=== PATIENT | male | born 1960 | race Caucasian/White ===

== ENCOUNTER → 2020-10-18 16:03 | Outpatient (BNVA) | payer OTHER, SELFPAY | PROVIDERS: Family Provider Family Medicine; Visit Provider Nurse Practitioner Family | DX: Z01.812 Encounter for preprocedural laboratory examination (principal); Z20.822 Contact with and (suspected) exposure to COVID-19 | CPT/HCPCS: 87635 ==

== ENCOUNTER 2020-10-24 09:01 | Outpatient (CLI) | payer OTHER, SELFPAY ==
--- NOTE | 2020-10-24 09:10 | XRR_ITS ---
PROCEDURE INFORMATION: Exam: XR Chest Exam date and time: 10/24/2020 9:27 AM Age: 60 years old Clinical indication: Patient HX: Chest pain TECHNIQUE: Imaging protocol: XR of the chest. Views: Frontal and lateral upright, 2 views. COMPARISON: CR Chest 2 views* [id number] 12/29/2013 2:00 PM FINDINGS: Lungs: The pulmonary vasculature remains congested. Bilateral lateral basilar subsegmental atelectasis. The lungs are otherwise peripherally clear bilaterally. Pleural spaces: No pleural effusion. No pneumothorax. Heart/Mediastinum: The heart is normal in size and contour. Bones/joints: Stable. XR/XR chest 2V* [id number] IMPRESSION: 1. Persistent pulmonary vascular congestion. 2. Bilateral lateral basilar subsegmental atelectasis.
--- NOTE | 2020-10-24 09:11 | USCV_ITS ---
Warren Mix Age: 60 Gender: M : 1960 Exam Date: 10/24/2020 09:44 Ordering Phys: Technologist: Kevin Estrada Exam Location: [facility] [place] Indication: SOB BP: 118 / 65 HR: 76 Rhythm: Sinus Technical Quality: Fair MEASUREMENTS (Male / Female) Normal Values 2D ECHO LV Diastolic Diameter PLAX 2.7 cm 4.2 - 5.9 / 3.9 - 5.3 cm LV Systolic Diameter PLAX 1.7 cm IVS Diastolic Thickness 1.8 cm 0.6 - 1.0 / 0.6 - 0.9 cm IVS Systolic Thickness 2.3 cm LVPW Diastolic Thickness 1.7 cm 0.6 - 1.0 / 0.6 - 0.9 cm LVPW Systolic Thickness 2.0 cm LVOT Diameter 2.1 cm LV Ejection Fraction 2D Teich 67.6 % LV Ejection Fraction MOD 2C 63.0 % LV Ejection Fraction 2C AL 62.7 % LA Diameter 4.0 cm LA Width 4.2 cm LA Height 5.3 cm RA Width 5.0 cm RA Height 4.5 cm Aorta at Sinotubular Diameter 3.0 cm M-MODE LV Diastolic Diameter MM 5.6 cm 4.2 - 5.9 / 3.9 - 5.3 cm LV Systolic Diameter MM 2.9 cm LV Ejection Fraction MM Teich 78.8 % IVS Diastolic Thickness MM 1.0 cm 0.6 - 1.0 / 0.6 - 0.9 cm IVS Systolic Thickness MM 1.8 cm LVPW Diastolic Thickness MM 2.0 cm 0.6 - 1.0 / 0.6 - 0.9 cm LVPW Systolic Thickness MM 2.2 cm Aortic Annulus Diameter 3.2 cm LA Ao Ratio MM 1.1 MV E Point Septal Separation 0.4 cm DOPPLER AV Peak Velocity 130.0 cm/s LVOT Peak Velocity 138.0 cm/s AV Area Cont Eq vti 3.2 cm squared AV Area Cont Eq pk 3.8 cm squared MV Area PHT 3.1 cm squared Mitral E to A Ratio 0.5 MV E' Velocity 42.0 cm/s Right Atrial Pressure 3.0 mmHg PV Peak Velocity 43.0 cm/s RV Acceleration Time 0.1 s RV Ejection Time 0.2 s RV AcT/ET 0.4 FINDINGS Left Ventricle Normal left ventricular size and systolic function, EF 61 %. No regional wall motion abnormalities. Mild left ventricular hypertrophy. Grade I/IV diastolic dysfunction (abnormal relaxation filling pattern), normal to mildly elevated filling pressures. Right Ventricle The right ventricle is normal in size and function. Right Atrium The right atrium is normal in size. Left Atrium The left atrium is normal in size. Mitral Valve No gross abnormalities noted. Aortic Valve Thickened aortic valve. Tricuspid Valve Tricuspid valve not well visualized. Pulmonic Valve Pulmonic valve not well visualized. Pericardium Normal pericardium without effusion. Aorta Normal ascending aorta dimension. CONCLUSIONS Normal left ventricular size and systolic function, EF 61 %. No regional wall motion abnormalities. Mild left ventricular hypertrophy. Grade I/IV diastolic dysfunction (abnormal relaxation filling pattern), normal to mildly elevated filling pressures. Thickened aortic valve. There is no pericardial effusion. Technically difficult study because of the poor ultrasonic window. No previous study is available for comparison. Dr Samantha White MD FACC (Electronically Signed) Final Date: 24 October 2020 14:50 S
--- NOTE | 2020-10-24 13:27 | PFTS_ITS ---
Date of Study:10/24/20 Date of Dictation: MECHANICS: Forced vital capacity (FVC) is reduced. Forced expiratory volume in one second (FEV1) is reduced. FEV1/FVC is normal. FLOW VOLUME LOOP: Narrow. LUNG VOLUMES: Not measured DIFFUSING CAPACITY FOR CARBON MONOXIDE: Not measured INTERPRETATION: The pulmonary function tests are consistent with moderately severe restriction. There is no significant postbronchodilator response. MTDD
== END 2020-10-24 09:02 | disposition home or self-care (01) ==
LOC: RAD 09:06
PROVIDERS: Visit Provider Nurse Practitioner Family
DX: R07.9 Chest pain, unspecified (principal); R06.02 Shortness of breath; I35.8 Other nonrheumatic aortic valve disorders; J98.11 Atelectasis
CPT/HCPCS: 71046; 93306; 94060; J7611

== ENCOUNTER 2020-12-12 07:11 | Outpatient (CLI) | payer OTHER, SELFPAY ==
[2020-12-12 07:30] VITALS: BMI 39.3
--- NOTE | 2020-12-12 08:24 | NMCV_ITS ---
NM marbella perf SPECT r/s* [id number] Warren Mix Age: 60 Gender: M : 1960 Exam Date: 12/12/2020 08:24 Ordering Phys: Georgina Cochran MD ([email or web address]) Technologist: NICOLE Summers Exam Location: [facility] Indications: CHEST PAIN STRESS TEST Please see separate stress test report in [facility] for full findings IMAGE PROTOCOL Rest/Stress 1 Lexiscan Day Radiopharmaceutical Dose (mCi) Administration Site Administered by Rest: Tc-99m 10.8 IV NICOLE Parsons Sestamibi Stress:Tc-99m 32.9 IV NICOLE Parsons Sestamibi Rest: 12-Dec-2020 60 Discovery 630 Stress: 12-Dec-2020 30 Discovery 630 0.4mg Lexiscan. Images obtained in supine and prone position. SPECT RESULTS Technical Quality: Excellent Raw Data Analysis: Normal Image Corrections: No attenuation or motion correction applied Summed Stress Score: 0 Summed Rest Score: 2 Summed Difference Score: 0 PERFUSION FINDINGS Patchy area of decreased tracer uptake in mid inferior, mid inferolateral and apical septal edwards on rest images with improved tracer uptake on stress images. This is suggestive of attenuation artifact. FUNCTIONAL RESULTS (calculated via Gated SPECT) Stress Image LV EF (%): 70 Stress EDV (mL):89 TID: 0.93 Stress ESV (mL):27 FUNCTIONAL FINDINGS: The left ventricle is normal in size. Transient Ischemia Dilatation of 0.93. There is normal left ventricular systolic function. The left ventricular ejection fraction is normal with a value of 70%. There is normal left ventricular wall thickening with no regional wall motion abnormality. Normal end-diastolic and end-systolic volumes. IMPRESSIONS 1. Myocardial perfusion imaging is normal. 2. Overall left ventricular systolic function is normal without regional wall motion abnormalities. 3. The left ventricular ejection fraction is normal with a value of 70%. 4. No coronary ischemia based on the study. 5. EKG portion of the study will be reported separately. Georgina Cochran MD (Electronically Signed) Final Date: 14 December 2020 19:53 S
--- NOTE | 2020-12-12 08:24 | ECG_ITS ---
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 Interpretive Statements NAME OF STUDY: LEXISCAN SESTAMIBI STRESS TEST INDICATION: Chest pain on exertion PROCEDURE: At the baseline, the blood pressure was 130/89 mmHg with a heart rate of 80 bpm. The electrocardiogram showed normal sinus rhythm, normal axis. T wave inversion in lead III, aVF and V6. The Lexiscan was infused over a period of 20 seconds. A total of 0.4 milligrams of Lexiscan was infused. The stress phase was continued for a total of 5 minutes. Heart rate at the end of the stress phase was 100 bpm with a blood pressure of 109/77 mmHg. The EKG at the peak infusion revealed sinus rhythm with no significant ST-T wave changes.. Sestamibi was injected 20 seconds after the Lexiscan infusion. Blood pressure at the end of the recovery phase was 117/79 mmHg with a heart rate of 95 beats per minute. CONCLUSION: 1. No significant EKG changes with the LexiScan infusion. 2. No LexiScan induced chest pain or cardiac arrhythmia. 3. Normal blood pressure and heart rate response. 4. Sestamibi/sestamibi perfusion scan pending; see separate report. Electronically Signed On 12-21-2020 12:49:55 CDT by Georgina Cochran M.D. [email or web address] [facility].[email or web address]/store/[id number]
--- NOTE | 2020-12-12 09:32 | PC.NURSE ---
pt only able to reach 81% and o2 sat dropped to 72%. called dr mortensen and received verbal order to change to chemical stress test.
[2020-12-12] MEDS: regadenoson 0.4 Mg/5 ml Syringe IVP (09:50)
[2020-12-12 09:51] VITALS: BP 117/79; PULSE 95
== END 2020-12-12 07:12 | disposition home or self-care (01) ==
PROVIDERS: PCP Family Medicine; Visit Provider Internal Medicine Cardiovascular Disease
DX: R07.9 Chest pain, unspecified (principal)
CPT/HCPCS: 78452; 93017; A9500; J2785

== ENCOUNTER 2020-12-29 15:57 | Outpatient (CLI) | payer OTHER, SELFPAY ==
--- NOTE | 2020-12-29 16:34 | XR_ITS ---
WS: [id number] XR hand LT min 3V* [id number] REASON FOR EXAM: RULE OUT INFLAMMATORY ARTHRITIS FINDINGS: Mild narrowing of the DIP joint spaces with small osteophyte formation in the second through the fift h fingers of the left hand. Mild narrowing of the MIP joints and the same fingers. 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 No significant arthropathic change in the carpal metacarpal joint of the thumb. No soft tissue abnormality. XR/XR hand LT min 3V* [id number] IMPRESSION: Mild changes of osteoarthritis as above.
--- NOTE | 2020-12-29 16:34 | XR_ITS ---
WS: [id number] XR hand RT min 3V* [id number] REASON FOR EXAM: RULE OUT INFLAMMATORY ARTHRITIS FINDINGS: There is mild narrowing of the joint spaces of the DIP joints of the second through the fourth finger s with small marginal osteophytes at the base of the distal phalanges. Similar arthropathic changes are seen in the interphalangeal joint of the thumb and also within the m etacarpal phalangeal joint of the thumb. There is not appear to be significant arthropathic change in the carpal metacarpal joint of the thumb. Metacarpal phalangeal joints of the fingers are without significant arthropathic change. XR/XR hand RT min 3V* [id number] IMPRESSION: Mild changes of osteoarthritis in the right hand.
--- NOTE | 2020-12-29 16:34 | XR_ITS ---
WS: [id number] CHEST 2 VIEWS HISTORY: RULE OUT PNEUMONIA COMPARISON: 10/24/2020 Lungs: Diffusely coarsened thickened interstitial markings and reticulations throughout both lungs. M ild progression since 10/24/2020. There is slight blunting of the costophrenic angle suggesting pleura l thickening or small effusions. No pneumothorax. Cardiac size: Normal. Mediastinum/Aorta: Mediastinal prominence with prominent pulmonary arteries. Bones: Increase in the thoracic kyphosis. XR/XR chest 2V* [id number] IMPRESSION: 1. Mild increase in the coarse and interstitial thickening throughout both abdullahi gs. Differential includes pulmonary congestion and also developing and progress mendel pulmonary fibrosis. 2. Prominent hilar regions may be due to progression of pulmonary hypertension . Cannot exclude pneumonia or developing nodule in the RIGHT suprahilar region. Recommend chest CT with IV contrast.
[2020-12-29 17:20] LABS: Basophils # 0.1 10^3/uL (0.0-0.1); Basophils % 0.7 %; Eosinophils # 0.5 10^3/uL (0.0-0.8); Eosinophils % 4.8 %; Hematocrit 40.6 % (42.0-52.0); Hemoglobin 13.2 g/dL (11.7-16.6); Lymphocytes # 1.1 10^3/uL (0.8-4.8); Lymphocytes % 11.3 %; Mean Corpuscular HGB Conc 32.5 g/dL (30.0-36.0); Mean Corpuscular Hemoglobin 28.7 pg (28.0-34.0); Mean Corpuscular Volume 88.3 fl (80-94); Mean Platelet Volume 9.2 fL (7.4-10.4); Monocytes % 9.9 %; Neutrophils # 7.16 10^3/uL (1.8-7.7); Neutrophils % 72.9 %; Nucleated Red Blood Cells % 0 %; Platelet Count 322 10^3/cmm (130-400); Red Cell Distribution Width 14.8 % (12.1-15.1); White Blood Count 9.8 10^3/uL (4.0-10.0)
[2020-12-29 18:08] LABS: C Reactive Protein 11.5 mg/L (0.0-4.9); Erythrocyte Sedimentation Rate 32 mm/hr (0-10); NT Pro B Type Natriuretic Pept 26 pg/mL (0-125)
[2021-01-02 15:33] LABS: Cyclic Citrullinated Peptide <16 UNITS
[2021-01-02 15:47] LABS: Anti-Nuclear Antibody Screen NEGATIVE (NEGATIVE)
[2021-01-02 15:56] LABS: Anti-Double Strand DNA AB <1 IU/mL; Centromere B Antibody <1.0 NEG AI (<1.0 NEG); JO-1 Antibody <1.0 NEG AI (<1.0 NEG); SS A Ro Sjogrens Antibody <1.0 NEG AI (<1.0 NEG); SS-B/LA IGG <1.0 NEG AI (<1.0 NEG); Sm/RNP Antibody <1.0 NEG AI (<1.0 NEG)
[2021-01-02 17:26] LABS: Immunoglobulin E 99 kU/L (<OR=114)
[2021-01-02 18:47] LABS: Alternaria Alternata (M6) Ige <0.10 kU/L; Alternaria Class 0; Bermuda Class 0; Bermuda Grass (G2) Ige <0.10 kU/L; Cat Dander (E1) Ige <0.10 kU/L; Cat Dander Class 0; Common Ragweed (Short) (W1) Ig <0.10 kU/L; D. Farinae Class 0; Dermatophagoides Class 0; Dermatophagoides Farinae (D2) <0.10 kU/L; Dermatophagoides Pteronyssinus <0.10 kU/L; Dog Dander (E5) Ige <0.10 kU/L; Dog Dander Class 0; Elm (T8) Ige <0.10 kU/L; Elm Class 0; English Plantain (W9) Ige <0.10 kU/L; English Plantain Class 0; House Dust (Greer) (H1) Ige <0.10 kU/L; House Dust (Hollister- Stier) <0.10 kU/L; House Dust Class 0; Immunoglobulin E 91 kU/L (<OR=114); Johnson Grass (G10) Ige <0.10 kU/L; Johnson Grass Cl 0; June Grass Class 0; June Grass(Kentucky Blue) (G8) <0.10 kU/L; Lamb'S Quarters (Goose Foot) <0.10 kU/L; Lamb'S Quarters Class 0; Maple (Box Elder) (T1) Ige <0.10 kU/L; Maple Class 0; Meadow Fescue (G4) Ige <0.10 kU/L; Meadow Fescue Class 0; Mucor Racemosus Class 0; Oak (T7) Ige <0.10 kU/L; Oak Class 0; Orchard Grass (Cocksfoot) (G3) <0.10 kU/L; Penicillium Class 0; Penicillium Notatum (M1) Ige <0.10 kU/L; Perennial Rye Grass (G5) Ige <0.10 kU/L; Perennial Rye Grass Class 0; Ragweeed Class 0; Rough Marsh Elder (W16) Ige <0.10 kU/L; Rough Marsh Elder Class 0; Sweet Vernal Class 0; Sweet Vernal Grass (G1) Ige <0.10 kU/L; Timothy Grass (G6) Ige <0.10 kU/L; Timothy Grass Class 0
[2021-01-04 19:13] LABS: Aspergillus Fumigatus, Igg Ab, 26.7 mg/L (<=102)
== END 2020-12-29 15:58 | disposition home or self-care (01) ==
LOC: RAD 16:04
PROVIDERS: PCP Family Medicine; Visit Provider Internal Medicine Pulmonary Disease
DX: R06.09 Other forms of dyspnea (principal); M25.641 Stiffness of right hand, not elsewhere classified; M25.642 Stiffness of left hand, not elsewhere classified; J98.4 Other disorders of lung
CPT/HCPCS: 36415; 71046; 73130; 82785; 83519; 83880; 85025; 85651; 86003; 86038; 86140; 86225; 86235; 86431

== ENCOUNTER 2021-01-16 06:53 | Inpatient (IN) | payer OTHER, SELFPAY ==
[2021-01-16] VITALS (38 sets, daily range): BP systolic 84–116; BP diastolic 49–73; PULSE 71–110; RESP 19–29; TEMP 36.5–36.8; O2SAT 78–94; BMI 39.0; BMI 39.2
--- NOTE | 2021-01-16 07:02 | XR_ITS ---
WS: [id number] XR chest 1V portable [id number] REASON FOR EXAM: dyspnea/cough COMPARISON: Chest x-rays from 12/29/2013, 10/24/2020, and 12/29/2020 were reviewed. FINDINGS: Progressive development of diffuse interstitial lung disease from 12/29/2013 to the current examinatio ns. The interstitial lung disease appears more prominent in the periphery of the lungs. There is decr easing lung volume. The hilar regions are enlarged. The chest is stable compared to the most recent examination of 12/29/2020 with no definite acute abnor mality. XR/XR chest 1V portable [id number] IMPRESSION: No acute changes since 12/29/2020. Progressive interstitial lung disease as above. Enlarged hilar regions which may be due to adenopathy or enlarged pulmonary art eries secondary to pulmonary artery hypertension from the interstitial lung dis ease.
--- NOTE | 2021-01-16 07:03 | ECG_ITS ---
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
--- NOTE | 2021-01-16 07:09 | ED_ITS ---
HPI - SOB/Dyspnea General: Chief Complaint: Shortness of Breath/Dyspnea Stated Complaint: DIFF BREATHING Time Seen by Provider: 01/16/21 07:02 History of Present Illness: HPI Narrative: 60-year-old male with a history of COPD, CHF, recent Covid infection (per pt late October tested positive at work). 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 Additionally he had a echo which showed some grade 1-2 diastolic dysfunction a chest x-ray showing pulmonary vascular congestion. Patient is not on any oxygen at home he does use inhaled beta agonists. He last used inhaled beta beta agonist about 2 hours ago so did offer some relief. He had increasing cough and shortness of breath progressively worsened over the last couple of days with increased productive mucousy sputum that is changed from his baseline. He denies any chest pain. Has not noted any swelling. no orthopnea. MD elicited complaint: shortness of breath and cough Pertinent past history: COPD and congestive heart failure Onset (ago): hour(s) Timing: constant Severity: moderate Exacerbating factors: exertion and coughing Relieving factors: oxygen and rest Known history of: COPD and congestive heart failure Associated symptoms: Reports chest congestion, cough and fever(s) (Subjective); Deny abdominal pain, chest pain, diaphoresis, dizziness, extremity pain, hemoptysis, lightheadedness, myalgias, nausea, orthopnea, palpitations, paresthesias, polydipsia, polyuria, rash, sense of impending doom or syncope Treatment prior to arrival: none Review of Systems Const: Reports: fever(s) (Subjective); Denies: diaphoresis ENMT: Denies: throat pain, ear or mastoid pain, nasal discharge or nasal congestion Card: Denies: chest pain, palpitations, lightheadedness, syncope or orthopnea Resp: Reports: chest congestion; Denies: hemoptysis GI: Denies: abdominal pain or nausea : Denies: flank pain, dysuria, urinary frequency or urinary urgency Musc: Denies: extremity pain Skin/Breast: Denies: rash or pruritus Neuro: Denies: dizziness Endo: Denies: polyuria or polydipsia PFSH ED PFSH: Medical History Diabetes mellitus GERD (gastroesophageal reflux disease) HTN (hypertension) Hyperlipidemia Obstructive sleep apnea Surgical History Hx of cholecystectomy 1996 Hx of elbow surgery Family History Grandfather Heart disease CHF (congestive heart failure) paternal Father CAD (coronary artery disease) Diabetes Mother Cancer ovarian Family/Other Diabetes Social History Smoking and tobacco status: former smoker Quit status (tobacco): has quit using tobacco Year quit tobacco: 2004 Former quit date comment: 2ppd x 25 years Alcohol intake: current Alcohol intake frequency: holidays/special occasions only Physical Exam Const: COMMON NORMALS: no acute distress GENERAL APPEARANCE: cooperative and comfortable ORIENTATION/CONSCIOUSNESS: Yes awake, Yes oriented to person, Yes oriented to place and Yes oriented to time HENMT: COMMON NORMALS: normocephalic, atraumatic and hearing grossly normal bilaterally HEAD & SCALP: normocephalic and atraumatic Neck/C-Spine: COMMON NORMALS: no JVD Resp: AUSCULTATION: rhonchi and wheezes Cardio: COMMON NORMALS: no JVD, regular rate, regular rhythm and No murmurs present (Cardio) RATE: regular rate RHYTHM: regular rhythm GI: COMMON NORMALS: Soft to palpation and No hepatosplenomegaly present AUSCULTATION: Yes normoactive bowel sounds PALPATION: Yes Soft to palpation, No Tenderness to palpation present (GI), No Guarding due to palpation present (GI) and Yes No hepatosplenomegaly present Extremity: COMMON NORMALS: normal to inspection, capillary refill normal, no clubbing, cyanosis or edema, no calf tenderness and no pedal edema Neuro: SENSORIUM/ORIENTATION: Yes oriented to person, Yes oriented to place and Yes oriented to time Skin: COMMON NORMALS: no rashes or lesions noted GENERAL SKIN EXAM: no rashes or lesions noted Course 2 Vital Signs: Vital signs: Vital Signs Pulse Rate 71 01/16/21 08:51 Respiratory Rate 20 H 01/16/21 08:51 Blood Pressure 101/64 01/16/21 08:50 Pulse Oximetry 94 01/16/21 08:51 MDM - SOB/Dyspnea MDM Narrative: Medical decision making narrative: Patient has multiple different potential etiologies. Does look like his advancing pulmonary fibrosis he has previous diagnosis of pulmonary hypertension and COPD as well we were able to titrate him back from the initial 15 L by nonrebreather he was getting down to 5 L by nasal cannula. We will go ahead and admit cover with IV antibiotics discussed Dr. Sharif since he was on Levaquin in mid-December we will put him on Vanco and Zosyn. We are working on getting a copy of the positive Covid test he reports he had in October, after some phone calls it sounds as if it was done through his work and they have documentation of it there. Initially appeared to be in some mild therapy given 60 Lasix his blood pressure decrease we gave him 500 of IV fluids were holding and further diuretics at this time. Discussed Dr. Sharif orders written. Lab Data: Labs: Lab Results 01/16/21 01/16/21 01/16/21 07:15 07:15 07:15 WBC 17.2 10^3/uL H 10 ^3/uL (4.0-10.0) RBC 4.37 10^6/uL 10^6 /uL (4.1-5.3) Hgb 12.6 g/dL g/dL (11.7-16.6) Hct 39.6 % L % (42.0-52.0) MCV 90.6 fl fl (80-94) MCH 28.8 pg pg (28.0-34.0) MCHC 31.8 g/dL g/dL (30.0-36.0) RDW 15.6 % H % (12.1-15.1) Plt Count 308 10^3/cmm 10^3 /cmm (130-400) MPV 9.8 fL fL (7.4-10.4) Neut % (Auto) 82.2 % % Lymph % (Auto) 6.0 % % [place] % (Auto) 8.9 % % Eos % (Auto) 2.0 % % Baso % (Auto) 0.4 % % Neut # (Auto) 14.13 10^3/uL H 1 0^3/uL (1.8-7.7) Lymph # (Auto) 1.0 10^3/uL 10^3/ uL (0.8-4.8) [place] # (Auto) 1.5 10^3/uL H 10^ 3/uL (0.2-0.9) Eos # (Auto) 0.3 10^3/uL 10^3/ uL (0.0-0.8) Baso # (Auto) 0.1 10^3/uL 10^3/ uL (0.0-0.1) Nucleated RBC % (a uto) 0 % % Nucleated RBCs # 0.0 /100WBC /100W BC Specimen Type Sample Site ABG pH ABG pCO2 ABG pO2 ABG HCO3 ABG O2 Saturation ABG Base Excess Jorden Test A-a O2 Gradient Hematocrit Hgb O2 Saturation Carboxyhemoglobin Methemoglobin Total Hemoglobin Ionized Calcium O2 Delivery Device O2 Liters/Min FiO2 Mine Boss ID Sodium 135 mmol/L L mmol /L (136-145) Potassium 4.3 mmol/L mmol/L (3.5-5.1) Chloride 103 mmol/L mmol/L (98-107) Carbon Dioxide 18 mmol/L L mmol/ L (22-29) Anion Gap 18.3 (5-19) BUN 13 mg/dL mg/dL (6-20) Creatinine 0.6 mg/dL L mg/dL (0.7-1.2) GFR Calculation 137.9 mL/min H mL /min (90-130) Glucose 214 mg/dL H mg/dL (65-115) Calculated Osmolal ity 287 mOsm/kg mOsm/ kg (285-295) Lactic Acid Calcium 8.6 mg/dL mg/dL (8.5-10.5) Total Bilirubin 0.9 mg/dL mg/dL (0.15-1.2) AST 16 U/L U/L (0-40) ALT 16 U/L U/L (0-41) Alkaline Phosphata se 61 IU/L IU/L (40-130) Troponin T Baselin e 8 ng/L ng/L (0-15) NT-Pro-B Natriuret Pep 114 pg/mL pg/mL (0-125) Total Protein 7.2 g/dL g/dL (6.6-8.7) Albumin 3.7 g/dL g/dL (3.5-5.2) Globulin 3.5 g/dL g/dL (1.3-4.6) 01/16/21 01/16/21 07:15 07:24 WBC RBC Hgb Hct MCV MCH MCHC RDW Plt Count MPV Neut % (Auto) Lymph % (Auto) [place] % (Auto) Eos % (Auto) Baso % (Auto) Neut # (Auto) Lymph # (Auto) [place] # (Auto) Eos # (Auto) Baso # (Auto) Nucleated RBC % (a uto) Nucleated RBCs # Specimen Type Arterial Sample Site Radial, left ABG pH 7.40 (7.35-7.45) ABG pCO2 30.9 mmHg L mmHg (35-45) ABG pO2 68.1 mmHg L mmHg (80.0-100.0) ABG HCO3 19.3 mmol/L L mmo l/L (22-26) ABG O2 Saturation 94.2 ABG Base Excess -4.5 mmol/L L mmo l/L (-2.0-2.0) Jorden Test Pos A-a O2 Gradient 23.1 mmHg H mmHg (5-10) Hematocrit 38.4 % L % (42-52) Hgb O2 Saturation 91.4 % L % (95-100) Carboxyhemoglobin 2.2 %THgb %THgb (0.4-20.1) Methemoglobin 0.8 % % (0.4-1.5) Total Hemoglobin 12.5 g/dL L g/dL (14-18) Ionized Calcium 1.2 mmol/L mmol/L (1.1-1.4) O2 Delivery Device Nc O2 Liters/Min 5.0 % % FiO2 40.0 % % Mine Boss ID Bd Sodium 137.0 mmol/L mmol /L (131-143) Potassium 4.0 mmol/L mmol/L (3.5-5.0) Chloride Carbon Dioxide Anion Gap BUN Creatinine GFR Calculation Glucose 223.0 mg/dL H mg/ dL (70-115) Calculated Osmolal ity Lactic Acid 3.0 mmol/L H mmol /L (0.5-2.2) Calcium Total Bilirubin AST ALT Alkaline Phosphata se Troponin T Baselin e NT-Pro-B Natriuret Pep Total Protein Albumin Globulin Discharge Plan Discharge Patient Disposition: Admitted As Inpatient Admit Provider: Macho Sharif Clinical Impression: COPD (chronic obstructive pulmonary disease), Post-COVID syndrome, Obstructive sleep apnea, Diabetes mellitus, Pulmonary artery hypertension Condition: Stable Coding Level of Care Code ED Staff Nurse [facility] Resource Team for Chg Fwd Exam Comprehensive
[2021-01-16] MEDS: ipratropium-albuterol 3 mL Neb INHALATION ×4 (07:20→20:57)
[2021-01-16 07:27] LABS: Basophils # 0.1 10^3/uL (0.0-0.1); Basophils % 0.4 %; Eosinophils # 0.3 10^3/uL (0.0-0.8); Hematocrit 39.6 % (42.0-52.0); Hemoglobin 12.6 g/dL (11.7-16.6); Mean Corpuscular HGB Conc 31.8 g/dL (30.0-36.0); Mean Corpuscular Hemoglobin 28.8 pg (28.0-34.0); Mean Corpuscular Volume 90.6 fl (80-94); Mean Platelet Volume 9.8 fL (7.4-10.4); Monocytes # 1.5 10^3/uL (0.2-0.9); Monocytes % 8.9 %; Neutrophils # 14.13 10^3/uL (1.8-7.7); Neutrophils % 82.2 %; Nucleated Red Blood Cells % 0 %; Platelet Count 308 10^3/cmm (130-400); Red Blood Count 4.37 10^6/uL (4.1-5.3); Red Cell Distribution Width 15.6 % (12.1-15.1); White Blood Count 17.2 10^3/uL (4.0-10.0)
[2021-01-16 07:36] LABS: ABG PCO2 30.9 mmHg (35-45); Alveolar-Arterial Oxygen Gradi 23.1 mmHg (5-10); Arterial Blood Gas Hematocrit 38.4 % (42-52); Base Excess ABG -4.5 mmol/L (-2.0-2.0); Blood Gas Allen Test Pos; Blood Gas Operator Identificat BD; Blood Gas Sample Site Radial, left; Blood Gas Sample Type Arterial; Carboxyhemoglobin 2.2 %THgb (0.4-20.1); HCO3 ABG 19.3 mmol/L (22-26); HGB O2 Sat 91.4 % (95-100); Ionized Calcium Level - ABG 1.2 mmol/L (1.1-1.4); Methemoglobin 0.8 % (0.4-1.5); Oxygen Device NC; Oxygen Saturation ABG 94.2; PO2 ABG 68.1 mmHg (80.0-100.0); Total Hemoglobin 12.5 g/dL (14-18)
[2021-01-16] MEDS: FUROsemide 10 mg/mL SDV 10mL 60 MG IVP (07:42)
[2021-01-16] MEDS: levofloxacin-dextrose 5 % 750 MG/150 ML PREMIX 100 MG IV (07:47)
[2021-01-16 07:49] LABS: Troponin(5th) Baseline 8 ng/L (0-15)
[2021-01-16 08:09] LABS: Alanine Aminotransferase 16 U/L (0-41); Albumin Level 3.7 g/dL (3.5-5.2); Alkaline Phosphatase 61 IU/L (40-130); Anion Gap 18.3 (5-19); Aspartate Amino Transferase 16 U/L (0-40); Blood Urea Nitrogen 13 mg/dL (6-20); Calcium 8.6 mg/dL (8.5-10.5); Carbon Dioxide 18 mmol/L (22-29); Chloride 103 mmol/L (98-107); Creatinine Clr Calc Pharmacy 174.6578; Globulin 3.5 g/dL (1.3-4.6); Glomerular Filtration Rate 137.9 mL/min (90-130); Glucose 214 mg/dL (65-115); NT Pro B Type Natriuretic Pept 114 pg/mL (0-125); Osmolality Calculated 287 mOsm/kg (285-295); Potassium 4.3 mmol/L (3.5-5.1); Sodium 135 mmol/L (136-145); Total Bilirubin 0.9 mg/dL (0.15-1.2); Total Protein 7.2 g/dL (6.6-8.7)
[2021-01-16] MEDS: sodium chloride 0.9% 500 ML 999 ML IV (08:14)
--- NOTE | 2021-01-16 08:56 | CT_ITS ---
WS: [id number] CT angio chest PE protcl [id number] REASON FOR EXAM: dyspnea, hemoptysis TECHNIQUE: Coronal and sagittal 2-D and MIP reformations. IV CONTRAST ADMINISTERED: 73 mL of Omnipaque 350 TOTAL EXAM DLP: 541.[address] scans at [facility] use at least one of these dose optimization techniques: automat ed exposure control; mA and/or kV adjustment per patient size (includes targeted exams where dose is matched to clinical indication); or iterative reconstruction. FINDINGS: There are no pulmonary emboli. The right and left main pulmonary arteries are borderline enlarged at slightly greater than 3 cm in diameter. There is hilar and mediastinal adenopathy. Normal thoracic aorta. Calcified granulomatous disease in both hemithoraces. Coarse subpleural predominating reticular interstitial changes. In addition there is a mosaic pattern of dense groundglass density with air bronchograms. Clinical distribution in the upper and lower lob es both centrally and peripherally located. No discrete nodules or lung mass. No pleural fluid. Old pleural calcification over the right hemidiaphragm. CT/CT angio chest PE protcl [id number] IMPRESSION: Interstitial lung disease which by chest x-ray has been progressive since 2014. The groundglass densities are nonspecific and could be related to the chronic i nterstitial lung disease or could represent an acute process superimposed on ch ronic lung disease. The differential here is extensive and requires more clinical correlation. One consideration with the symmetric adenopathy would be progressive sarcoidosis. The appearance is not typical for Covid
--- NOTE | 2021-01-16 09:03 | ECG_ITS ---
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1960 Requested By: Jas Duenas Order Number: [id number] Reading MD: VON MARIE Measurements Intervals [place] Rate: 83 P: 15 OR: 183 QRS: -2 QRSD: 97 T: 33 QT: 376 QTc: 444 Interpretive Statements SINUS RHYTHM POSSIBLE LEFT ATRIAL ENLARGEMENT [-0.1mV P-WAVE IN V1/V2] LEFT VENTRICULAR HYPERTROPHY AND ST-T CHANGE [VOLTAGE CRITERIA PLUS ST/T ABNORMALITY] Compared to ECG 01/16/2021 07:14:32 No significant changes Electronically Signed On 01-16-2021 20:23:24 CDT by VON MARIE [email or web address] Indiagreenwood leflore hospitalSalutaris Medical Devicesmemorial [facility].[employer]/store/[id number]
--- NOTE | 2021-01-16 09:06 | PM.HP ---
Providers/Chief Complaint Admitting Physician: Macho Sharfi MD Primary Care Provider: Vernon Hoff MD Chief Complaint: DIFF BREATHING History of Present Illness Warren Mix is a 60 year old male who presents to the emergency department with increasing shortness of breath the last 2 to 3 days. He initially had greenish sputum but now it is clearing. He did have a little bit of blood at 1 point. He believes he had fever but did not take his temperature during this timeframe. He has previously had Covid, on November 13 when he was tested at work. He reports he gets some chest discomfort with exertion, which has been evaluated by cardiology. He has been short of breath altogether since June, with significant shortness of breath with exertion. He saw pulmonary, in December and there was concern of pulmonary fibrosis pre-existing Covid. He was to get oxygen set up but this never occurred according to the patient. He did take the 10 days of prednisone prescribed as well as 5 days of Levaquin at that time. He has many questions regarding his overall prognosis. He denies any chest discomfort currently. Previous work-up included nuclear stress testing, several x-rays, echocardiogram, inflammatory levels. Most of these were unrevealing. Echocardiogram did reveal 1/4 diastolic dysfunction, preserved EF, pulmonary hypertension at least moderate. In the emergency department he received a dose of Lasix, then some fluids, Levaquin, breathing treatment, and some Solu-Medrol Review of Systems General: Reports: 10 or more systems reviewed and unremarkable except in HPI and below Const: Reports: fever(s) Eyes: Denies: change in vision ENMT: Denies: throat pain Card: Reports: chest pain Resp: Reports: dyspnea, productive cough and hemoptysis GI: Denies: abdominal pain or nausea : Denies: flank pain Musc: Denies: neck pain Skin/Breast: Denies: rash Neuro: Denies: headache(s) Psych: Denies: anxiety or depression Endo: Denies: polyuria Berny/Lymph: Denies: easy bruising All/Imm: Denies: urticaria Medications/Allergies Home Medications Medication Instructions Recorded Confirmed Last Taken Type amlodipine 10 mg tablet 10 mg PO DAILY 11/01/20 01/16/21 01/16/21 History aspirin 81 mg tablet,delayed 81 mg PO DAILY 11/01/20 01/16/21 01/16/21 History release baclofen 20 mg tablet 20 mg PO BID 11/01/20 01/16/21 01/16/21 History carvedilol 12.5 mg tablet 12.5 mg PO BID 11/01/20 01/16/21 01/16/21 History cetirizine 10 mg tablet 10 mg PO DAILY PRN 11/01/20 01/16/21 01/16/21 History hydrocodone 10 mg-acetaminophen 1 tab PO Q6H PRN 11/01/20 01/16/21 01/16/21 History 325 mg tablet ketoconazole 2 % topical cream 1 applic TOPICAL DAILY 11/01/20 01/16/21 Unknown History lisinopril 10 mg tablet 10 mg PO BID 11/01/20 01/16/21 01/16/21 History metformin 1,000 mg tablet 1,000 mg PO BID 11/01/20 01/16/21 01/16/21 History nitroglycerin 0.4 mg sublingual 0.4 mg SUBLINGUAL Q5M PRN 11/01/20 01/16/21 Unknown History tablet pioglitazone 15 mg tablet 15 mg PO DAILY 11/01/20 01/16/21 01/16/21 History pravastatin 80 mg tablet 80 mg PO DAILY 11/01/20 01/16/21 01/15/21 History sertraline 100 mg tablet 50 mg PO DAILY 11/01/20 01/16/21 01/16/21 History sildenafil (pulm.hypertension) 20 20 mg PO TID 11/01/20 01/16/21 Unknown History mg tablet triamcinolone acetonide 0.1 % 1 applic TOPICAL DAILY 11/01/20 01/16/21 Unknown History topical cream tiotropium bromide 2.5 2 puff INHALATION DAILY #4 g 12/30/20 01/16/21 01/16/21 Rx mcg/actuation mist for inhalation chlorthalidone 25 mg PO DAILY 01/16/21 01/16/21 01/16/21 History insulin aspart U-100 [Novolog See Rx Instructions .ROUTE .COMPLEX 01/16/21 01/16/21 01/16/21 History Flexpen U-100 Insulin] liraglutide [Victoza 2-Charlie] 1.8 mg SUBCUT DAILY 01/16/21 01/16/21 01/16/21 History montelukast 10 mg PO DAILY 01/16/21 01/16/21 01/16/21 History omeprazole 20 mg PO DAILY 01/16/21 01/16/21 01/16/21 History potassium chloride 20 meq PO DAILY 01/16/21 01/16/21 01/16/21 History Allergies Allergy/AdvReac Type Severity Reaction Status Date / Time No Known Allergies Allergy Verified 12/29/20 15:04 PFSH Acute PFSH: Medical History (Updated 01/16/21 @ 09:20 by Macho Sharif MD) COPD (chronic obstructive pulmonary disease) Diabetes mellitus Ex-smoker GERD (gastroesophageal reflux disease) HTN (hypertension) Hyperlipidemia Obstructive sleep apnea Pulmonary artery hypertension Restrictive lung disease Surgical History Hx of cholecystectomy 1995 Hx of elbow surgery Family History Grandfather Heart disease CHF (congestive heart failure) paternal Father CAD (coronary artery disease) Diabetes Mother Cancer ovarian Family/Other Diabetes Social History Smoking and tobacco status: former smoker Quit status (tobacco): has quit using tobacco Year quit tobacco: 2004 Former quit date comment: 2ppd x 25 years Alcohol intake: current Alcohol intake frequency: holidays/special occasions only Vitals/I&O/Wt Last Vital Signs Pulse 71 01/16/21 08:51 Resp 20 H 01/16/21 08:51 BP 101/64 01/16/21 08:50 Pulse Ox 94 01/16/21 08:51 Weight last 48 hrs Weight 123.377 kg Physical Exam Narrative: EXAM NARRATIVE: General exam is a white male on 5 L of oxygen HEENT: Pupils equally round. Oropharynx clear. Neck is supple no lymphadenopathy or thyromegaly Cardiovascular regular rate and rhythm, no murmur Lungs dry crackles bibasilar Abdomen is soft, positive bowel sounds, obese. No obvious organomegaly exam is deferred Extremities no cyanosis clubbing or edema, cap refill brisk Skin no rash Neuro no obvious focal deficits Data : 01/16/21 07:15 01/16/21 07:15 Other data: Chest x-ray shows increasing interstitial opacities ABG demonstrates a pH of 7.40, PCO2 31, PO2 68 on 5 L LFTs normal Troponin VIII EKG demonstrates question of LVH, sinus rhythm, left atrial enlargement, normal axis Nuclear stress test November negative for reversible ischemia Echocardiogram October demonstrated preserved EF, 1/4 diastolic dysfunction, pulmonary hypertension A&P Assessment and plan (1) Acute respiratory failure with hypoxemia: Requiring 5 L of oxygen currently. Not on oxygen prior to coming in. Etiology is likely acute pneumonia, superimposed on pulmonary fibrosis. Status: Acute (2) Pneumonia: Recently completed a course of prednisone and Levaquin Initiate Zosyn and vancomycin Check bacterial antigens, MRSA PCR, sputum culture, pneumocystis PCR, Fungitell Pulmonary toilet Status: Acute (3) Interstitial lung disease: May have idiopathic pulmonary fibrosis. May need further work-up by pulmonary such as bronchoscopy. Status: Acute (4) Pulmonary artery hypertension: Continue sildenafil Status: Acute (5) Diabetes mellitus: Sliding scale insulin Status: Acute Additional A&P Information Multiple other medical problems as outlined in the past medical history Full code Lovenox for DVT prophylaxis Attestations Medical Necessity Statement*: Will need greater than 2 midnight stay for treatment of pneumonia with IV antibiotics considering oxygen need of 5 L and underlying pulmonary fibrosis. Time Spent in Patient Care: Greater than 35 minutes Coding Level of Care Code Acute Cable Installation Technician for [facility] Fwd Diagnoses Acute respiratory failure with hypoxemia J96.01 Pneumonia J18.9 Interstitial lung disease J84.9 Pulmonary artery hypertension I27.21 Diabetes mellitus E11.9
[2021-01-16 09:09] LABS: Reflex Lactate Order REFLEX LACTIC ORDERD
[2021-01-16] MEDS: iohexol 350 mg/mL 100 mL Btl IV (09:10)
[2021-01-16 09:44] LABS: Troponin 5 2HR 7.41 ng/L (0-15)
[2021-01-16 09:45] LABS: Troponin 5 2HR Delta -0.59 ABS# (0-10)
[2021-01-16 10:17] LABS: Bilirubin Urine Neg (Negative); Blood Urine Neg (Negative); Glucose Urine UA Norm (Normal); Ketones Urine Negative (Negative); Leukocyte Esterase Urine Negative (Negative); Nitrate Urine Negative (Negative); Protein Urine Neg (Negative); Specific Gravity, Urine 1.015 (1.005-1.030); Urine Appearance Clear (CLEAR); Urine Color Yellow (Yellow); Urobilinogen Urine Norm (Negative); pH Urine 5 (5-7)
[2021-01-16 10:18] LABS: Add Urine Culture? No; Squamous Epithelial Cell Urine RARE /hpf (0-5); WBC Urine RARE /hpf (0-5)
[2021-01-16 10:42] LABS: Lactic Acid level (Lactate) 1.9 mmol/L (0.5-2.2)
[2021-01-16] MEDS: enoxaparin 40 mg/0.4 mL Syringe SUBCUT (10:47)
[2021-01-16] MEDS: vancomycin 1,500 MG/300 ML PIGGYBACK 200 MG IV ×2 (10:47→17:53)
[2021-01-16] MEDS: piperacillin-tazobactam 3.375 GM in sodium chloride 0.9% (plus) 50 ML IV ×2 (11:41→19:52)
[2021-01-16 12:16] LABS: Glucose Point of Care 161 mg/dL (70-110)
--- NOTE | 2021-01-16 13:03 | ECG_ITS ---
[facility] Test Date: 2021-01-16 Pat Name: Warren Mix Department: Room: 251 Gender: Male Tar Roofer: : 1960 Requested By: Jas Duenas Order Number: [id number] Reading MD: VON MARIE Measurements Intervals [place] Rate: 78 P: 18 CT: 182 QRS: 1 QRSD: 100 T: 34 QT: 385 QTc: 440 Interpretive Statements SINUS RHYTHM POSSIBLE LEFT ATRIAL ENLARGEMENT [-0.1mV P-WAVE IN V1/V2] LEFT VENTRICULAR HYPERTROPHY AND ST-T CHANGE [VOLTAGE CRITERIA PLUS ST/T ABNORMALITY] Compared to ECG 01/16/2021 09:15:59 No significant changes Electronically Signed On 01-16-2021 20:23:15 CDT by VON MARIE [id number]
[2021-01-16 17:14] LABS: Glucose Point of Care 340 mg/dL (70-110)
--- NOTE | 2021-01-16 19:32 | PC.NURSE ---
i reported low 02 87 and high pulse 110 and reps 20 to nurse
[2021-01-16] MEDS: HYDROcodone-acetaminophen 10-325 mg Tablet 1 TAB PO (19:50)
[2021-01-16 20:25] LABS: Glucose Point of Care 344 mg/dL (70-110)
[2021-01-16] MEDS: atorvastatin 40 mg Tablet 20 MG PO (21:21)
[2021-01-16] MEDS: carvedilol 12.5 mg Tablet PO (21:21)
[2021-01-17] VITALS (38 sets, daily range): BP systolic 106–156; BP diastolic 65–105; PULSE 72–109; RESP 18–36; TEMP 36.6–36.9; O2SAT 82–94
[2021-01-17] MEDS: vancomycin 1,500 MG/300 ML PIGGYBACK 200 MG IV (03:10)
[2021-01-17] MEDS: ipratropium-albuterol 3 mL Neb INHALATION ×5 (03:32→20:05)
--- NOTE | 2021-01-17 03:35 | PC.RESP ---
patient was put on cpap of 8 fio2 60% at 23:30, patient complained of it being uncomfortably and took off the mask. patient has been on 12 lpm via high flow nasal cannula since 00:30. Found patient desaturated to low 80s when coming in for 4 am tx. gave patient their tx and their saturation came up to 91%
--- NOTE | 2021-01-17 04:28 | PC.NURSE ---
i reported low 02 89 to nurse
[2021-01-17] MEDS: piperacillin-tazobactam 3.375 GM in sodium chloride 0.9% (plus) 50 ML IV ×2 (05:20→13:08)
[2021-01-17 06:12] LABS: Basophils % 0.1 %; Hematocrit 36.3 % (42.0-52.0); Hemoglobin 11.5 g/dL (11.7-16.6); Lymphocytes # 1.2 10^3/uL (0.8-4.8); Lymphocytes % 4.6 %; Mean Corpuscular HGB Conc 31.7 g/dL (30.0-36.0); Mean Corpuscular Hemoglobin 28.3 pg (28.0-34.0); Mean Corpuscular Volume 89.4 fl (80-94); Mean Platelet Volume 9.6 fL (7.4-10.4); Monocytes # 2.2 10^3/uL (0.2-0.9); Monocytes % 8.5 %; Neutrophils # 21.79 10^3/uL (1.8-7.7); Neutrophils % 85.6 %; Nucleated Red Blood Cells % 0 %; Platelet Count 288 10^3/cmm (130-400); Red Blood Count 4.06 10^6/uL (4.1-5.3); White Blood Count 25.5 10^3/uL (4.0-10.0)
[2021-01-17 06:44] LABS: Alanine Aminotransferase 14 U/L (0-41); Albumin Level 3.3 g/dL (3.5-5.2); Alkaline Phosphatase 83 IU/L (40-130); Anion Gap 16.1 (5-19); Aspartate Amino Transferase 18 U/L (0-40); Blood Urea Nitrogen 18 mg/dL (6-20); Calcium 8.7 mg/dL (8.5-10.5); Carbon Dioxide 18 mmol/L (22-29); Chloride 102 mmol/L (98-107); Globulin 3.8 g/dL (1.3-4.6); Glomerular Filtration Rate 137.9 mL/min (90-130); Glucose 206 mg/dL (65-115); Osmolality Calculated 282 mOsm/kg (285-295); Potassium 4.1 mmol/L (3.5-5.1); Sodium 132 mmol/L (136-145); Total Bilirubin 0.5 mg/dL (0.15-1.2); Total Protein 7.1 g/dL (6.6-8.7)
[2021-01-17 06:53] LABS: Glucose Point of Care 206 mg/dL (70-110)
[2021-01-17] MEDS: HYDROcodone-acetaminophen 10-325 mg Tablet 1 TAB PO (07:34)
[2021-01-17] MEDS: FUROsemide 10 mg/mL SDV 4mL 40 MG IVP ×2 (07:36→18:20)
--- NOTE | 2021-01-17 08:01 | USCV_ITS ---
Warren Mix Age: 60 Gender: M : 1960 Exam Date: 01/17/2021 09:57 Ordering Phys: Macho Sharif MD Technologist: [place] [facility] [place]: DYSPNEA, CHEST PAIN BP: 134 / 85 HR: 78 Rhythm: Sinus Technical Quality: Adequate MEASUREMENTS (Male / Female) Normal Values 2D ECHO LV Diastolic Diameter PLAX 3.5 cm 4.2 - 5.9 / 3.9 - 5.3 cm LV Systolic Diameter PLAX 2.6 cm IVS Diastolic Thickness 1.0 cm 0.6 - 1.0 / 0.6 - 0.9 cm IVS Systolic Thickness 1.2 cm LVPW Diastolic Thickness 1.1 cm 0.6 - 1.0 / 0.6 - 0.9 cm LVPW Systolic Thickness 1.1 cm LVOT Diameter 2.3 cm LV Ejection Fraction 2D Teich 42.2 % LV Ejection Fraction MOD 2C 71.3 % LV Ejection Fraction 2C AL 70.0 % LA Diameter 4.5 cm LA Width 4.5 cm LA Height 5.2 cm RA Width 4.3 cm RA Height 5.0 cm FINDINGS Left Ventricle Normal left ventricular size and systolic function, EF 68 %. Mild left ventricular hypertrophy. No regional wall motion abnormalities. Right Ventricle Possibly normal RV size and ejection fraction. Right Atrium Could not visualize well Left Atrium Possibly of normal size Mitral Valve No gross abnormalities noted Aortic Valve No gross abnormalities noted Tricuspid Valve No gross abnormalities noted Pulmonic Valve Pulmonic valve not well visualized. Pericardium No pericardial effusion. Aorta Normal aortic annulus size. CONCLUSIONS Normal left ventricular size and systolic function, EF 68 %. Mild left ventricular hypertrophy. No regional wall motion abnormalities. Normal chamber sizes There is no pericardial effusion. Technically somewhat difficult study Dr Samantha White MD [facility] (Electronically Signed) Final Date: 17 January 2021 20:53 S
[2021-01-17] MEDS: aspirin 81 mg EC Tablet PO (08:25)
[2021-01-17] MEDS: pantoprazole DR 40 mg Tablet PO (08:25)
[2021-01-17] MEDS: potassium chloride ER 20 mEq Tablet PO (08:25)
[2021-01-17] MEDS: carvedilol 12.5 mg Tablet PO ×2 (08:25→20:49)
[2021-01-17] MEDS: montelukast sodium 10 mg Tablet PO (08:25)
[2021-01-17] MEDS: sertraline 50 mg Tablet PO (08:25)
--- NOTE | 2021-01-17 08:46 | P.PN_ITS ---
Subjective Subjective: Interval history: Warren reports he does not feel any better. He has noticed his oxygen requirement goes up. He feels okay on the oxygen, but still is short of breath when he exerts himself. A little bit of coughing last night. Medications: Reviewed: Yes Vitals/I&O/Wt Last Vital Signs Temp 98.1 F 01/17/21 07:17 Pulse 84 01/17/21 08:20 Resp 20 H 01/17/21 08:03 BP 149/74 01/17/21 07:17 Pulse Ox 90 01/17/21 08:03 01/16/21 01/17/21 01/17/21 22:59 06:59 14:59 Intake Total 590 / 1540 350 / 1890 Output Total 400 / 1300 960 / 2260 550 / 550 Balance 190 / 240 -610 / -370 -550 / -550 Weight last 48 hrs Weight 123.831 kg Weight 123.377 kg Physical Exam Narrative: EXAM NARRATIVE: General exam is a white male now on high flow oxygen Neck is supple no lymphadenopathy or thyromegaly Cardiovascular regular rate and rhythm, no murmur Lungs dry crackles bibasilar Abdomen is soft, positive bowel sounds, obese. No obvious organomegaly Extremities no cyanosis clubbing or edema, cap refill brisk Data : 01/17/21 06:00 01/17/21 06:00 Micro: Microbiology 01/16/21 09:36 MRSA Culture - Final Nose 01/16/21 11:04 Gram Stain - Final Sputum - Expectorated Sputum 01/16/21 09:36 Bacterial Antigens - Final Urine,Voided A&P Assessment and plan (1) Acute respiratory failure with hypoxemia: Now requiring high flow oxygen Etiology is likely acute pneumonia, superimposed on pulmonary fibrosis. MRSA PCR negative so vancomycin discontinued Continue Zosyn Bacterial antigen panel negative Possibility of PCP so Bactrim initiated. Fungitell, PCR for PCP sent yesterday Await sputum culture Lasix 40 mg IV now. I stopped his PATRICK inhibitor and dihydropyridine blood pressure medications yesterday to allow for diuretic. Continue pulmonary toilet Pulmonary consultation Interstitial lung disease appears to predate Covid diagnosis November 13. Status: Acute (2) Pneumonia: See notations above Status: Acute (3) Interstitial lung disease: May have idiopathic pulmonary fibrosis. Further work-up by bronchoscopy planned for tomorrow Status: Acute (4) Pulmonary artery hypertension: Continue sildenafil Repeat echocardiogram Status: Acute (5) Diabetes mellitus: Sliding scale insulin Add long-acting insulin at night Status: Acute Additional A&P Information Multiple other medical problems as outlined in the past medical history Full code Lovenox for DVT prophylaxis Attestations Medical Necessity Statement*: Needs continued hospitalization secondary to respiratory failure requiring high flow oxygen Coding Level of Care Code Acute Speech Lang Path Therapist for [facility] Fwd Diagnoses Acute respiratory failure with hypoxemia J96.01 Pneumonia J18.9 Interstitial lung disease J84.9 Pulmonary artery hypertension I27.21 Diabetes mellitus E11.9
[2021-01-17] MEDS: sulfamethoxazole-trimeth inj 480 MG in dextrose 5 % 500 ML 353.33 MG IV ×2 (09:44→18:20)
--- NOTE | 2021-01-17 10:20 | PC.CHAP ---
Pastoral Care Encounter/Spiritual Assessment Type of Contact [] Declined infrastructure architect visit [] Patient/Family/Request visit [] Outpatient visit [] Follow-up visit [] Physician referral [] Code/Alert [X] Routine visit [] Staff referral [] Actively dying [] Patient sleeping [] Family support [] [] Out of room [] Palliative care [] [] Receiving care in room [] Pre-surgical visit [] Trauma [] Long length of stay [] ICU visit [] Other: Relational/Emotional Strength [X] Patient feels connected with others/family/visitors/staff [] Distress [] Loneliness/isolation [] Abandonment Spirituality of Patient [X] Person of Anneliese [] Attends Amish of their Anneliese [] Believes in Prayer [] Reads Bible or Buddhism materials [] There are Spiritual issues to be addressed Executive Business Coach Interventions [] Prayer [x] Active listening [x] Non-anxious presence [x] Spiritual/emotional support [] Crisis/trauma care [] Spiritual counseling [] Bereavement support [] Provided bereavement packet [] Provided Bible/devotional materials [] Provided toy/stuffed animal, coloring book to patient or family member [] Provided Communion [] Anointing/[place] [] Salvation [x] Completed spiritual assessment [] Other: Impact on Illness or Injury [] Angry [] Fearful [] Anxious [] Often cries [] Exhaustion [] Unable to work [] Unable to attend synagogue [] Unable to walk/stand [] Unable to read [] Unable to drive [] Unable to eat/drink [] Unable to sleep [] Unable to be with family [] Patient intubated [] Other: Summary Visit cut short with Pt since staff came in for procedure Time spent with patient 10m
--- NOTE | 2021-01-17 11:06 | PC.NURSE ---
Transfer report called to AMANDA Serrato in ICU.
[2021-01-17 11:21] LABS: Glucose Point of Care 377 mg/dL (70-110)
[2021-01-17] MEDS: enoxaparin 40 mg/0.4 mL Syringe SUBCUT (11:21)
--- NOTE | 2021-01-17 15:59 | P.CONIM_ITS ---
Providers/Reason For Consult Consulting Physician/Specialty*: Jonah Bowles MD / Pulmonary Critical Care Reason for Consult*: Acute hypoxia in pt with interstitial lung disease Requesting Physician: Macho Sharif MD Attending Physician: Macho Sharif MD Primary Care Provider: Vernon Hoff MD History of Present Illness History of Present Illness Upon chart review; Patient is Warren Mxi is a 60 year old male with PMH COPD, interstitial lung disease, pulmonary hypertension, hypertension, type 2 diabetes, obesity, MICHAEL, GERD admitted to [facility] for Acute hypoxia. Pulmonary consulted for acute hypoxia in the setting of undiagnosed interstitial lung disease with extensive groundglass opacities on admission CT chest. He was diagnosed with COVID 19 on 11/14/20. At that time he was not hospitalized but after few weeks started desaturating on 87% on room air. He underwent cardiac work up which included negative nuclear stress testing. Echocardiogram did reveal 1/4 diastolic dysfunction, preserved EF, pulmonary hypertension at least moderate. and was given pulmonary clinic referral for further evaluation. During his pulmonary clinic visit on 12/29/20; pt reported exertional shortness of breath for several months Received second COVID vaccine 12/28/20. Reported no improvement with albuterol and Symbicort inhalers. Also has h/o of MICHAEL, uses CPAP at night and takes sidenafil for pulmonary HTN. He also complained of significant bilateral hand joint pains and morning stiffness that lasts for more than 1 hour. 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 smoked 2 PPD X 25 years and quit 2004. Upon review of previous chest x rays it appeared pt has possible interstitial lung disease since 2013. His spirometry on 10/24/20 showed moderate restriction. Accordingly CTD panel, HRCT, Full PFTs to assess DLCO and lung volumes along with spirometry. Given 5 day course of Levaquin for productive sputum and Prednisone 10 days for possible COPD exacerbation. He comes to ED on 01/16/21 with with further worsening of shortness of breath for 2 to 3 days associated with blood tinged greenish sputum which is clearing, subjective fevers and chest discomfort with exertion. In the emergency department he received a dose of Lasix, Levaquin, nebulization and steroid. Initially he was requiring 5L oxygen with abg showing PaO2 68. CTA on admission rule out PE but showed chronic interstitial lung disease predominantly in upper and middle lobe reticulations with diffuse groundglass and mediastinal lymphadenopathy. Patient was also started on broad-spectrum antibiotics vancomycin, Zosyn-MRSA nares, bacterial antigen, sputum culture were sent. Today morning patient seen at bedside. Overnight his O2 requirements went up to 10 L and patient saturating 92%. Reported subjective improvement of shortness of breath. Also reported nonproductive cough. Other labs and imaging reviewed Review of Systems General: Reports: 10 or more systems reviewed and unremarkable except in HPI and below Meds/Allergies Home Medications and Allergies Home Medications Medication Instructions Recorded Confirmed Last Taken Type amlodipine 10 mg tablet 10 mg PO DAILY 11/01/20 01/16/21 01/16/21 History aspirin 81 mg tablet,delayed 81 mg PO DAILY 11/01/20 01/16/21 01/16/21 History release baclofen 20 mg tablet 20 mg PO BID 11/01/20 01/16/21 01/16/21 History carvedilol 12.5 mg tablet 12.5 mg PO BID 11/01/20 01/16/21 01/16/21 History cetirizine 10 mg tablet 10 mg PO DAILY PRN 11/01/20 01/16/21 01/16/21 History hydrocodone 10 mg-acetaminophen 1 tab PO Q6H PRN 11/01/20 01/16/21 01/16/21 History 325 mg tablet ketoconazole 2 % topical cream 1 applic TOPICAL DAILY 11/01/20 01/16/21 Unknown History lisinopril 10 mg tablet 10 mg PO BID 11/01/20 01/16/21 01/16/21 History metformin 1,000 mg tablet 1,000 mg PO BID 11/01/20 01/16/21 01/16/21 History nitroglycerin 0.4 mg sublingual 0.4 mg SUBLINGUAL Q5M PRN 11/01/20 01/16/21 Unknown History tablet pioglitazone 15 mg tablet 15 mg PO DAILY 11/01/20 01/16/21 01/16/21 History pravastatin 80 mg tablet 80 mg PO DAILY 11/01/20 01/16/21 01/15/21 History sertraline 100 mg tablet 50 mg PO DAILY 11/01/20 01/16/21 01/16/21 History sildenafil (pulm.hypertension) 20 20 mg PO TID 11/01/20 01/16/21 Unknown History mg tablet triamcinolone acetonide 0.1 % 1 applic TOPICAL DAILY 11/01/20 01/16/21 Unknown History topical cream tiotropium bromide 2.5 2 puff INHALATION DAILY #4 g 12/30/20 01/16/21 01/16/21 Rx mcg/actuation mist for inhalation chlorthalidone 25 mg PO DAILY 01/16/21 01/16/21 01/16/21 History insulin aspart U-100 [Novolog See Rx Instructions .ROUTE .COMPLEX 01/16/21 01/16/21 01/16/21 History Flexpen U-100 Insulin] liraglutide [Victoza 2-Charlie] 1.8 mg SUBCUT DAILY 01/16/21 01/16/21 01/16/21 History montelukast 10 mg PO DAILY 01/16/21 01/16/21 01/16/21 History omeprazole 20 mg PO DAILY 01/16/21 01/16/21 01/16/21 History potassium chloride 20 meq PO DAILY 01/16/21 01/16/21 01/16/21 History Allergies Allergy/AdvReac Type Severity Reaction Status Date / Time No Known Allergies Allergy Verified 12/29/20 15:04 Current Medications Current Medications Generic Name Dose Route Start Last Admin Trade Name Freq PRN Reason Stop Dose Admin Hydrocodone Bitart/Acetaminophen 1 tab 01/16/21 09:45 01/17/21 07:34 Hydrocodone-Acetaminophen 10-325 Mg Tablet PO 1 tab Q6H PRN Administration MODERATE Pain Albuterol/Ipratropium 3 ml 01/16/21 12:00 01/17/21 15:28 Ipratropium-Albuterol 3 Ml Neb INHALATION 3 ml Q4H.RESPIRATORY JOSHUA Administration Aspirin 81 mg 01/17/21 09:00 01/17/21 08:25 Aspirin 81 Mg Ec Tablet PO 81 mg DAILY JOSHUA Administration Atorvastatin Calcium 20 mg 01/16/21 21:00 01/16/21 21:21 Atorvastatin 40 Mg Tablet PO 20 mg BEDTIME JOSHUA Administration Carvedilol 12.5 mg 01/16/21 21:00 01/17/21 08:25 Carvedilol 12.5 Mg Tablet PO 12.5 mg BID@0900,2100 JOSHUA Administration Enoxaparin Sodium 40 mg 01/16/21 11:00 01/17/21 11:21 Enoxaparin 40 Mg/0.4 Ml Syringe SUBCUT 40 mg Q24H JOSHUA Administration Piperacillin Sod/Tazobactam 50 mls @ 12.5 mls/hr 01/16/21 12:30 01/17/21 13:08 Sod 3.375 gm/ Sodium Chloride IV 12.5 mls/hr Q8H JOSHUA Administration Protocol Insulin Aspart 0 unit 01/16/21 12:00 01/17/21 11:34 Insulin Aspart 100 Unit/1 Ml SUBCUT 14 unit WM&BEDTIME JOSHUA Administration Protocol Methylprednisolone Sodium Succinate 60 mg 01/17/21 08:30 01/17/21 15:54 Methylprednisolone Sod Succ 125 Mg/2 Ml Inj IVP 60 mg Q8H JOSHUA Administration Montelukast Sodium 10 mg 01/17/21 09:00 01/17/21 08:25 Montelukast Sodium 10 Mg Tablet PO 10 mg DAILY JOSHUA Administration Non-Formulary Medication 20 mg 01/16/21 15:00 01/17/21 14:03 Sildenafil (Pulm.Hypertension) PO Not Given TID JOSHUA Pantoprazole Sodium 40 mg 01/17/21 09:00 01/17/21 08:[address] 40 Mg Tablet PO 40 mg DAILY JOSHUA Administration Potassium Chloride 20 meq 01/17/21 09:00 01/17/21 08:25 Potassium Chloride Er 20 Meq Tablet PO 20 meq DAILY JOSHUA Administration Fluticasone/Salmeterol 1 puff 01/16/21 20:00 01/17/21 07:57 Fluticasone-Salmeterol 250-50 Diskus INHALATION 1 puff BID.RESPIRATORY JOSHUA Administration Sertraline HCl 50 mg 01/17/21 09:00 01/17/21 08:25 Sertraline 50 Mg Tablet PO 50 mg DAILY JOSHUA Administration PFSH Acute PFSH: Medical History COPD (chronic obstructive pulmonary disease) Diabetes mellitus Ex-smoker GERD (gastroesophageal reflux disease) HTN (hypertension) Hyperlipidemia Obstructive sleep apnea Pulmonary artery hypertension Restrictive lung disease Surgical History Hx of cholecystectomy 1996 Hx of elbow surgery Family History Grandfather Heart disease CHF (congestive heart failure) paternal Father CAD (coronary artery disease) Diabetes Mother Cancer ovarian Family/Other Diabetes Social History Smoking and tobacco status: former smoker Quit status (tobacco): has quit using tobacco Year quit tobacco: 2004 Former quit date comment: 2ppd x 25 years Alcohol intake: current Alcohol intake frequency: holidays/special occasions only Vitals/I&O/Wt Last Vital Signs Temp 98.1 F 01/17/21 07:17 Pulse 94 01/17/21 15:36 Resp 20 H 01/17/21 15:31 BP 124/66 01/17/21 12:10 Pulse Ox 92 01/17/21 15:31 01/17/21 01/17/21 01/17/21 06:59 14:59 22:59 Intake Total 350 / 1890 1420 / 1420 Output Total 960 / 2260 1900 / 1900 350 / 2250 Balance -610 / -370 -480 / -480 -350 / -830 Weight last 48 hrs Weight 273 lb Weight 272 lb Physical Exam Narrative: EXAM NARRATIVE: General: alert, elderly male in mild respiratory distress on 10 L nasal cannula HEENT: conj clear, EOMI, PERRL, mmm, Neck: supple, no meningismus Heme: no cervical LAP Pulmonary: CTAB, no wheezing, rhonchi, fine crepitations Cardiovascular: rrr, nl s1s2, no mrg Abdomen: soft, nt, nd, no r/g, bs+ Extremities: pulses +, 1+ pitting pedal edema, no c/c : no CVA tenderness Skin: intact, no rash MSK: no back or neck pain Neurologic: grossly intact Data Labs: Other Labs: Laboratory Results WBC 25.5 10^3/uL (4.0 -10.0) H 01/17/21 06:00 RBC 4.06 10^6/uL (4.1 -5.3) L 01/17/21 06:00 Hgb 11.5 g/dL (11.7-1 6.6) L 01/17/21 06:00 Hct 36.3 % (42.0-52.0 ) L 01/17/21 06:00 MCV 89.4 fl (80-94) 01/17/21 06:00 MCH 28.3 pg (28.0-34. 0) 01/17/21 06:00 MCHC 31.7 g/dL (30.0-3 6.0) 01/17/21 06:00 RDW 15.0 % (12.1-15.1 ) 01/17/21 06:00 Plt Count 288 10^3/cmm (130 -400) 01/17/21 06:00 MPV 9.6 fL (7.4-10.4) 01/17/21 06:00 Neut % (Auto) 85.6 % 01/17/21 06:00 Lymph % (Auto) 4.6 % 01/17/21 06:00 [place]andt % (Auto) 8.5 % 01/17/21 06:00 Eos % (Auto) 0.0 % 01/17/21 06:00 Baso % (Auto) 0.1 % 01/17/21 06:00 Neut # (Auto) 21.79 10^3/uL (1. 8-7.7) H 01/17/21 06:00 Lymph # (Auto) 1.2 10^3/uL (0.8- 4.8) 01/17/21 06:00 [place] # (Auto) 2.2 10^3/uL (0.2- 0.9) H 01/17/21 06:00 Eos # (Auto) 0.0 10^3/uL (0.0- 0.8) 01/17/21 06:00 Baso # (Auto) 0.0 10^3/uL (0.0- 0.1) 01/17/21 06:00 Nucleated RBC % (a uto) 0 % 01/17/21 06:00 Nucleated RBCs # 0.0 /100WBC 01/17/21 06:00 Specimen Type Arterial 01/17/21 18:14 Sample Site Radial, right 01/17/21 18:14 ABG pH 7.45 (7.35-7.45) 01/17/21 18:14 ABG pCO2 29.2 mmHg (35-45) L 01/17/21 18:14 ABG pO2 62.1 mmHg (80.0-1 00.0) L 01/17/21 18:14 ABG HCO3 20.3 mmol/L (22-2 6) L 01/17/21 18:14 ABG O2 Saturation 94.2 01/16/21 07:24 ABG Base Excess -2.7 mmol/L (-2.0 -2.0) L 01/17/21 18:14 Jorden Test Pos 01/17/21 18:14 A-a O2 Gradient 23.1 mmHg (5-10) H 01/16/21 07:24 Hematocrit 39.1 % (42-52) L 01/17/21 18:14 Hgb O2 Saturation 91.4 % (95-100) L 01/16/21 07:24 Carboxyhemoglobin 2.2 %THgb (0.4-20 .1) 01/16/21 07:24 Methemoglobin 0.8 % (0.4-1.5) 01/16/21 07:24 Total Hemoglobin 12.5 g/dL (14-18) L 01/16/21 07:24 Sodium 137.0 mmol/L (131 -143) 01/16/21 07:24 Potassium 4.0 mmol/L (3.5-5 .0) 01/16/21 07:24 Glucose 223.0 mg/dL (70-1 15) H 01/16/21 07:24 Ionized Calcium 1.2 mmol/L (1.1-1 .4) 01/16/21 07:24 O2 Delivery Device Hag 01/17/21 18:14 O2 Liters/Min 50.0 % 01/17/21 18:14 FiO2 61.0 % 01/17/21 18:14 Hospitality Workers ID glc 01/17/21 18:14 Sodium 132 mmol/L (136-1 45) L 01/17/21 06:00 Potassium 4.1 mmol/L (3.5-5 .1) 01/17/21 06:00 Chloride 102 mmol/L (98-10 7) 01/17/21 06:00 Carbon Dioxide 18 mmol/L (22-29) L 01/17/21 06:00 Anion Gap 16.1 (5-19) 01/17/21 06:00 BUN 18 mg/dL (6-20) 01/17/21 06:00 Creatinine 0.6 mg/dL (0.7-1. 2) L 01/17/21 06:00 GFR Calculation 137.9 mL/min (90- 130) H 01/17/21 06:00 Glucose 206 mg/dL (65-115 ) H 01/17/21 06:00 POC Glucose 283 mg/dL (70-110 ) H 01/17/21 17:03 Calculated Osmolal ity 282 mOsm/kg (285- 295) L 01/17/21 06:00 Lactic Acid 3.0 mmol/L (0.5-2 .2) H 01/16/21 07:15 Lactic Acid (Sepsi s) 1.9 mmol/L (0.5-2 .2) 01/16/21 10:17 Calcium 8.7 mg/dL (8.5-10 .5) 01/17/21 06:00 Total Bilirubin 0.5 mg/dL (0.15-1 .2) 01/17/21 06:00 AST 18 U/L (0-40) 01/17/21 06:00 ALT 14 U/L (0-41) 01/17/21 06:00 Alkaline Phosphata se 83 IU/L (40-130) 01/17/21 06:00 Troponin T Baselin e 8 ng/L (0-15) 01/16/21 07:15 Troponin T 120 Min gabbi 7.41 ng/L (0-15) 01/16/21 09:05 Delta Troponin T -0.59 ABS# (0-10) L 01/16/21 09:05 Troponin T Hi Sens 6Hr 6.30 ng/L (0-15) 01/16/21 13:16 Troponin T Hi Sens 6Hr Delta -1.70 ng/L (0-12) L 01/16/21 13:16 NT-Pro-B Natriuret Pep 114 pg/mL (0-125) 01/16/21 07:15 Total Protein 7.1 g/dL (6.6-8.7 ) 01/17/21 06:00 Albumin 3.3 g/dL (3.5-5.2 ) L 01/17/21 06:00 Globulin 3.8 g/dL (1.3-4.6 ) 01/17/21 06:00 Procalcitonin 0.08 ng/mL (0-0.5 ) 01/17/21 06:00 Urine Color Yellow (Yellow) 01/16/21 09:36 Urine Appearance Clear (CLEAR) 01/16/21 09:36 Urine pH 5 (5-7) 01/16/21 09:36 Ur Specific Gravit y 1.015 (1.005-1.0 30) 01/16/21 09:36 Urine Protein Neg (Negative) 01/16/21 09:36 Urine Glucose (UA) Norm (Normal) 01/16/21 09:36 Urine Ketones Negative (Negati ve) 01/16/21 09:36 Urine Blood Neg (Negative) 01/16/21 09:36 Urine Nitrate Negative (Negati ve) 01/16/21 09:36 Urine Bilirubin Neg (Negative) 01/16/21 09:36 Urine Urobilinogen Norm mg/dL (Negat mendel) 01/16/21 09:36 Ur Leukocyte Lillian ase Negative (Negati ve) 01/16/21 09:36 Urine RBC None /hpf (0-2) 01/16/21 09:36 Urine WBC Rare /hpf (0-5) 01/16/21 09:36 Ur Squamous Epith Cells Rare /hpf (0-5) 01/16/21 09:36 Amorphous Sediment Not Reportable 01/16/21 09:36 Urine Bacteria None /hpf (NONE) 01/16/21 09:36 HIV 1&2 Ab & HIV 1 Ag Non-reactive (No n-Reactiv) 01/17/21 06:00 HIV 1&2 Antibody Non-reactive (No n-Reactiv) 01/17/21 06:00 SARS-CoV-2 Ag (Rap id) Negative (Negati ve) 01/17/21 18:45 Impressions Chest X-Ray 01/16/21 07:02 IMPRESSION: No acute changes since 12/29/2020. Progressive interstitial lung disease as above. Enlarged hilar regions which may be due to adenopathy or enlarged pulmonary arteries secondary to pulmonary artery hypertension from the interstitial lung disease. Chest CTA 01/16/21 08:56 IMPRESSION: Interstitial lung disease which by chest x-ray has been progressive since 2014. The groundglass densities are nonspecific and could be related to the chronic interstitial lung disease or could represent an acute process superimposed on chronic lung disease. The differential here is extensive and requires more clinical correlation. One consideration with the symmetric adenopathy would be progressive sarcoidosis. The appearance is not typical for Covid Micro: Micro: Microbiology 01/16/21 11:04 Gram Stain - Final Sputum - Expector ated Sputum Sputum Culture - P reliminary 01/16/21 09:36 MRSA Culture - Fin al Nose 01/16/21 09:36 Bacterial Antigens - Final Urine,Voided A&P Assessment and plan (1) Acute respiratory failure with hypoxemia: Status: Acute (2) Interstitial lung disease: Status: Acute (3) Restrictive lung disease: Status: Acute (4) COPD (chronic obstructive pulmonary disease): Status: Acute Qualifiers: COPD type: unspecified COPD Qualified Code(s): J44.9 - Chronic obstructive pulmonary disease, unspecified (5) Pulmonary artery hypertension: Status: Acute (6) Ex-smoker: Status: Acute (7) Post-COVID syndrome: Status: Acute (8) Obstructive sleep apnea: Status: Acute #Acute hypoxic respiratory failure with hypoxemia-ILD exacerbation/viral pneumonitis #Undiagnosed ILD-NSIP/subacute OR chronic HP/CEP/AIP-progressive since 2013 based on x-rays #COPD in ex-smoker 50 pack year history quit 2004 #Group 3 pulmonary hypertension-ILD + COPD + MICHAEL # covid 19 + ve 11/14/20 2 months ago #MICHAEL on CPAP -Currently on 10 L -saturating 92%-need close monitoring in stepdown/ICU -Yesterday ABG PaO2 68 on 5 L nasal cannula -Progressive ILD based on chest x-rays since 2013; recent CTD panel as out patient negative -CTA-ruled out PE but predominant reticular interstitial changes-there is mosaic pattern air bronchograms distributed in the upper and lower lobes both centrally anteriorly with no recent nodules or masses. There is some evidence of bilateral bronchiectasis in the upper lobes. This CT is not a typical UIP pattern as there is no evidence of bibasilar honeycombing and with the presence of extensive GGO's. 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-difficult to determine underlying cause -We will treat it as ILD exacerbation and so I will schedule for Bronchoscopy for BAL for cell count, cytology and cultures tomorrow depending on his respiratory status. - Once patient recovers from this acute episode, Patient needs surgical lung biopsy for definitive diagnosis as transbronchial biopsy yield is low and can have more complications. -Meanwhile recommended Solu-Medrol 60 every 8 HR - monitor sugars and adjust insulin coverage as patient is diabetic. -So far sputum culture negative bacterial antigens negative, MRSA negative, UA negative -Although patient has no evidence of immunosuppression-received only 10 days p.o. prednisone prior to admission - given the rapidity of O2 requirement - send for PCP PCR, Start on Bactrim, broadened coverage with Vancomyicn and Imipenam; Send for HIV, procalcitonin, respiratory viral panel - Other causes of GGO's on CT chest-underlying cardiac cause -but pt had negative nuclear stress testing on 12/12/2020. BNP 114, Echocardiogram 10/24/2020 did reveal 1/4 diastolic dysfunction, preserved EF, pulmonary hypertension at least moderate -we will repeat Covid antigen, Covid PCR, CV echo and give lasix 40 mg -Continue DuoNeb nebulization every 6 hours scheduled, Singulair 10 mg p.o. daily, -Patient needs close monitoring for respiratory status for possible acute decompensation requiring mechanical intubation At this point of time, patient prognosis remains critical to poor, given his chronic underlying idiopathic interstitial lung disease-worsening respiratory status requiring increasing amounts of oxygen-covered with broad-spectrum antibiotics for any acute bacterial infections and with steroids for ILD exacerbation. Consult Attestations Medical Necessity Statement: Acute hypoxic respiratory failure likely secondary to ILD exacerbation needs close respiratory monitoring Time Spent in Patient Care: Greater than 35 minutes (>than 50% of time spent in counselling and/or direct pt care on unit) . Critical Care Time: Critical Care Time (min): 45 Coding Level of Care Code Acute Mice R[facility] for [facility] F[facility] Diagnoses Acute respiratory failure with hypoxemia J96.01 Interstitial lung disease J84.9 Restrictive lung disease J98.4 COPD (chronic obstructive pulmonary disease) J44.9 COPD type: unspecified COPD Pulmonary artery hypertension I27.21 Ex-smoker Z87.891 Post-COVID syndrome B94.8 Obstructive sleep apnea G47.33
[2021-01-17 17:06] LABS: Glucose Point of Care 283 mg/dL (70-110)
[2021-01-17 18:26] LABS: ABG PCO2 29.2 mmHg (35-45); ABG PH Result 7.45 (7.35-7.45); Arterial Blood Gas Hematocrit 39.1 % (42-52); Base Excess ABG -2.7 mmol/L (-2.0-2.0); Blood Gas Allen Test Pos; Blood Gas Operator Identificat glc; Blood Gas Sample Site Radial, right; Blood Gas Sample Type Arterial; HCO3 ABG 20.3 mmol/L (22-26); Oxygen Device HAG; PO2 ABG 62.1 mmHg (80.0-100.0)
--- NOTE | 2021-01-17 18:35 | PC.NURSE ---
Shift Note Frequent safety and comfort rounds continue. Orders and nursing care completed as indicated. Patient monitored for response to intervention and treatments. New labs ordered, awaiting results. Bactrim and Primaxin started on patient this evening. Pt currently on HHF at 50L with an FiO2 of 60%. Covid rapid and PCR sent this evening. Education provided includes oxygen safety, antibiotic information, and position changing. Patient verbalized understanding. Will continue to monitor.
[2021-01-17 18:39] LABS: Procalcitonin 0.08 ng/mL (0-0.5)
[2021-01-17 19:10] LABS: SARS Covid-2 Antigen Negative (Negative)
[2021-01-17 20:01] LABS: HIV 1 & 2 Antibody Non-Reactive (Non-Reactiv); HIV 1 & 2 Antigen Non-Reactive (Non-Reactiv)
[2021-01-17] MEDS: atorvastatin 40 mg Tablet 20 MG PO (20:49)
[2021-01-17] MEDS: insulin glargine 100 units/1 mL 10 UNIT SUBCUT (20:53)
[2021-01-17 21:24] LABS: Glucose Point of Care 408 mg/dL (70-110)
[2021-01-17 21:24] LABS: Glucose Point of Care 413 mg/dL (70-110)
[2021-01-18] VITALS (50 sets, daily range): BP systolic 100–143; BP diastolic 58–91; PULSE 74–99; RESP 14–43; TEMP 36.5–36.8; O2SAT 88–94
[2021-01-18] MEDS: ipratropium-albuterol 3 mL Neb INHALATION ×6 (00:02→20:58)
[2021-01-18] MEDS: sulfamethoxazole-trimeth inj 480 MG in dextrose 5 % 500 ML 353.33 MG IV ×3 (02:17→17:59)
[2021-01-18 03:56] LABS: Basophils % 0.1 %; Hematocrit 36.2 % (42.0-52.0); Hemoglobin 11.8 g/dL (11.7-16.6); Lymphocytes # 0.9 10^3/uL (0.8-4.8); Mean Corpuscular HGB Conc 32.6 g/dL (30.0-36.0); Mean Corpuscular Hemoglobin 28.4 pg (28.0-34.0); Mean Corpuscular Volume 87.2 fl (80-94); Mean Platelet Volume 9.6 fL (7.4-10.4); Monocytes # 1.4 10^3/uL (0.2-0.9); Monocytes % 6.3 %; Neutrophils # 19.65 10^3/uL (1.8-7.7); Neutrophils % 87.9 %; Nucleated Red Blood Cells % 0 %; Platelet Count 336 10^3/cmm (130-400); Red Blood Count 4.15 10^6/uL (4.1-5.3); Red Cell Distribution Width 14.7 % (12.1-15.1); White Blood Count 22.4 10^3/uL (4.0-10.0)
[2021-01-18 04:23] LABS: Alanine Aminotransferase 12 U/L (0-41); Albumin Level 3.4 g/dL (3.5-5.2); Alkaline Phosphatase 92 IU/L (40-130); Anion Gap 17.2 (5-19); Aspartate Amino Transferase 13 U/L (0-40); Blood Urea Nitrogen 23 mg/dL (6-20); C Reactive Protein 92.5 mg/L (0.0-4.9); Calcium 8.6 mg/dL (8.5-10.5); Carbon Dioxide 20 mmol/L (22-29); Chloride 99 mmol/L (98-107); Creatinine Clr Calc Pharmacy 149.9985; Globulin 3.9 g/dL (1.3-4.6); Glomerular Filtration Rate 115.4 mL/min (90-130); Glucose 308 mg/dL (65-115); Osmolality Calculated 289 mOsm/kg (285-295); Potassium 4.2 mmol/L (3.5-5.1); Sodium 132 mmol/L (136-145); Total Bilirubin 0.4 mg/dL (0.15-1.2); Total Protein 7.3 g/dL (6.6-8.7)
--- NOTE | 2021-01-18 05:07 | PC.NURSE ---
Shift Note Frequent safety and comfort rounds continue. Pt had blood sugar of [address] Montgomery was notified. No changes in orders. Orders and nursing care completed as indicated. Patient monitored for response to intervention and treatment. Education provided includes importance of NPO status before procedure. Patient verbalized understanding. Continue cares.
[2021-01-18] MEDS: HYDROcodone-acetaminophen 10-325 mg Tablet 1 TAB PO ×2 (05:44→17:29)
[2021-01-18 06:06] LABS: ABG PCO2 32.8 mmHg (35-45); ABG PH Result 7.45 (7.35-7.45); Alveolar-Arterial Oxygen Gradi 56.3 mmHg (5-10); Arterial Blood Gas Hematocrit > 62.0 % (42-52); Base Excess ABG -0.3 mmol/L (-2.0-2.0); Blood Gas Allen Test Pos; Blood Gas Operator Identificat JB; Blood Gas Sample Site Radial, right; Blood Gas Sample Type Arterial; Carboxyhemoglobin 0.4 %THgb (0.4-20.1); HCO3 ABG 22.6 mmol/L (22-26); HGB O2 Sat 89.8 % (95-100); Ionized Calcium Level - ABG 1.1 mmol/L (1.1-1.4); Methemoglobin < 0.0 % (0.4-1.5); Oxygen Device HAG; Oxygen Saturation ABG 90.1; PO2 ABG 59.2 mmHg (80.0-100.0); Total Hemoglobin 21.2 g/dL (14-18)
[2021-01-18 06:44] LABS: Glucose Point of Care 307 mg/dL (70-110)
--- NOTE | 2021-01-18 09:27 | PC.CHAP ---
Pastoral Care Encounter/Spiritual Assessment Type of Contact [] Declined placement coordinator visit [] Patient/Family/Request visit [] Outpatient visit [] Follow-up visit [] Physician referral [] Code/Alert [x] Routine visit [] Staff referral [] Actively dying [] Patient sleeping [] Family support [] [] Out of room [] Palliative care [] [] Receiving care in room [] Pre-surgical visit [] Trauma [] Long length of stay [x] ICU visit [] Other: Relational/Emotional Strength [] Patient feels connected with others/family/visitors/staff [] Distress [] Loneliness/isolation [] Abandonment Spirituality of Patient [] Person of Anneliese [] Attends Mosque of their Anneliese [] Believes in Prayer [] Reads Bible or Alevism materials [] There are Spiritual issues to be addressed [employer] Interventions [x] Prayer [] Active listening [] Non-anxious presence [] Spiritual/emotional support [] Crisis/trauma care [] Spiritual counseling [] Bereavement support [] Provided bereavement packet [] Provided Bible/devotional materials [] Provided toy/stuffed animal, coloring book to patient or family member [] Provided Communion [] Anointing/[place] [] Salvation [x] Completed spiritual assessment [] Other: Impact on Illness or Injury [] Angry [] Fearful [] Anxious [] Often cries [] Exhaustion [] Unable to work [] Unable to attend church [] Unable to walk/stand [] Unable to read [] Unable to drive [] Unable to eat/drink [] Unable to sleep [] Unable to be with family [] Patient intubated [] Other: Summary patient in good spirits. Time spent with patient 5 min
--- NOTE | 2021-01-18 09:47 | P.PN_ITS ---
Subjective Subjective: Interval history: Warren reports that he is doing about the same. FiO2 requirement did go up overnight to 70%, 55 L. Patient without any chest discomfort. Bronchoscopy planned this afternoon. He received 2 doses of Lasix yesterday without any significant improvement in FiO2 despite diuresis. Medications: Reviewed: Yes Vitals/I&O/Wt Last Vital Signs Temp 98 F 01/18/21 00:00 Pulse 80 01/18/21 08:35 Resp 22 H 01/18/21 08:35 BP 143/76 01/18/21 06:30 Pulse Ox 92 01/18/21 08:35 01/17/21 01/18/21 01/18/21 22:59 06:59 14:59 Intake Total 1270 / 2690 930 / 3620 Output Total 2050 / 3950 800 / 4750 Balance -780 / -1260 130 / -1130 Physical Exam Narrative: EXAM NARRATIVE: General exam currently on high flow oxygen, conversant Neck is supple no lymphadenopathy or thyromegaly Cardiovascular regular rate and rhythm, no murmur Lungs dry crackles bibasilar Abdomen is soft, positive bowel sounds, obese. No obvious organomegaly Extremities no cyanosis clubbing or edema, cap refill brisk Urinary Catheter Management^: Meza: Cath Placed During This Visit: yes Reason for Continuing Indwelling Catheter: Accurate Measurement of Urinary Output in Critically Ill Patients Urinary Catheter Date of Insertion: 01/18/21 Urinary Catheter Time of Insertion: 00:05 Data : 01/18/21 03:38 01/18/21 03:38 Micro: Microbiology 01/17/21 18:17 Blood Culture - Preliminary Blood SPECIMEN COLLECTED 01/17/21 18:09 Blood Culture - Preliminary Blood SPECIMEN COLLECTED 01/16/21 11:04 Gram Stain - Final Sputum - Expectorated Sputum Sputum Culture - Preliminary A&P Assessment and plan (1) Acute respiratory failure with hypoxemia: Now requiring high flow oxygen Etiology is likely acute pneumonia, superimposed on pulmonary fibrosis. Cannot rule out exacerbation of interstitial lung disease. MRSA PCR negative so vancomycin discontinued Zosyn changed to Primaxin yesterday as no patient improvement was noted Bacterial antigen panel negative Possibility of PCP so Bactrim initiated. Fungitell, PCR for PCP have been sent Await sputum culture which is still pending Received 2 doses of Lasix yesterday without improvement in pulmonary status. PATRICK inhibitor and Norvasc were stopped secondary to lower blood pressures. Continue pulmonary toilet Appreciate pulmonary consultation. Possible bronchoscopy today. Interstitial lung disease appears to predate Covid diagnosis November 13. Status: Acute (2) Pneumonia: See notations above Currently on Bactrim, Primaxin Status: Acute (3) Interstitial lung disease: May have idiopathic pulmonary fibrosis. Further work-up by bronchoscopy planned for today Status: Acute (4) Pulmonary artery hypertension: Continue sildenafil. On further review this was initiated for erectile dysfunction. Echocardiogram demonstrates preserved ejection fraction. Status: Acute (5) Diabetes mellitus: Sliding scale insulin. Increase to aggressive today January 18 Add long-acting insulin at night. Secondary to higher blood sugars increased to 20 units at night. Increase as needed secondary to IV steroid use. Status: Acute Additional A&P Information Multiple other medical problems as outlined in the past medical history Full code Lovenox for DVT prophylaxis Prognosis guarded secondary to continued worsening requiring significant amounts of high flow oxygen. Attestations Medical Necessity Statement*: Need hospital stay for respiratory failure requiring IV antibiotics and further evaluation of interstitial lung disease. Critical Care Time: The high probability of a clinically significant, sudden or life threatening deterioration of the patient's [pulmonary, infectious disease] system(s) required my full and direct attention, intervention and personal management. The critical care time is as shown. This time is in addition to time spent performing any reported procedures but includes the following: [x] Data and vital sign review and interpretation [x] Patient assessment, examination and intervention [x] Documentation [x] Medication orders and management Critical Care Time (min): 31 Coding Level of Care Code Acute Career Counselor for Mateo Small Diagnoses Acute respiratory failure with hypoxemia J96.01 Pneumonia J18.9 Interstitial lung disease J84.9 Pulmonary artery hypertension I27.21 Diabetes mellitus E11.9
[2021-01-18] MEDS: enoxaparin 40 mg/0.4 mL Syringe SUBCUT (11:16)
[2021-01-18 11:29] LABS: Glucose Point of Care 291 mg/dL (70-110)
--- NOTE | 2021-01-18 12:00 | P.PN_ITS ---
Subjective Subjective: Interval history: -Patient seen at bedside multiple times today -Currently is on 55 L 70% HF NC, watching TV not in respiratory distress -He tolerated bronchoscopy with moderate sedation with propofol and LMA -Obtained BAL from the right middle lobe and sent for various studies including wash analysis, Gram stain cultures, fungal cultures, PCP, galactomannan -Other labs and imaging reviewed Medications: Reviewed: Yes Vitals/I&O/Wt Last Vital Signs Temp 98 F 01/18/21 00:00 Pulse 84 01/18/21 11:19 Resp 23 H 01/18/21 11:19 BP 120/76 01/18/21 09:30 Pulse Ox 94 01/18/21 11:19 01/17/21 01/18/21 01/18/21 22:59 06:59 14:59 Intake Total 1270 / 2690 930 / 3620 630 / 630 Output Total 2050 / 3950 800 / 4750 Balance -780 / -1260 130 / -1130 630 / 630 Physical Exam Narrative: EXAM NARRATIVE: General: alert, mild to moderate respiratory distress on high flow nasal cannula HEENT: conj clear, EOMI, PERRL, mmm, Neck: supple, no meningismus Heme: no cervical LAP Pulmonary: CTAB, no wheezing, rhonchi, crackles Cardiovascular: rrr, nl s1s2, no mrg Abdomen: soft, nt, nd, no r/g, bs+ Extremities: pulses +, no edema, no c/c : no CVA tenderness Skin: intact, no rash MSK: no back or neck pain Neurologic: grossly intact Urinary Catheter Management^: Meza: Cath Placed During This Visit: yes Reason for Continuing Indwelling Catheter: Accurate Measurement of Urinary Output in Critically Ill Patients Urinary Catheter Date of Insertion: 01/18/21 Urinary Catheter Time of Insertion: 00:05 Data : 01/18/21 03:38 01/18/21 03:38 Other Labs: Laboratory Results WBC 22.4 10^3/uL (4.0-10.0) H 01/18/21 03:38 RBC 4.15 10^6/uL (4.1-5.3) 01/18/21 03:38 Hgb 11.8 g/dL (11.7-16.6) 01/18/21 03:38 Hct 36.2 % (42.0-52.0) L 01/18/21 03:38 MCV 87.2 fl (80-94) 01/18/21 03:38 MCH 28.4 pg (28.0-34.0) 01/18/21 03:38 MCHC 32.6 g/dL (30.0-36.0) 01/18/21 03:38 RDW 14.7 % (12.1-15.1) 01/18/21 03:38 Plt Count 336 10^3/cmm (130-400) 01/18/21 03:38 MPV 9.6 fL (7.4-10.4) 01/18/21 03:38 Neut % (Auto) 87.9 % 01/18/21 03:38 Lymph % (Auto) 4.0 % 01/18/21 03:38 [place] % (Auto) 6.3 % 01/18/21 03:38 Eos % (Auto) 0.0 % 01/18/21 03:38 Baso % (Auto) 0.1 % 01/18/21 03:38 Neut # (Auto) 19.65 10^3/uL (1.8-7.7) H 01/18/21 03:38 Lymph # (Auto) 0.9 10^3/uL (0.8-4.8) 01/18/21 03:38 [place] # (Auto) 1.4 10^3/uL (0.2-0.9) H 01/18/21 03:38 Eos # (Auto) 0.0 10^3/uL (0.0-0.8) 01/18/21 03:38 Baso # (Auto) 0.0 10^3/uL (0.0-0.1) 01/18/21 03:38 Nucleated RBC % (auto) 0 % 01/18/21 03:38 Nucleated RBCs # 0.0 /100WBC 01/18/21 03:38 Specimen Type Arterial 01/18/21 05:52 Sample Site Radial, right 01/18/21 05:52 ABG pH 7.45 (7.35-7.45) 01/18/21 05:52 ABG pCO2 32.8 mmHg (35-45) L 01/18/21 05:52 ABG pO2 59.2 mmHg (80.0-100.0) L 01/18/21 05:52 ABG HCO3 22.6 mmol/L (22-26) 01/18/21 05:52 ABG O2 Saturation 90.1 01/18/21 05:52 ABG Base Excess -0.3 mmol/L (-2.0-2.0) 01/18/21 05:52 Jorden Test Pos 01/18/21 05:52 A-a O2 Gradient 56.3 mmHg (5-10) H 01/18/21 05:52 Hematocrit > 62.0 % (42-52) H 01/18/21 05:52 Hgb O2 Saturation 89.8 % (95-100) L 01/18/21 05:52 Carboxyhemoglobin 0.4 %THgb (0.4-20.1) 01/18/21 05:52 Methemoglobin < 0.0 % (0.4-1.5) L 01/18/21 05:52 Total Hemoglobin 21.2 g/dL (14-18) H 01/18/21 05:52 Sodium 133.0 mmol/L (131-143) 01/18/21 05:52 Potassium 4.0 mmol/L (3.5-5.0) 01/18/21 05:52 Glucose 275.0 mg/dL (70-115) H 01/18/21 05:52 Ionized Calcium 1.1 mmol/L (1.1-1.4) 01/18/21 05:52 O2 Delivery Device Hag 01/18/21 05:52 O2 Liters/Min 35.0 % 01/18/21 05:52 FiO2 75.0 % 01/18/21 05:52 Cutting Machine Tender Decorative ID Isra 01/18/21 05:52 Sodium 132 mmol/L (136-145) L 01/18/21 03:38 Potassium 4.2 mmol/L (3.5-5.1) 01/18/21 03:38 Chloride 99 mmol/L (98-107) 01/18/21 03:38 Carbon Dioxide 20 mmol/L (22-29) L 01/18/21 03:38 Anion Gap 17.2 (5-19) 01/18/21 03:38 BUN 23 mg/dL (6-20) H 01/18/21 03:38 Creatinine 0.7 mg/dL (0.7-1.2) 01/18/21 03:38 GFR Calculation 115.4 mL/min (90-130) 01/18/21 03:38 Glucose 308 mg/dL (65-115) H 01/18/21 03:38 POC Glucose 291 mg/dL (70-110) H 01/18/21 11:26 Calculated Osmolality 289 mOsm/kg (285-295) 01/18/21 03:38 Lactic Acid 3.0 mmol/L (0.5-2.2) H 01/16/21 07:15 Lactic Acid (Sepsis) 1.9 mmol/L (0.5-2.2) 01/16/21 10:17 Calcium 8.6 mg/dL (8.5-10.5) 01/18/21 03:38 Total Bilirubin 0.4 mg/dL (0.15-1.2) 01/18/21 03:38 AST 13 U/L (0-40) 01/18/21 03:38 ALT 12 U/L (0-41) 01/18/21 03:38 Alkaline Phosphatase 92 IU/L (40-130) 01/18/21 03:38 Troponin T Baseline 8 ng/L (0-15) 01/16/21 07:15 Troponin T 120 Minute 7.41 ng/L (0-15) 01/16/21 09:05 Delta Troponin T -0.59 ABS# (0-10) L 01/16/21 09:05 Troponin T Hi Sens 6Hr 6.30 ng/L (0-15) 01/16/21 13:16 Troponin T Hi Sens 6Hr Delta -1.70 ng/L (0-12) L 01/16/21 13:16 C-Reactive Protein 92.5 mg/L (0.0-4.9) H 01/18/21 03:38 NT-Pro-B Natriuret Pep 114 pg/mL (0-125) 01/16/21 07:15 Total Protein 7.3 g/dL (6.6-8.7) 01/18/21 03:38 Albumin 3.4 g/dL (3.5-5.2) L 01/18/21 03:38 Globulin 3.9 g/dL (1.3-4.6) 01/18/21 03:38 Procalcitonin 0.08 ng/mL (0-0.5) 01/17/21 06:00 Urine Color Yellow (Yellow) 01/16/21 09:36 Urine Appearance Clear (CLEAR) 01/16/21 09:36 Urine pH 5 (5-7) 01/16/21 09:36 Ur Specific Clune 1.015 (1.005-1.030) 01/16/21 09:36 Urine Protein Neg (Negative) 01/16/21 09:36 Urine Glucose (UA) Norm (Normal) 01/16/21 09:36 Urine Ketones Negative (Negative) 01/16/21 09:36 Urine Blood Neg (Negative) 01/16/21 09:36 Urine Nitrate Negative (Negative) 01/16/21 09:36 Urine Bilirubin Neg (Negative) 01/16/21 09:36 Urine Urobilinogen Norm mg/dL (Negative) 01/16/21 09:36 Ur Leukocyte Esterase Negative (Negative) 01/16/21 09:36 Urine RBC None /hpf (0-2) 01/16/21 09:36 Urine WBC Rare /hpf (0-5) 01/16/21 09:36 Ur Squamous Epith Cells Rare /hpf (0-5) 01/16/21 09:36 Amorphous Sediment Not Reportable 01/16/21 09:36 Urine Bacteria None /hpf (NONE) 01/16/21 09:36 HIV 1&2 Ab & HIV 1 Ag Non-reactive (Non-Reactiv) 01/17/21 06:00 HIV 1&2 Antibody Non-reactive (Non-Reactiv) 01/17/21 06:00 SARS-CoV-2 Ag (Rapid) Negative (Negative) 01/17/21 18:45 Beta-(1,3)-D-Glucan TNP 01/16/21 11:04 B-(1,3)-D-Glucan Intrp Not Reportable 01/16/21 11:04 Impressions Chest X-Ray 01/16/21 07:02 IMPRESSION: No acute changes since 12/29/2020. Progressive interstitial lung disease as above. Enlarged hilar regions which may be due to adenopathy or enlarged pulmonary arteries secondary to pulmonary artery hypertension from the interstitial lung disease. Chest CTA 01/16/21 08:56 IMPRESSION: Interstitial lung disease which by chest x-ray has been progressive since 2013. The groundglass densities are nonspecific and could be related to the chronic interstitial lung disease or could represent an acute process superimposed on chronic lung disease. The differential here is extensive and requires more clinical correlation. One consideration with the symmetric adenopathy would be progressive sarcoidosis. The appearance is not typical for Covid Micro: Microbiology 01/16/21 11:04 Gram Stain - Final Sputum - Expectorated Sputum Sputum Culture - Final 01/17/21 18:17 Blood Culture - Preliminary Blood SPECIMEN COLLECTED 01/17/21 18:09 Blood Culture - Preliminary Blood SPECIMEN COLLECTED A&P Assessment and plan (1) Acute respiratory failure with hypoxemia: Status: Acute (2) Interstitial lung disease: Status: Acute (3) Restrictive lung disease: Status: Acute (4) COPD (chronic obstructive pulmonary disease): Status: Acute Qualifiers: COPD type: unspecified COPD Qualified Code(s): J44.9 - Chronic obstructive pulmonary disease, unspecified (5) Pulmonary artery hypertension: Status: Acute (6) Ex-smoker: Status: Acute (7) Post-COVID syndrome: Status: Acute (8) Obstructive sleep apnea: Status: Acute #Acute hypoxic respiratory failure with hypoxemia-ILD exacerbation/viral pneumonitis #Undiagnosed ILD-NSIP/subacute OR chronic HP/CEP/AIP-progressive since 2013 based on x-rays #COPD in ex-smoker 50 pack year history quit 2004 #Group 3 pulmonary hypertension-ILD + COPD + MICHAEL # covid 19 + ve 11/14/20 2 months ago #MICHAEL on CPAP -Currently on 55 L 70%-saturating 92%-need close monitoring in ICU -Gradual worsening of respiratory status and requiring high FiO2-at risk for intubation -ABG 7.4 //20 2/90% on high flow 35 L 75% -Progressive ILD based on chest x-rays since 2013; recent CTD panel as out patient negative -CTA-ruled out PE but predominant reticular interstitial changes-there is mosaic pattern air bronchograms distributed in the upper and lower lobes both centrally anteriorly with no recent nodules or masses. There is some evidence of bilateral bronchiectasis in the upper lobes. This CT is not a typical UIP pattern as there is no evidence of bibasilar honeycombing and with the presence of extensive GGO's. 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- difficult to determine underlying cause -S/p bronchoscopy 01/18/2021 and obtained BAL from [facility] and sent for fluid apolinar lysis,cell count, cytologY, bacterial cultures, fungal cultures, PCP, galactomannan, beta D glucan depending on his respiratory status. - Once patient recovers from this acute episode, Patient needs surgical lung biopsy for definitive diagnosis as transbronchial biopsy yield is low and can have more complications. -We will treat it as ILD exacerbation and recommended Solu-Medrol 60 every 8 HR - monitor sugars and currently on Lantus 20 mg at bedtime and adjust insulin coverage as patient is diabetic. -So far sputum culture negative bacterial antigens negative, MRSA negative, UA negative, HIV negative, procalcitonin 0.08, pending respiratory viral panel -Although patient has no evidence of immunosuppression-received only 10 days p.o. prednisone prior to admission - given the rapidity of O2 requirement and possible PE CAP in immunocompetent patients-started on Bactrim and sent for BAL PCP PCR, broadened coverage with Vancomyicn and Imipenam - Other causes of GGO's on CT chest-underlying cardiac cause -but pt had negative nuclear stress testing on 12/12/2020. BNP 114, Echocardiogram 10/24/2020 did reveal 1/4 diastolic dysfunction, preserved EF, pulmonary hypertension at least moderate -repeat echo 01/17/2021 normal LV size and systolic function with EF 68% and mild LVH. No pericardial effusion. -Patient received Lasix 40 mg 2 doses yesterday and he is net -1500 since admission has good urine output and electrolytes within normal limits. Will hold off Lasix for now and follow-up input output -Continue DuoNeb nebulization every 6 hours scheduled, Singulair 10 mg p.o. daily, -Patient needs close monitoring for respiratory status for possible acute decompensation requiring mechanical intubation At this point of time, patient prognosis remains critical to poor, given his c hronic underlying idiopathic interstitial lung disease-worsening respiratory status requiring increasing amounts of oxygen-covered with broad-spectrum antibiotics for any acute bacterial infections and with steroids for ILD exacerbation. Underwent bronchoscopy 01/18/2021 and BAL from [facility] was sent for studies-results pending. Attestations Medical Necessity Statement*: Need hospital stay for respiratory failure requiring IV antibiotics and further evaluation of interstitial lung disease. Critical Care Time: The high probability of a clinically significant, sudden or life threatening deterioration of the patient's [pulmonary, infectious d isease] system(s) required my full and direct attention, intervention and p ersonal management. The critical care time is as shown. This time is in addition to time spent performing any reported procedures but includes the following: [x] Data and vital sign review and interpretation [x] Patient assessment, examination and intervention [x] Documentation [x] Medication orders and management Critical Care Time (min): 75 Coding Level of Care Code Established Pt Acute Retort Load Expediter for Chg Fwd Patient Type Established History Comprehensive Medical Decision Making High Complexity Diagnoses Acute respiratory failure with hypoxemia J96.01 Interstitial lung disease J84.9 Restrictive lung disease J98.4 COPD (chronic obstructive pulmonary disease) J44.9 COPD type: unspecified COPD Pulmonary artery hypertension I27.21 Ex-smoker Z87.891 Post-COVID syndrome B94.8 Obstructive sleep apnea G47.33 Time Spent (min) 75
--- NOTE | 2021-01-18 13:10 | ANES.PREANE2 ---
Documented by User: Ophelia Caro CRNA 01/18/21 13:17 Pre-Anesthetic Assessment Pre-Anesthetic Assessment: Height/Weight: Height 1.78 m Weight 123.831 kg Temp Pulse Resp BP Pulse Ox 98 F 85 27 H 135/65 90 01/18/21 00:00 01/18/21 12:30 01/18/21 12:30 01/18/21 12:30 01/18/21 12:30 Proposed Procedure: Operation Date: 01/18/21 12:40 Proposed Procedures p Bronchoscopy(Not Applicable) - Jonah Bowles MD s Ebus(Not Applicable) - Jonah HartmannrMD Was Beta Aman taken within 24 hours: N/A (no) Last intake: meal 1800 01/17/21 liquids 0800 01/18/21 Social: Social History: Tobacco Exam: Pre-Anes Outpt Exam: alert and oriented x 3 Airway: Submandibular: WNL Cervical ROM: WNL MP: 2 Dentition: False History/ROS: No significant history except as noted Pulmonary: Pulmonary: COPD, Sleep apnea and URI Comments: pulmonary fibrosis suspected pneumonia, respiratory failure. CV/HEM: CV/HEM: CAD and HTN : : None reported Hepatic: Hepatic: None reported GI: GI: GERD Metabolic: Metabolic: DM, Hyperlipidemia and Morbid obesity Musc/skel: Musc/skel: None reported Anesthetic Plan: ASA status: 4 Anesthesia: General Risk of > 500 ml blood loss (7ml/kg in children): No Meds/Allergies Current Medications: Current Medications Generic Name Dose Route Start Last Admin Trade Name Freq PRN Reason Stop Dose Admin Hydrocodone Bitart /Acetaminophen 1 tab 01/16/21 09:45 01/18/21 05:44 Hydrocodone-Acet aminophen 10-325 M g Tablet PO 1 tab Q6H PRN Administration MODERATE Pain Albuterol/Ipratrop ium 3 ml 01/16/21 12:00 01/18/21 11:19 Ipratropium-Albu terol 3 Ml Neb INHALATION 3 ml Q4H.RESPIRATORY S CH Administration Aspirin 81 mg 01/17/21 09:00 01/18/21 09:04 Aspirin 81 Mg Ec Tablet PO Not Given DAILY JOSHUA Atorvastatin Calci um 20 mg 01/16/21 21:00 01/17/21 20:49 Atorvastatin 40 Mg Tablet PO 20 mg BEDTIME JOSHUA Administration Carvedilol 12.5 mg 01/16/21 21:00 01/18/21 09:05 Carvedilol 12.5 Mg Tablet PO Not Given BID@0900,2100 JOSHUA Enoxaparin Sodium 40 mg 01/16/21 11:00 01/18/21 11:16 Enoxaparin 40 Mg /0.4 Ml Syringe SUBCUT 40 mg Q24H JOSHUA Administration Trimethoprim/Sulfa methoxazole 530 mls @ 353.333 mls/hr 01/17/21 18:00 01/18/21 11:09 480 mg/ Dextrose IV Infused Q8H JOSHUA Infusion Protocol Imipenem/Cilastati n Sodium 500 100 mls @ 200 mls /hr 01/17/21 17:30 01/18/21 11:47 mg/ Sodium Chlor maria a IV Infused Q6H JOSHUA Infusion Protocol Insulin Aspart 0 unit 01/18/21 08:00 01/18/21 11:27 Insulin Aspart 1 00 Unit/1 Ml SUBCUT 12 unit WM&BEDTIME JOSHUA Administration Protocol Methylprednisolone Sodium Succinate 60 mg 01/17/21 08:30 01/18/21 09:06 Methylprednisolo ne Sod Succ 125 Mg /2 Ml Inj IVP 60 mg Q8H JSOHUA Administration Montelukast Sodium 10 mg 01/17/21 09:00 01/18/21 09:05 Montelukast Sodi um 10 Mg Tablet PO Not Given DAILY JOSHUA Non-Formulary Medi cation 20 mg 01/16/21 15:00 01/17/21 14:03 Sildenafil (Pulm .Hypertension) PO Not Given TID JOSHUA Pantoprazole Sodiu m 40 mg 01/17/21 09:00 01/18/21 09:[address] 40 Mg Tablet PO Not Given DAILY JOSHUA Potassium Chloride 10 meq 01/18/21 09:00 01/18/21 09:05 Potassium Chlori de Er 10 Meq Table t PO Not Given DAILY JOSHUA Sertraline HCl 50 mg 01/17/21 09:00 01/18/21 09:05 Sertraline 50 Mg Tablet PO Not Given DAILY JOSHUA PFSH Anesthesia PFSH: Medical History COPD (chronic obstructive pulmonary disease) Diabetes mellitus Ex-smoker GERD (gastroesophageal reflux disease) HTN (hypertension) Hyperlipidemia Obstructive sleep apnea Pulmonary artery hypertension Restrictive lung disease Surgical History Hx of cholecystectomy 1995 Hx of elbow surgery Family History Grandfather Heart disease CHF (congestive heart failure) paternal Father CAD (coronary artery disease) Diabetes Mother Cancer ovarian Family/Other Diabetes Social History Smoking and tobacco status: former smoker Quit status (tobacco): has quit using tobacco Year quit tobacco: 2004 Former quit date comment: 2ppd x 25 years Alcohol intake: current Alcohol intake frequency: holidays/special occasions only Data Anesthesia CBC & Chem 7: 01/18/21 03:38 01/18/21 03:38 Other Labs: Laboratory Results - last 48 hr 01/16/21 01/16/21 01/16/21 11:04 13:16 17:04 WBC RBC Hgb Hct MCV MCH MCHC RDW Plt Count MPV Neut % (Auto) Lymph % (Auto) [place] % (Auto) Eos % (Auto) Baso % (Auto) Neut # (Auto) Lymph # (Auto) [place] # (Auto) Eos # (Auto) Baso # (Auto) Nucleated RBC % (auto) Nucleated RBCs # Specimen Type Sample Site ABG pH ABG pCO2 ABG pO2 ABG HCO3 ABG O2 Saturation ABG Base Excess Jorden Test A-a O2 Gradient Hematocrit Hgb O2 Saturation Carboxyhemoglobin Methemoglobin Total Hemoglobin Ionized Calcium O2 Delivery Device O2 Liters/Min FiO2 Visual Associate ID Sodium Potassium Chloride Carbon Dioxide Anion Gap BUN Creatinine GFR Calculation Glucose POC Glucose 340 H Calculated Osmolality Calcium Total Bilirubin AST ALT Alkaline Phosphatase Troponin T Hi Sens 6Hr 6.30 Troponin T Hi Sens 6Hr Delta -1.70 L C-Reactive Protein Total Protein Albumin Globulin Procalcitonin HIV 1&2 Ab & HIV 1 Ag HIV 1&2 Antibody SARS-CoV-2 Ag (Rapid) Beta-(1,3)-D-Glucan TNP B-(1,3)-D-Glucan Intrp Not Reportable 01/16/21 01/17/21 01/17/21 19:16 06:00 06:00 WBC 25.5 H RBC 4.06 L Hgb 11.5 L Hct 36.3 L MCV 89.4 MCH 28.3 MCHC 31.7 RDW 15.0 Plt Count 288 MPV 9.6 Neut % (Auto) 85.6 Lymph % (Auto) 4.6 [place] % (Auto) 8.5 Eos % (Auto) 0.0 Baso % (Auto) 0.1 Neut # (Auto) 21.79 H Lymph # (Auto) 1.2 [place] # (Auto) 2.2 H Eos # (Auto) 0.0 Baso # (Auto) 0.0 Nucleated RBC % (auto) 0 Nucleated RBCs # 0.0 Specimen Type Sample Site ABG pH ABG pCO2 ABG pO2 ABG HCO3 ABG O2 Saturation ABG Base Excess Jorden Test A-a O2 Gradient Hematocrit Hgb O2 Saturation Carboxyhemoglobin Methemoglobin Total Hemoglobin Ionized Calcium O2 Delivery Device O2 Liters/Min FiO2 Visual Associate ID Sodium 132 L Potassium 4.1 Chloride 102 Carbon Dioxide 18 L Anion Gap 16.1 BUN 18 Creatinine 0.6 L GFR Calculation 137.9 H Glucose 206 H POC Glucose 344 H Calculated Osmolality 282 L Calcium 8.7 Total Bilirubin 0.5 AST 18 ALT 14 Alkaline Phosphatase 83 Troponin T Hi Sens 6Hr Troponin T Hi Sens 6Hr Delta C-Reactive Protein Total Protein 7.1 Albumin 3.3 L Globulin 3.8 Procalcitonin HIV 1&2 Ab & HIV 1 Ag HIV 1&2 Antibody SARS-CoV-2 Ag (Rapid) Beta-(1,3)-D-Glucan B-(1,3)-D-Glucan Intrp 01/17/21 01/17/21 01/17/21 06:00 06:00 06:39 WBC RBC Hgb Hct MCV MCH MCHC RDW Plt Count MPV Neut % (Auto) Lymph % (Auto) [place] % (Auto) Eos % (Auto) Baso % (Auto) Neut # (Auto) Lymph # (Auto) [place] # (Auto) Eos # (Auto) Baso # (Auto) Nucleated RBC % (auto) Nucleated RBCs # Specimen Type Sample Site ABG pH ABG pCO2 ABG pO2 ABG HCO3 ABG O2 Saturation ABG Base Excess Jorden Test A-a O2 Gradient Hematocrit Hgb O2 Saturation Carboxyhemoglobin Methemoglobin Total Hemoglobin Ionized Calcium O2 Delivery Device O2 Liters/Min FiO2 Visual Associate ID Sodium Potassium Chloride Carbon Dioxide Anion Gap BUN Creatinine GFR Calculation Glucose POC Glucose 206 H Calculated Osmolality Calcium Total Bilirubin AST ALT Alkaline Phosphatase Troponin T Hi Sens 6Hr Troponin T Hi Sens 6Hr Delta C-Reactive Protein Total Protein Albumin Globulin Procalcitonin 0.08 HIV 1&2 Ab & HIV 1 Ag Non-reactive HIV 1&2 Antibody Non-reactive SARS-CoV-2 Ag (Rapid) Beta-(1,3)-D-Glucan B-(1,3)-D-Glucan Intrp 01/17/21 01/17/21 01/17/21 11:13 17:03 18:14 WBC RBC Hgb Hct MCV MCH MCHC RDW Plt Count MPV Neut % (Auto) Lymph % (Auto) [place] % (Auto) Eos % (Auto) Baso % (Auto) Neut # (Auto) Lymph # (Auto) [place] # (Auto) Eos # (Auto) Baso # (Auto) Nucleated RBC % (auto) Nucleated RBCs # Specimen Type Arterial Sample Site Radial, right ABG pH 7.45 ABG pCO2 29.2 L ABG pO2 62.1 L ABG HCO3 20.3 L ABG O2 Saturation ABG Base Excess -2.7 L Jorden Test Pos A-a O2 Gradient Hematocrit 39.1 L Hgb O2 Saturation Carboxyhemoglobin Methemoglobin Total Hemoglobin Ionized Calcium O2 Delivery Device Hag O2 Liters/Min 50.0 FiO2 61.0 Visual Associate ID glc Sodium Potassium Chloride Carbon Dioxide Anion Gap BUN Creatinine GFR Calculation Glucose POC Glucose 377 H 283 H Calculated Osmolality Calcium Total Bilirubin AST ALT Alkaline Phosphatase Troponin T Hi Sens 6Hr Troponin T Hi Sens 6Hr Delta C-Reactive Protein Total Protein Albumin Globulin Procalcitonin HIV 1&2 Ab & HIV 1 Ag HIV 1&2 Antibody SARS-CoV-2 Ag (Rapid) Beta-(1,3)-D-Glucan B-(1,3)-D-Glucan Intrp 01/17/21 01/17/21 01/17/21 18:45 20:13 20:57 WBC RBC Hgb Hct MCV MCH MCHC RDW Plt Count MPV Neut % (Auto) Lymph % (Auto) [place] % (Auto) Eos % (Auto) Baso % (Auto) Neut # (Auto) Lymph # (Auto) [place] # (Auto) Eos # (Auto) Baso # (Auto) Nucleated RBC % (auto) Nucleated RBCs # Specimen Type Sample Site ABG pH ABG pCO2 ABG pO2 ABG HCO3 ABG O2 Saturation ABG Base Excess Jorden Test A-a O2 Gradient Hematocrit Hgb O2 Saturation Carboxyhemoglobin Methemoglobin Total Hemoglobin Ionized Calcium O2 Delivery Device O2 Liters/Min FiO2 Visual Associate ID Sodium Potassium Chloride Carbon Dioxide Anion Gap BUN Creatinine GFR Calculation Glucose POC Glucose 413 H 408 H Calculated Osmolality Calcium Total Bilirubin AST ALT Alkaline Phosphatase Troponin T Hi Sens 6Hr Troponin T Hi Sens 6Hr Delta C-Reactive Protein Total Protein Albumin Globulin Procalcitonin HIV 1&2 Ab & HIV 1 Ag HIV 1&2 Antibody SARS-CoV-2 Ag (Rapid) Negative Beta-(1,3)-D-Glucan B-(1,3)-D-Glucan Intrp 01/18/21 01/18/21 01/18/21 03:38 03:38 05:52 WBC 22.4 H RBC 4.15 Hgb 11.8 Hct 36.2 L MCV 87.2 MCH 28.4 MCHC 32.6 RDW 14.7 Plt Count 336 MPV 9.6 Neut % (Auto) 87.9 Lymph % (Auto) 4.0 [place] % (Auto) 6.3 Eos % (Auto) 0.0 Baso % (Auto) 0.1 Neut # (Auto) 19.65 H Lymph # (Auto) 0.9 [place] # (Auto) 1.4 H Eos # (Auto) 0.0 Baso # (Auto) 0.0 Nucleated RBC % (auto) 0 Nucleated RBCs # 0.0 Specimen Type Arterial Sample Site Radial, right ABG pH 7.45 ABG pCO2 32.8 L ABG pO2 59.2 L ABG HCO3 22.6 ABG O2 Saturation 90.1 ABG Base Excess -0.3 Jorden Test Pos A-a O2 Gradient 56.3 H Hematocrit > 62.0 H Hgb O2 Saturation 89.8 L Carboxyhemoglobin 0.4 Methemoglobin < 0.0 L Total Hemoglobin 21.2 H Ionized Calcium 1.1 O2 Delivery Device Hag O2 Liters/Min 35.0 FiO2 75.0 Visual Associate ID Isra Sodium 132 L 133.0 Potassium 4.2 4.0 Chloride 99 Carbon Dioxide 20 L Anion Gap 17.2 BUN 23 H Creatinine 0.7 GFR Calculation 115.4 Glucose 308 H 275.0 H POC Glucose Calculated Osmolality 289 Calcium 8.6 Total Bilirubin 0.4 AST 13 ALT 12 Alkaline Phosphatase 92 Troponin T Hi Sens 6Hr Troponin T Hi Sens 6Hr Delta C-Reactive Protein 92.5 H Total Protein 7.3 Albumin 3.4 L Globulin 3.9 Procalcitonin HIV 1&2 Ab & HIV 1 Ag HIV 1&2 Antibody SARS-CoV-2 Ag (Rapid) Beta-(1,3)-D-Glucan B-(1,3)-D-Glucan Intrp 01/18/21 01/18/21 06:40 11:26 WBC RBC Hgb Hct MCV MCH MCHC RDW Plt Count MPV Neut % (Auto) Lymph % (Auto) [place] % (Auto) Eos % (Auto) Baso % (Auto) Neut # (Auto) Lymph # (Auto) [place] # (Auto) Eos # (Auto) Baso # (Auto) Nucleated RBC % (auto) Nucleated RBCs # Specimen Type Sample Site ABG pH ABG pCO2 ABG pO2 ABG HCO3 ABG O2 Saturation ABG Base Excess Jorden Test A-a O2 Gradient Hematocrit Hgb O2 Saturation Carboxyhemoglobin Methemoglobin Total Hemoglobin Ionized Calcium O2 Delivery Device O2 Liters/Min FiO2 Visual Associate ID Sodium Potassium Chloride Carbon Dioxide Anion Gap BUN Creatinine GFR Calculation Glucose POC Glucose 307 H 291 H Calculated Osmolality Calcium Total Bilirubin AST ALT Alkaline Phosphatase Troponin T Hi Sens 6Hr Troponin T Hi Sens 6Hr Delta C-Reactive Protein Total Protein Albumin Globulin Procalcitonin HIV 1&2 Ab & HIV 1 Ag HIV 1&2 Antibody SARS-CoV-2 Ag (Rapid) Beta-(1,3)-D-Glucan B-(1,3)-D-Glucan Intrp Micro: Microbiology 01/16/21 11:04 Gram Stain - Final Sputum - Expectorated Sputum Sputum Culture - Final 01/17/21 18:17 Blood Culture - Preliminary Blood SPECIMEN COLLECTED 01/17/21 18:09 Blood Culture - Preliminary Blood SPECIMEN COLLECTED Cardiac Studies: Echocardiogram 10/24/20 Documented by User: Carlos Salamanca 01/18/21 15:22 PFSH Anesthesia PFSH: Medical History COPD (chronic obstructive pulmonary disease) Diabetes mellitus Ex-smoker GERD (gastroesophageal reflux disease) HTN (hypertension) Hyperlipidemia Obstructive sleep apnea Pulmonary artery hypertension Restrictive lung disease Surgical History Hx of cholecystectomy 1996 Hx of elbow surgery Family History Grandfather Heart disease CHF (congestive heart failure) paternal Father CAD (coronary artery disease) Diabetes Mother Cancer ovarian Family/Other Diabetes Social History Smoking and tobacco status: former smoker Quit status (tobacco): has quit using tobacco Year quit tobacco: 2004 Former quit date comment: 2ppd x 25 years Alcohol intake: current Alcohol intake frequency: holidays/special occasions only Data Anesthesia CBC & Chem 7: 01/18/21 03:38 01/18/21 03:38 Cardiac Studies: Echocardiogram 10/24/20
--- NOTE | 2021-01-18 13:39 | PC.NURSE ---
GI staff and Respiratory transferred patient to GI lab by bed. Brother accompanied to GI waiting room by this nurse, Datar notified.
[2021-01-18] MEDS: lidocaine 1% INJ 20 mL XX (13:55)
--- NOTE | 2021-01-18 15:22 | ANE.PACU2 ---
Inpatient post-anesthesia follow up: Airway intact: Yes Vital signs: Temperature 98 F Pulse Rate [Monito r] 95 Pulse Rate [Therap y Changed] 90 Pulse Rate [Curren t] 83 Pulse Rate 85 Respiratory Rate [ Therapy 26 Changed] Respiratory Rate [ Current] 23 Respiratory Rate 27 Blood Pressure [Ri ght Arm] 98/61 Blood Pressure 135/65 Pulse Oximetry [Th erapy 88 Changed] Pulse Oximetry [Cu rrent] 90 Pulse Oximetry 90 Oxygen Delivery Me thod Heated High Flow Oxygen Flow Rate [ Therapy 55 Changed] Oxygen Flow Rate [ Current] 55 Oxygen Flow Rate 55 Fraction of Inspir ed Oxygen [ 70 Therapy Changed] Fraction of Inspir ed Oxygen [ 70 Current] Fraction of Inspir ed Oxygen 70 Hydration adequate: Yes Nausea and vomiting: No Pain level: 2 Mental status: Baseline
--- NOTE | 2021-01-18 16:04 | PM.OP ---
Operative Report Date of procedure: January 18, 2021 Procedure: Flexible bronchoscopy with airway inspection Pre-Operative Diagnosis: Possible superimposing pneumonia to interstitial lung disease Post-Operative Diagnosis: Same Indication: Worsening hypoxia requiring high flow nasal cannula 55 L and 70% FiO2 patient with underlying interstitial lung disease with groundglass opacities on CT chest Anesthesia: Conscious sedation with propofol by anesthesia team Pre-procedure Evaluation: Patient was evaluated clinically and ancillary testing reviewed. The risk of having active MTB infection is very low in my clinical judgement. ASA: 4 Malampati score: Grade 1 Consent: Consents were obtained from patient and placed in the chart. Procedure Details: Time out was performed by the procedure team and nursing staff. Vent support maintained on Fio2 100. The bronchoscope was introduced through bite elias. A bronchoscopic airway exam was performed to evaluate the visible tracheobronchial tree to the segmental level. Summary of Significant Findings: -Bronchoscope passed through bite elias and grade 1 view of glottis obtained. Vocal cords appeared normal and mobile. 1% lidocaine 3 mL instilled. The scope was passed through vocal cords to visualize trachea which was noted to be normal. 1% lidocaine 2 mL instilled. Main mayelin visualized which was sharp and normal. 1% lidocaine 3 mL instilled in both mainstem bronchi. Then the scope was passed through the right bronchial tree was assessed to include the right mainstem bronchus, RBI, and RUL/RML/RLL bronchi to the segmental and subsegmental levels. No active bleeding noted. Mucosa appeared normal. Clear secretions noted which were suctioned right away. Bronchoscope Then the scope was left bronchial tree was assessed to include the left mainstem bronchus, left upper lobe, lingula and LLL bronchi to the segmental and subsegmental level. Normal mucosa. No active bleeding noted.No evidence of bronchomalacia in left lower lobe. Noted some degree of dynamic airway compression (< 50%) on suction. Bronchoscope was positioned in right middle lobe and after achieving appropriate wedge 60 mL normal saline instilled and obtained BAL and sent for various studies including bacterial Gram stain cultures, ADIA smear and fungal cultures, PCP PCR, beta D glucan, galactomannan, wash analysis. The bronchoscope was then removed and the procedure terminated. Estimated Blood Loss: None Specimens: None sent Complications:None; patient tolerated the procedure well. Disposition: Patient remains hemodynamically stable and sent back to ICU on high flow nasal cannula 55 L 70% Patient tolerated the procedure well. Jonah Bowles MD Pulmonary critical Care Medicine [facility] Associated Problem List Diagnoses (1) Acute respiratory failure with hypoxemia: (2) Interstitial lung disease: (3) Pneumonia: (4) COPD (chronic obstructive pulmonary disease): Qualifiers: COPD type: unspecified COPD Qualified Code(s): J44.9 - Chronic obstructive pulmonary disease, unspecified (5) Post-COVID syndrome:
[2021-01-18] MEDS: baclofen 10 mg Tablet 20 MG PO (17:13)
[2021-01-18 17:28] LABS: Glucose Point of Care 224 mg/dL (70-110)
--- NOTE | 2021-01-18 17:57 | PC.NURSE ---
Shift Note Frequent safety and comfort rounds continue. Orders and nursing care completed as indicated. Patient monitored for response to intervention and treatments. Pt had procedure with Dr. Bowles this afternoon, see reports. Pt family called and visited this afternoon, verbalized understanding. Pt still on HHF at 55L with FiO2 of 70 %. Diet resumed this evening. Education provided on current antibiotics, breathing techiques, and oxygen safety. Patient verbalized understanding. Will continue to monitor.
[2021-01-18 18:06] LABS: Apprearance, Bronch Wash Bloody (CLEAR); Color, Bronc Wash Red
[2021-01-18] MEDS: atorvastatin 40 mg Tablet 20 MG PO (20:43)
[2021-01-18] MEDS: insulin glargine 100 units/1 mL 20 UNIT SUBCUT (20:44)
[2021-01-18 21:17] LABS: Glucose Point of Care 353 mg/dL (70-110)
[2021-01-18 23:42] LABS: Bronch Source Right Middle Lobe
[2021-01-19] VITALS (53 sets, daily range): BP systolic 102–152; BP diastolic 66–96; PULSE 71–112; RESP 18–38; TEMP 36.5–37.1; O2SAT 82–97
[2021-01-19] MEDS: ipratropium-albuterol 3 mL Neb INHALATION ×6 (00:02→23:50)
[2021-01-19] MEDS: sulfamethoxazole-trimeth inj 480 MG in dextrose 5 % 500 ML 353.33 MG IV (02:02)
[2021-01-19 03:49] LABS: Coronavirus Test Green County Not Detected
[2021-01-19 05:32] LABS: Basophils % 0.1 %; Hematocrit 36.5 % (42.0-52.0); Hemoglobin 11.9 g/dL (11.7-16.6); Lymphocytes # 1.1 10^3/uL (0.8-4.8); Lymphocytes % 5.3 %; Mean Corpuscular HGB Conc 32.6 g/dL (30.0-36.0); Mean Corpuscular Hemoglobin 28.7 pg (28.0-34.0); Mean Corpuscular Volume 88.2 fl (80-94); Mean Platelet Volume 9.9 fL (7.4-10.4); Monocytes # 1.6 10^3/uL (0.2-0.9); Monocytes % 7.9 %; Neutrophils # 17.32 10^3/uL (1.8-7.7); Neutrophils % 85.6 %; Nucleated Red Blood Cells % 0 %; Platelet Count 351 10^3/cmm (130-400); Red Blood Count 4.14 10^6/uL (4.1-5.3); Red Cell Distribution Width 14.9 % (12.1-15.1); White Blood Count 20.2 10^3/uL (4.0-10.0)
[2021-01-19 05:53] LABS: Anion Gap 17.1 (5-19); Blood Urea Nitrogen 20 mg/dL (6-20); Calcium 8.8 mg/dL (8.5-10.5); Carbon Dioxide 23 mmol/L (22-29); Chloride 96 mmol/L (98-107); Glomerular Filtration Rate 137.9 mL/min (90-130); Glucose 287 mg/dL (65-115); Osmolality Calculated 285 mOsm/kg (285-295); Potassium 5.1 mmol/L (3.5-5.1); Sodium 131 mmol/L (136-145)
--- NOTE | 2021-01-19 06:19 | PC.NURSE ---
Shift Note Frequent safety and comfort rounds continue. Orders and nursing care completed as indicated. Patient monitored for response to intervention and treatment. Education provided includes insulin dose change. Patient verbalized understanding. Will continue care.
--- NOTE | 2021-01-19 08:18 | XR_ITS ---
WS: [id number] XR chest 1V portable [id number] REASON FOR EXAM: pneumonia FINDINGS: Diffuse bilateral reticular nodular and groundglass lung opacities. Small area of increased density w ithin the peripheral infiltrate in the mid left lung. Otherwise the examination is unchanged. No new abnormality is identified. XR/XR chest 1V portable [id number] IMPRESSION: Relatively stable bilateral pulmonary infiltrates.
[2021-01-19 08:23] LABS: Glucose Point of Care 277 mg/dL (70-110)
[2021-01-19] MEDS: montelukast sodium 10 mg Tablet PO (08:38)
[2021-01-19] MEDS: pantoprazole DR 40 mg Tablet PO (08:38)
[2021-01-19] MEDS: sertraline 50 mg Tablet PO (08:38)
[2021-01-19] MEDS: aspirin 81 mg EC Tablet PO (08:38)
[2021-01-19] MEDS: baclofen 10 mg Tablet 20 MG PO ×2 (08:38→17:15)
[2021-01-19] MEDS: HYDROcodone-acetaminophen 10-325 mg Tablet 1 TAB PO ×2 (08:44→20:34)
--- NOTE | 2021-01-19 09:03 | PC.CHAP ---
Pastoral Care Encounter/Spiritual Assessment Type of Contact [] Declined teacher of the handicapped visit [] Patient/Family/Request visit [] Outpatient visit [] Follow-up visit [] Physician referral [] Code/Alert [x] Routine visit [] Staff referral [] Actively dying [] Patient sleeping [] Family support [] [] Out of room [] Palliative care [] [x] Receiving care in room [] Pre-surgical visit [] Trauma [] Long length of stay [x] ICU visit [x] Other: 2 doctors present with patient Relational/Emotional Strength [] Patient feels connected with others/family/visitors/staff [] Distress [] Loneliness/isolation [] Abandonment Spirituality of Patient [] Person of Anneliese [] Attends [employer] of their Anneliese [] Believes in Prayer [] Reads Bible or Voodoo materials [] There are Spiritual issues to be addressed Station Engineer Interventions [x] Prayer [] Active listening [] Non-anxious presence [] Spiritual/emotional support [] Crisis/trauma care [] Spiritual counseling [] Bereavement support [] Provided bereavement packet [] Provided Bible/devotional materials [] Provided toy/stuffed animal, coloring book to patient or family member [] Provided Communion [] Anointing/[place] [] Salvation [x] Completed spiritual assessment [] Other: Impact on Illness or Injury [] Angry [] Fearful [] Anxious [] Often cries [] Exhaustion [] Unable to work [] Unable to attend gnosticist [] Unable to walk/stand [] Unable to read [] Unable to drive [] Unable to eat/drink [] Unable to sleep [] Unable to be with family [] Patient intubated [] Other: Summary Time spent with patient
--- NOTE | 2021-01-19 09:23 | PC.NURSE ---
Nurse assisted patient up to a chair for breakfast. Patient desaturated from 90% to 79% with the movement. took about 10 minutes to fully recover while sitting in a chair.
[2021-01-19] MEDS: insulin glargine 100 units/1 mL 15 UNIT SUBCUT ×2 (10:04→20:20)
[2021-01-19] MEDS: enoxaparin 40 mg/0.4 mL Syringe SUBCUT (10:23)
--- NOTE | 2021-01-19 10:46 | P.PN_ITS ---
Subjective Subjective: Interval history: -Patient seen at bedside today -Currently on HFNC 55 L and 75% -Placed out of bed to chair -Reported subjective improvement in his breathing after bronchoscopy -Covid PCR negative-off isolation -Labs and imaging reviewed Medications: Reviewed: Yes Vitals/I&O/Wt Last Vital Signs Temp 97.8 F 01/19/21 08:00 Pulse 80 01/19/21 10:11 Resp 22 H 01/19/21 10:11 BP 138/90 01/19/21 09:00 Pulse Ox 93 01/19/21 10:11 01/18/21 01/19/21 01/19/21 22:59 06:59 14:59 Intake Total 1110 / 1740 1570 / 3310 Output Total 1300 / 1300 2050 / 3350 550 / 550 Balance -190 / 440 -480 / -40 -550 / -550 Physical Exam Narrative: EXAM NARRATIVE: General: alert, mild to moderate respiratory distress on high flow nasal cannula HEENT: conj clear, EOMI, PERRL, mmm, Neck: supple, no meningismus Heme: no cervical LAP Pulmonary: CTAB, no wheezing, rhonchi, crackles Cardiovascular: rrr, nl s1s2, no mrg Abdomen: soft, nt, nd, no r/g, bs+ Extremities: pulses +, no edema, no c/c : no CVA tenderness Skin: intact, no rash MSK: no back or neck pain Neurologic: grossly intact Urinary Catheter Management^: Meza: Cath Placed During This Visit: yes Reason for Continuing Indwelling Catheter: Accurate Measurement of Urinary Output in Critically Ill Patients Urinary Catheter Date of Insertion: 01/18/21 Urinary Catheter Time of Insertion: 00:05 Data : 01/19/21 04:43 01/19/21 04:43 Other Labs: Laboratory Results WBC 20.2 10^3/uL (4.0-10.0) H 01/19/21 04:43 RBC 4.14 10^6/uL (4.1-5.3) 01/19/21 04:43 Hgb 11.9 g/dL (11.7-16.6) 01/19/21 04:43 Hct 36.5 % (42.0-52.0) L 01/19/21 04:43 MCV 88.2 fl (80-94) 01/19/21 04:43 MCH 28.7 pg (28.0-34.0) 01/19/21 04:43 MCHC 32.6 g/dL (30.0-36.0) 01/19/21 04:43 RDW 14.9 % (12.1-15.1) 01/19/21 04:43 Plt Count 351 10^3/cmm (130-400) 01/19/21 04:43 MPV 9.9 fL (7.4-10.4) 01/19/21 04:43 Neut % (Auto) 85.6 % 01/19/21 04:43 Lymph % (Auto) 5.3 % 01/19/21 04:43 [place] % (Auto) 7.9 % 01/19/21 04:43 Eos % (Auto) 0.0 % 01/19/21 04:43 Baso % (Auto) 0.1 % 01/19/21 04:43 Neut # (Auto) 17.32 10^3/uL (1.8-7.7) H 01/19/21 04:43 Lymph # (Auto) 1.1 10^3/uL (0.8-4.8) 01/19/21 04:43 [place] # (Auto) 1.6 10^3/uL (0.2-0.9) H 01/19/21 04:43 Eos # (Auto) 0.0 10^3/uL (0.0-0.8) 01/19/21 04:43 Baso # (Auto) 0.0 10^3/uL (0.0-0.1) 01/19/21 04:43 Nucleated RBC % (auto) 0 % 01/19/21 04:43 Nucleated RBCs # 0.0 /100WBC 01/19/21 04:43 Specimen Type Arterial 01/18/21 05:52 Sample Site Radial, right 01/18/21 05:52 ABG pH 7.45 (7.35-7.45) 01/18/21 05:52 ABG pCO2 32.8 mmHg (35-45) L 01/18/21 05:52 ABG pO2 59.2 mmHg (80.0-100.0) L 01/18/21 05:52 ABG HCO3 22.6 mmol/L (22-26) 01/18/21 05:52 ABG O2 Saturation 90.1 01/18/21 05:52 ABG Base Excess -0.3 mmol/L (-2.0-2.0) 01/18/21 05:52 Jorden Test Pos 01/18/21 05:52 A-a O2 Gradient 56.3 mmHg (5-10) H 01/18/21 05:52 Hematocrit > 62.0 % (42-52) H 01/18/21 05:52 Hgb O2 Saturation 89.8 % (95-100) L 01/18/21 05:52 Carboxyhemoglobin 0.4 %THgb (0.4-20.1) 01/18/21 05:52 Methemoglobin < 0.0 % (0.4-1.5) L 01/18/21 05:52 Total Hemoglobin 21.2 g/dL (14-18) H 01/18/21 05:52 Sodium 133.0 mmol/L (131-143) 01/18/21 05:52 Potassium 4.0 mmol/L (3.5-5.0) 01/18/21 05:52 Glucose 275.0 mg/dL (70-115) H 01/18/21 05:52 Ionized Calcium 1.1 mmol/L (1.1-1.4) 01/18/21 05:52 O2 Delivery Device Hag 01/18/21 05:52 O2 Liters/Min 35.0 % 01/18/21 05:52 FiO2 75.0 % 01/18/21 05:52 Fitting Room Associate ID Isra 01/18/21 05:52 Sodium 131 mmol/L (136-145) L 01/19/21 04:43 Potassium 5.1 mmol/L (3.5-5.1) 01/19/21 04:43 Chloride 96 mmol/L (98-107) L 01/19/21 04:43 Carbon Dioxide 23 mmol/L (22-29) 01/19/21 04:43 Anion Gap 17.1 (5-19) 01/19/21 04:43 BUN 20 mg/dL (6-20) 01/19/21 04:43 Creatinine 0.6 mg/dL (0.7-1.2) L 01/19/21 04:43 GFR Calculation 137.9 mL/min (90-130) H 01/19/21 04:43 Glucose 287 mg/dL (65-115) H 01/19/21 04:43 POC Glucose 277 mg/dL (70-110) H 01/19/21 08:11 Calculated Osmolality 285 mOsm/kg (285-295) 01/19/21 04:43 Lactic Acid 3.0 mmol/L (0.5-2.2) H 01/16/21 07:15 Lactic Acid (Sepsis) 1.9 mmol/L (0.5-2.2) 01/16/21 10:17 Calcium 8.8 mg/dL (8.5-10.5) 01/19/21 04:43 Total Bilirubin 0.4 mg/dL (0.15-1.2) 01/18/21 03:38 AST 13 U/L (0-40) 01/18/21 03:38 ALT 12 U/L (0-41) 01/18/21 03:38 Alkaline Phosphatase 92 IU/L (40-130) 01/18/21 03:38 Troponin T Baseline 8 ng/L (0-15) 01/16/21 07:15 Troponin T 120 Minute 7.41 ng/L (0-15) 01/16/21 09:05 Delta Troponin T -0.59 ABS# (0-10) L 01/16/21 09:05 Troponin T Hi Sens 6Hr 6.30 ng/L (0-15) 01/16/21 13:16 Troponin T Hi Sens 6Hr Delta -1.70 ng/L (0-12) L 01/16/21 13:16 C-Reactive Protein 92.5 mg/L (0.0-4.9) H 01/18/21 03:38 NT-Pro-B Natriuret Pep 114 pg/mL (0-125) 01/16/21 07:15 Total Protein 7.3 g/dL (6.6-8.7) 01/18/21 03:38 Albumin 3.4 g/dL (3.5-5.2) L 01/18/21 03:38 Globulin 3.9 g/dL (1.3-4.6) 01/18/21 03:38 Procalcitonin 0.08 ng/mL (0-0.5) 01/17/21 06:00 Urine Color Yellow (Yellow) 01/16/21 09:36 Urine Appearance Clear (CLEAR) 01/16/21 09:36 Urine pH 5 (5-7) 01/16/21 09:36 Ur Specific Ferris 1.015 (1.005-1.030) 01/16/21 09:36 Urine Protein Neg (Negative) 01/16/21 09:36 Urine Glucose (UA) Norm (Normal) 01/16/21 09:36 Urine Ketones Negative (Negative) 01/16/21 09:36 Urine Blood Neg (Negative) 01/16/21 09:36 Urine Nitrate Negative (Negative) 01/16/21 09:36 Urine Bilirubin Neg (Negative) 01/16/21 09:36 Urine Urobilinogen Norm mg/dL (Negative) 01/16/21 09:36 Ur Leukocyte Esterase Negative (Negative) 01/16/21 09:36 Urine RBC None /hpf (0-2) 01/16/21 09:36 Urine WBC Rare /hpf (0-5) 01/16/21 09:36 Ur Squamous Epith Cells Rare /hpf (0-5) 01/16/21 09:36 Amorphous Sediment Not Reportable 01/16/21 09:36 Urine Bacteria None /hpf (NONE) 01/16/21 09:36 Bronch Specimen Source Right middle lobe 01/18/21 13:57 Bronchial Fluid Color Red 01/18/21 13:57 Bronchial Fluid Appearance Bloody (CLEAR) 01/18/21 13:57 Bronchial Fluid WBC 10 /uL 01/18/21 13:57 Bronchial Fluid RBC 0 10^3/uL 01/18/21 13:57 Bronch Cells Counted TNP 01/18/21 13:57 Nasal/Oral COVID-19 PCR Not detected 01/17/21 17:45 HIV 1&2 Ab & HIV 1 Ag Non-reactive (Non-Reactiv) 01/17/21 06:00 HIV 1&2 Antibody Non-reactive (Non-Reactiv) 01/17/21 06:00 SARS-CoV-2 Ag (Rapid) Negative (Negative) 01/17/21 18:45 Beta-(1,3)-D-Glucan TNP 01/16/21 11:04 B-(1,3)-D-Glucan Intrp Not Reportable 01/16/21 11:04 Impressions Chest CTA 01/16/21 08:56 IMPRESSION: Interstitial lung disease which by chest x-ray has been progressive since 2014. The groundglass densities are nonspecific and could be related to the chronic interstitial lung disease or could represent an acute process superimposed on chronic lung disease. The differential here is extensive and requires more clinical correlation. One consideration with the symmetric adenopathy would be progressive sarcoidosis. The appearance is not typical for Covid Chest X-Ray 01/19/21 08:18 IMPRESSION: Relatively stable bilateral pulmonary infiltrates. Micro: Microbiology 01/19/21 10:25 Legionella Urinary Antigen - Final Urine Catheterized 01/18/21 13:57 Gram Stain - Final Lung Right Middle Lobe 01/17/21 18:17 Blood Culture - Preliminary Blood NEGATIVE TO DATE 01/17/21 18:09 Blood Culture - Preliminary Blood NEGATIVE TO DATE 01/18/21 13:57 ADIA Preparation - Final Other Source 01/16/21 11:04 Gram Stain - Final Sputum - Expectorated Sputum Sputum Culture - Final A&P Assessment and plan (1) Acute respiratory failure with hypoxemia: Status: Acute (2) Interstitial lung disease: Status: Acute (3) Restrictive lung disease: Status: Acute (4) COPD (chronic obstructive pulmonary disease): Status: Acute Qualifiers: COPD type: unspecified COPD Qualified Code(s): J44.9 - Chronic obstructive pulmonary disease, unspecified (5) Pulmonary artery hypertension: Status: Acute (6) Ex-smoker: Status: Acute (7) Post-COVID syndrome: Status: Acute (8) Obstructive sleep apnea: Status: Acute #Acute hypoxic respiratory failure with hypoxemia-ILD exacerbation/viral pneumonitis #Undiagnosed ILD-pretty broad differential at this point of time-NSIP/subacute OR chronic HP/CEP/AIP-progressive since 2013 based on x-rays #COPD in ex-smoker 50 pack year history quit 2004 #Group 3 pulmonary hypertension-ILD + COPD + MICHAEL # covid 19 + ve 11/14/20 2 months ago #MICHAEL on CPAP -Currently on 55 L 75%-saturating 92%-need close monitoring in ICU -Gradual worsening of respiratory status and requiring high FiO2-at risk for intubation -ABG 7.4 /32/59/20 2/90% on high flow 35 L 75% -Progressive ILD based on chest x-rays since 2013; recent CTD panel as out patient negative -CTA-ruled out PE but predominant reticular interstitial changes-there is mosaic pattern air bronchograms distributed in the upper and lower lobes both centrally anteriorly with no recent nodules or masses. There is some evidence of bilateral bronchiectasis in the upper lobes. This CT is not a typical UIP pattern as there is no evidence of bibasilar honeycombing and with the presence of extensive GGO's. 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- difficult to determine underlying cause -S/p bronchoscopy 01/18/2021 and obtained BAL from [facility] - -Two-low WBC to do dif ferential -BAL bacterial cultures, fungal cultures, PCP, galactomannan, beta D glucan depending - Once patient recovers from this acute episode, Patient needs surgical lung biopsy for definitive diagnosis as transbronchial biopsy yield is low -We will treat it as ILD exacerbation and recommended Solu-Medrol 40 every 8 HR - monitor sugars on this diabetic patient ; currently on Lantus 20 mg at be dtime and I increased to Lantus 15 mg twice daily and patient on high-dose insulin coverage -So far sputum culture negative bacterial antigens negative, MRSA negative, UA negative, HIV negative, procalcitonin 0.08, pending respiratory viral panel -Although patient has no evidence of immunosuppression-received only 10 days p.o. prednisone prior to admission - given the rapidity of O2 requirement and possible PCP in immunocompetent patients-started on Bactrim and sent for BAL PCP PCR, -Discontinued Vancomyicn as MRSA is negative, currently on imipenem and I added Levaquin 750 mg p.o. for atypical coverage - Other causes of GGO's on CT chest-underlying cardiac cause -but pt had negative nuclear stress testing on 12/12/2020. BNP 114, Echocardiogram 10/24/2020 did reveal 1/4 diastolic dysfunction, preserved EF, pulmonary hypertension at least moderate -repeat echo 01/17/2021 normal LV size and systolic function with EF 68% and mild LVH. No pericardial effusion. -Patient med list showed he is on sildenafil-initially presumed secondary to pulmonary hypertension but patient reported that he is using it for his ED but he does not use it often. Discontinued sildenafil -Monitor intake output, electrolytes and renal functions closely and try to keep fluid balance net negative -Continue DuoNeb nebulization every 6 hours scheduled, Singulair 10 mg p.o. daily, -Patient needs close monitoring for respiratory status for possible acute decompensation requiring mechanical intubation At this point of time, patient prognosis remains critical to poor, given his chronic underlying idiopathic interstitial lung disease-worsening respiratory status requiring increasing amounts of oxygen-covered with broad-spectrum antibiotics for ??? acute bacterial infections and with steroids for ILD exacer maryjo. Underwent bronchoscopy 01/18/2021 and [facility] for studies- results pending although has too low WBC and BAL Attestations Medical Necessity Statement*: Need hospital stay for respiratory failure requiring IV antibiotics and further evaluation of interstitial lung disease. Critical Care Time: The high probability of a clinically significant, sudden or life threatening deterioration of the patient's [pulmonary, infectious disease] system(s) required my full and direct attention, intervention and personal management. The critical care time is as shown. This time is in addition to time spent performing any reported procedures but includes the following: [x] Data and vital sign review and interpretation [x] Patient assessment, examination and intervention [x] Documentation [x] Medication orders and management Critical Care Time (min): 45 Coding Level of Care Code Established Pt Acute Candy Depositing Machine Operator for Chg Fwd Patient Type Established History Comprehensive Exam Comprehensive Medical Decision Making High Complexity Diagnoses Acute respiratory failure with hypoxemia J96.01 Interstitial lung disease J84.9 Restrictive lung disease J98.4 COPD (chronic obstructive pulmonary disease) J44.9 COPD type: unspecified COPD Pulmonary artery hypertension I27.21 Ex-smoker Z87.891 Post-COVID syndrome B94.8 Obstructive sleep apnea G47.33 Time Spent (min) 45
[2021-01-19] MEDS: levoFLOXacin 750 mg Tablet PO (11:04)
[2021-01-19] MEDS: sulfamethoxazole-trimeth inj 480 MG in dextrose 5 % 500 ML 353.3 MG IV (11:04)
[2021-01-19] MEDS: saline nasal spray 44mL Btl 1 SPRAY NASAL (11:04)
--- NOTE | 2021-01-19 11:58 | PC.NURSE ---
Attempted to director call center sales to notify [facility] for family rounding and update. No answer.
[2021-01-19 12:24] LABS: Erythrocyte Sedimentation Rate 53 mm/hr (0-10)
[2021-01-19 12:48] LABS: Glucose Point of Care 314 mg/dL (70-110)
--- NOTE | 2021-01-19 13:56 | PM.PN ---
Subjective Subjective: Interval history: Parth reported to me he felt perhaps a little bit better this morning. Still requiring a significant amount of FiO2. Medications: Reviewed: Yes Vitals/I&O/Wt Last Vital Signs Temp 97.7 F 01/19/21 13:00 Pulse 93 01/19/21 13:30 Resp 31 H 01/19/21 13:30 BP 102/86 01/19/21 13:30 Pulse Ox 95 01/19/21 13:30 01/18/21 01/19/21 01/19/21 22:59 06:59 14:59 Intake Total 1110 / 1740 1570 / 3310 200 / 200 Output Total 1300 / 1300 2050 / 3350 1400 / 1400 Balance -190 / 440 -480 / -40 -1200 / -1200 Physical Exam Narrative: EXAM NARRATIVE: General exam no distress on current oxygen amount Neck is supple no lymphadenopathy or thyromegaly Cardiovascular regular rate and rhythm, no murmur Lungs dry crackles bibasilar Abdomen is soft, positive bowel sounds, obese. No obvious organomegaly Extremities no cyanosis clubbing or edema, cap refill brisk Urinary Catheter Management^: Meza: Cath Placed During This Visit: yes Reason for Continuing Indwelling Catheter: Accurate Measurement of Urinary Output in Critically Ill Patients Urinary Catheter Date of Insertion: 01/18/21 Urinary Catheter Time of Insertion: 00:05 Data : 01/19/21 04:43 01/19/21 04:43 Micro: Microbiology 01/19/21 10:25 Legionella Urinary Antigen - Final Urine Catheterized 01/18/21 13:57 Gram Stain - Final Lung Right Middle Lobe 01/17/21 18:17 Blood Culture - Preliminary Blood NEGATIVE TO DATE 01/17/21 18:09 Blood Culture - Preliminary Blood NEGATIVE TO DATE 01/18/21 13:57 ADIA Preparation - Final Other Source 01/16/21 11:04 Gram Stain - Final Sputum - Expectorated Sputum Sputum Culture - Final A&P Assessment and plan (1) Acute respiratory failure with hypoxemia: Wean high flow oxygen as tolerated Etiology is likely acute pneumonia, superimposed on pulmonary fibrosis. Cannot rule out exacerbation of interstitial lung disease. MRSA PCR negative so vancomycin discontinued early on admission Zosyn changed to Primaxin yesterday as no patient improvement was noted. Perhaps slightly better today. Bacterial antigen panel negative. Legionella antigen negative. Possibility of PCP so Bactrim initiated. Fungitell, PCR for PCP have been sent Await sputum culture which is still pending Received 2 doses of Lasix yesterday without improvement in pulmonary status. PATRICK inhibitor and Norvasc were stopped secondary to lower blood pressures. Carvedilol discontinued as well. Continue pulmonary toilet Appreciate pulmonary consultation. Underwent bronchoscopy on January 18 with further cultures, and pathology obtained. Interstitial lung disease appears to predate Covid diagnosis November 13. Continue IV steroids Status: Acute (2) Pneumonia: See notations above Currently on Bactrim, Primaxin Status: Acute (3) Interstitial lung disease: Continue IV steroids for concern of exacerbation. Status: Acute (4) Pulmonary artery hypertension: Continue sildenafil. On further review this was initiated for erectile dysfunction. Echocardiogram demonstrates preserved ejection fraction. Status: Acute (5) Diabetes mellitus: Sliding scale insulin. Increase to aggressive today January 18 Long-acting insulin increased again today Increase as needed secondary to IV steroid use. Steroid decreased slightly. Status: Acute Additional A&P Information Multiple other medical problems as outlined in the past medical history Full code Lovenox for DVT prophylaxis Prognosis guarded secondary to continued worsening requiring significant amounts of high flow oxygen. Attestations Medical Necessity Statement*: Needs continued hospitalization secondary respiratory failure requiring high amount of FiO2. Coding Level of Care Code Acute Shellfish Meat Separator Operator for Mateo Small Diagnoses Acute respiratory failure with hypoxemia J96.01 Pneumonia J18.9 Interstitial lung disease J84.9 Pulmonary artery hypertension I27.21 Diabetes mellitus E11.9
--- NOTE | 2021-01-19 14:44 | PC.NURSE ---
Nurse attempted to call [facility] to give an update. No answer. Nurse spoke to patient's sister named brian and gave an update. Nurse also gave an update to patient's who visited today.
--- NOTE | 2021-01-19 15:03 | PC.RESP ---
RT Shift Note Frequent safety and respiratory rounds continue. Orders completed as indicated. Patient monitored pre and post treatments throughout shift. Patient [Did.] tolerate treatments appropriately. Condition [DidNotChange]. Patient and/or insurance account representative educated on respiratory treatment and medications. Patient and/or insurance account representative [verbalized understanding]. Will continue to monitor patient progress.
[2021-01-19 17:19] LABS: Glucose Point of Care 268 mg/dL (70-110)
[2021-01-19] MEDS: insulin lispro 100 unit/1 mL SUBCUT ×2 (17:45→20:23)
--- NOTE | 2021-01-19 18:14 | PC.NURSE ---
Shift Note Frequent safety and comfort rounds continue. Orders and/or nursing care completed as indicated. Patient monitored for response to intervention and treatment. Shift summary: Overall Uneventful shift. Patient spent most of the day up to the chair. He desaturates form the mid 90's to the low 80's while getting up to the bedside commode and his ability to recover has been improving throughout the shift. Family has been updated on status. Total urine output for day shift 01/19/2021 has been 2200 mL. Patient attempted bowel movement twice, but only passed gas.
[2021-01-19 20:12] LABS: Glucose Point of Care 362 mg/dL (70-110)
[2021-01-19] MEDS: atorvastatin 40 mg Tablet 20 MG PO (20:20)
[2021-01-19] MEDS: sulfamethoxazole-trimeth inj 480 MG in dextrose 5 % 500 ML 353 MG IV (20:26)
[2021-01-20] VITALS (42 sets, daily range): BP systolic 108–148; BP diastolic 67–107; PULSE 75–103; RESP 17–41; TEMP 36.7–37; O2SAT 85–99
[2021-01-20] MEDS: sulfamethoxazole-trimeth inj 480 MG in dextrose 5 % 500 ML 353.33 MG IV (02:05)
[2021-01-20] MEDS: ipratropium-albuterol 3 mL Neb INHALATION ×6 (03:40→23:17)
[2021-01-20 05:16] LABS: Basophils % 0.2 %; Hematocrit 36.2 % (42.0-52.0); Hemoglobin 11.9 g/dL (11.7-16.6); Lymphocytes # 0.8 10^3/uL (0.8-4.8); Mean Corpuscular HGB Conc 32.9 g/dL (30.0-36.0); Mean Corpuscular Hemoglobin 28.2 pg (28.0-34.0); Mean Corpuscular Volume 85.8 fl (80-94); Mean Platelet Volume 9.7 fL (7.4-10.4); Neutrophils # 17.24 10^3/uL (1.8-7.7); Nucleated Red Blood Cells % 0 %; Platelet Count 322 10^3/cmm (130-400); Red Blood Count 4.22 10^6/uL (4.1-5.3); Red Cell Distribution Width 14.5 % (12.1-15.1); White Blood Count 20.3 10^3/uL (4.0-10.0)
[2021-01-20 05:40] LABS: Blood Urea Nitrogen 20 mg/dL (6-20); Calcium 8.7 mg/dL (8.5-10.5); Carbon Dioxide 22 mmol/L (22-29); Chloride 91 mmol/L (98-107); Glomerular Filtration Rate 98.9 mL/min (90-130); Glucose 302 mg/dL (65-115); Osmolality Calculated 278 mOsm/kg (285-295); Sodium 127 mmol/L (136-145)
--- NOTE | 2021-01-20 05:52 | PC.NURSE ---
Shift Note Frequent safety and comfort rounds continue. Pt has not slept well throughout the night. States he feels a lot weaker this morning. Had one coughing episode and dropped into the 70s and took a long time to recover. Orders and nursing care completed as indicated. Patient monitored for response to intervention and treatment. Education provided includes ways to conserve energy. Patient verbalized understanding but needs reinforcement. Will continue care.
[2021-01-20 07:42] LABS: Glucose Point of Care 302 mg/dL (70-110)
[2021-01-20] MEDS: benzonatate 100 mg Capsule PO ×3 (08:03→20:37)
[2021-01-20] MEDS: aspirin 81 mg EC Tablet PO (08:03)
[2021-01-20] MEDS: sertraline 50 mg Tablet PO (08:03)
[2021-01-20] MEDS: baclofen 10 mg Tablet 20 MG PO ×2 (08:03→17:55)
[2021-01-20] MEDS: pantoprazole DR 40 mg Tablet PO (08:03)
[2021-01-20] MEDS: montelukast sodium 10 mg Tablet PO (08:03)
[2021-01-20] MEDS: levoFLOXacin 750 mg Tablet PO (08:03)
[2021-01-20] MEDS: insulin lispro 100 unit/1 mL SUBCUT ×4 (08:04→20:46)
[2021-01-20] MEDS: nystatin 100,000 unit/mL UDC 5 mL 500000 UNIT PO ×4 (08:04→20:37)
--- NOTE | 2021-01-20 09:37 | PM.PN ---
Subjective Subjective: Interval history: Warren reports he is feeling okay this morning but he had quite a hard time last night after coughing spell. From my understanding he had desaturation into the 70s, and his FiO2 requirement went up to 100%. No vomiting. No chest pain. Medications: Reviewed: Yes Vitals/I&O/Wt Last Vital Signs Temp 98.1 F 01/20/21 07:30 Pulse 94 01/20/21 08:43 Resp 20 H 01/20/21 08:37 BP 127/76 01/20/21 07:30 Pulse Ox 92 01/20/21 08:37 01/19/21 01/20/21 01/20/21 22:59 06:59 14:59 Intake Total 1560 / 1860 1880 / 3740 Output Total 2350 / 3750 2450 / 6200 900 / 900 Balance -790 / -1890 -570 / -2460 -900 / -900 Physical Exam Narrative: EXAM NARRATIVE: General exam no distress on current oxygen amount. Continue diuresis yesterday. Oropharynx with small amount of thrush right inner cheek Neck is supple no lymphadenopathy or thyromegaly Cardiovascular regular rate and rhythm, no murmur Lungs dry crackles bibasilar Abdomen is soft, positive bowel sounds, obese. No obvious organomegaly Extremities no cyanosis clubbing or edema, cap refill brisk Urinary Catheter Management^: Meza: Cath Placed During This Visit: yes Reason for Continuing Indwelling Catheter: Accurate Measurement of Urinary Output in Critically Ill Patients Urinary Catheter Date of Insertion: 01/18/21 Urinary Catheter Time of Insertion: 00:05 Data : 01/20/21 04:45 01/20/21 04:45 Micro: Microbiology 01/18/21 13:57 Gram Stain - Final Lung Right Middle Lobe Bronchoalveolar Lavage Culture - Preliminary Yeast 01/19/21 10:25 Legionella Urinary Antigen - Final Urine Catheterized A&P Assessment and plan (1) Acute respiratory failure with hypoxemia: Wean high flow oxygen as tolerated. This morning it has been decreased to 75% Etiology is likely acute pneumonia, superimposed on pulmonary fibrosis. Cannot rule out exacerbation of interstitial lung disease. MRSA PCR negative so vancomycin discontinued early on admission Zosyn changed to Primaxin as no patient improvement initially. Levaquin added to this January 19. Bacterial antigen panel negative. Legionella antigen negative. Possibility of PCP so Bactrim initiated. Fungitell, PCR for PCP have been sent Lavage sample from bronchoscopy growing a small amount of yeast. Pulmonary has indicated they may place him on fluconazole. Nystatin was started secondary to small amount of thrush noted in the mouth today Lasix given early on in his hospital course did not give any improvement to pulmonary status. PATRICK inhibitor and Norvasc were stopped secondary to lower blood pressures. Carvedilol discontinued as well. Continue pulmonary toilet Appreciate pulmonary consultation. Underwent bronchoscopy on January 18 with further cultures, and pathology obtained. Interstitial lung disease appears to predate Covid diagnosis November 13. Continue IV steroids Status: Acute (2) Pneumonia: See notations above Currently on Bactrim day #4, Primaxin day #4, Levaquin day #2. Received Zosyn and vancomycin early in hospital course. Status: Acute (3) Interstitial lung disease: Continue IV steroids for concern of exacerbation. Status: Acute (4) Pulmonary artery hypertension: Was not on sildenafil for pulmonary hypertension on admission. Was for erectile dysfunction and to use this very sparingly. It was not discontinued. Echocardiogram demonstrates preserved ejection fraction. Status: Acute (5) Diabetes mellitus: Sliding scale insulin. Increase to aggressive today January 18 Long-acting insulin increased again today Increase as needed secondary to IV steroid use. Steroid decreased slightly. Status: Acute Additional A&P Information Multiple other medical problems as outlined in the past medical history Full code Lovenox for DVT prophylaxis Prognosis guarded secondary to continued worsening requiring significant amounts of high flow oxygen. Appreciate pulmonary consultation Attestations Medical Necessity Statement*: Needs continued hospitalization secondary to respiratory failure requiring high flow oxygen. Coding Level of Care Code Acute Assembler Seat for Mateo Small Diagnoses Acute respiratory failure with hypoxemia J96.01 Pneumonia J18.9 Interstitial lung disease J84.9 Pulmonary artery hypertension I27.21 Diabetes mellitus E11.9
[2021-01-20] MEDS: insulin glargine 100 units/1 mL 30 UNIT SUBCUT (09:54)
[2021-01-20 10:46] LABS: ABG PCO2 32.1 mmHg (35-45); ABG PH Result 7.47 (7.35-7.45); Alveolar-Arterial Oxygen Gradi 56.6 mmHg (5-10); Arterial Blood Gas Hematocrit 38.6 % (42-52); Base Excess ABG 0.4 mmol/L (-2.0-2.0); Blood Gas Allen Test Pos; Blood Gas Operator Identificat CAK; Blood Gas Sample Site Radial, left; Blood Gas Sample Type Arterial; Carboxyhemoglobin 0.7 %THgb (0.4-20.1); HCO3 ABG 23.4 mmol/L (22-26); HGB O2 Sat 88.5 % (95-100); Ionized Calcium Level - ABG 1.2 mmol/L (1.1-1.4); Methemoglobin 0.4 % (0.4-1.5); Oxygen Device HAG; Oxygen Saturation ABG 89.5; PO2 ABG 58.3 mmHg (80.0-100.0); Potassium Level - ABG 4.9 mmol/L (3.5-5.0); Total Hemoglobin 12.6 g/dL (14-18)
[2021-01-20] MEDS: sulfamethoxazole-trimeth inj 480 MG in dextrose 5 % 500 ML 300 MG IV ×2 (10:46→18:15)
[2021-01-20] MEDS: enoxaparin 40 mg/0.4 mL Syringe SUBCUT (10:47)
--- NOTE | 2021-01-20 10:49 | PC.CHAP ---
Pastoral Care Encounter/Spiritual Assessment Type of Contact [] Declined utilization management rn visit [] Patient/Family/Request visit [] Outpatient visit [] Follow-up visit [] Physician referral [] Code/Alert [x] Routine visit [] Staff referral [] Actively dying [] Patient sleeping [] Family support [] [] Out of room [] Palliative care [] [x] Receiving care in room [] Pre-surgical visit [] Trauma [] Long length of stay [x] ICU visit [x] Other: stood at door and prayed for patient... setting in chair Relational/Emotional Strength [] Patient feels connected with others/family/visitors/staff [] Distress [] Loneliness/isolation [] Abandonment Spirituality of Patient [] Person of Anneliese [] Attends Sikh of their Anneliese [] Believes in Prayer [] Reads Bible or Sabianist materials [] There are Spiritual issues to be addressed [facility] [employer] Interventions [x] Prayer [] Active listening [] Non-anxious presence [] Spiritual/emotional support [] Crisis/trauma care [] Spiritual counseling [] Bereavement support [] Provided bereavement packet [] Provided Bible/devotional materials [] Provided toy/stuffed animal, coloring book to patient or family member [] Provided Communion [] Anointing/[place] [] Salvation [x] Completed spiritual assessment [] Other: Impact on Illness or Injury [] Angry [] Fearful [] Anxious [] Often cries [] Exhaustion [] Unable to work [] Unable to attend muslim [] Unable to walk/stand [] Unable to read [] Unable to drive [] Unable to eat/drink [] Unable to sleep [] Unable to be with family [] Patient intubated [] Other: Summary Time spent with patient
[2021-01-20 12:10] LABS: Glucose Point of Care 360 mg/dL (70-110)
--- NOTE | 2021-01-20 12:35 | PC.NURSE ---
up in chair for noon meal o2 sats decreased with activity at this time. fio2 increased
--- NOTE | 2021-01-20 12:53 | PM.PN ---
Subjective Subjective: Interval history: -Patient seen at bedside today -Patient seen sitting in chair comfortably on 45 L 70% FiO2 -Yesterday night patient had a severe coughing episode and transiently FiO2 has to be increased to 100% and patient felt comfortable after sitting out of bed to chair -Other labs and imaging reviewed Medications: Reviewed: Yes Vitals/I&O/Wt Last Vital Signs Temp 98.1 F 01/20/21 07:30 Pulse 86 01/20/21 12:00 Resp 38 H 01/20/21 12:00 BP 148/107 01/20/21 12:00 Pulse Ox 88 L 01/20/21 12:00 01/19/21 01/20/21 01/20/21 22:59 06:59 14:59 Intake Total 1560 / 1860 1880 / 3740 100 / 100 Output Total 2350 / 3750 2450 / 6200 900 / 900 Balance -790 / -1890 -570 / -2460 -800 / -800 Physical Exam Narrative: EXAM NARRATIVE: General: alert, mild to moderate respiratory distress on high flow nasal cannula HEENT: conj clear, EOMI, PERRL, mmm, Neck: supple, no meningismus Heme: no cervical LAP Pulmonary: CTAB, no wheezing, rhonchi, crackles Cardiovascular: rrr, nl s1s2, no mrg Abdomen: soft, nt, nd, no r/g, bs+ Extremities: pulses +, no edema, no c/c : no CVA tenderness Skin: intact, no rash MSK: no back or neck pain Neurologic: grossly intact Urinary Catheter Management^: Meza: Cath Placed During This Visit: yes Reason for Continuing Indwelling Catheter: Accurate Measurement of Urinary Output in Critically Ill Patients Urinary Catheter Date of Insertion: 01/18/21 Urinary Catheter Time of Insertion: 00:05 Data : 01/21/21 04:40 01/21/21 11:08 Micro: Microbiology 01/18/21 13:57 Gram Stain - Final Lung Right Middle Lobe Bronchoalveolar Lavage Culture - Preliminary Yeast 01/19/21 10:25 Legionella Urinary Antigen - Final Urine Catheterized A&P Assessment and plan (1) Acute respiratory failure with hypoxemia: Status: Acute (2) Interstitial lung disease: Status: Acute (3) Restrictive lung disease: Status: Acute (4) COPD (chronic obstructive pulmonary disease): Status: Acute Qualifiers: COPD type: unspecified COPD Qualified Code(s): J44.9 - Chronic obstructive pulmonary disease, unspecified (5) Pulmonary artery hypertension: Status: Acute (6) Ex-smoker: Status: Acute (7) Post-COVID syndrome: Status: Acute (8) Obstructive sleep apnea: Status: Acute (9) Hyponatremia: Status: Acute #Acute hypoxic respiratory failure with hypoxemia-ILD exacerbation/viral pneumonitis #Undiagnosed ILD-pretty broad differential at this point of time-NSIP/subacute OR chronic HP/CEP/AIP-progressive since 2013 based on x-rays #COPD in ex-smoker 50 pack year history quit 2004 #Group 3 pulmonary hypertension-ILD + COPD + MICHAEL # covid 19 + ve 11/14/20 2 months ago #MICHAEL on CPAP #Hyponatremia 127 -Currently on 40 L 75%-saturating 92%-need close monitoring in ICU - at risk for intubation -ABG 7.4 7/32/58/23/89% on high flow 40 L 75% -Progressive ILD based on chest x-rays since 2013; recent CTD panel as out patient negative -CTA-ruled out PE but predominant reticular interstitial changes-there is mosaic pattern air bronchograms distributed in the upper and lower lobes both centrally anteriorly with no recent nodules or masses. There is some evidence of bilateral bronchiectasis in the upper lobes. This CT is not a typical UIP pattern as there is no evidence of bibasilar honeycombing and with the presence of extensive GGO's. 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-difficult to determine underlying cause -S/p bronchoscopy 01/18/2021 and obtained BAL from [facility] - -too-low WBC to do differential -BAL-Janice albicans; PCP, galactomannan, beta D glucan D pending - Once patient recovers from this acute episode, Patient needs surgical lung biopsy for definitive diagnosis as transbronchial biopsy yield is low -We will treat it as ILD exacerbation and recommended Solu-Medrol 40 every 8 HR - monitor sugars on this diabetic patient ; increase Lantus to 30 mg twice daily and patient on high-dose insulin coverage -So far sputum culture negative bacterial antigens negative, MRSA negative, UA negative, HIV negative, procalcitonin 0.08, pending respiratory viral panel -Although patient has no evidence of immunosuppression-received only 10 days p.o. prednisone prior to admission - given the rapidity of O2 requirement and possible PCP in immunocompetent patients-started on Bactrim and sent for BAL PCP PCR, -currently on imipenem (d4) and Levaquin 750 mg p.o.(d2) for atypical coverage; Discontinued Vancomyicn as MRSA is negative, - Other causes of GGO's on CT chest-underlying cardiac cause -but pt had negative nuclear stress testing on 12/12/2020. BNP 114, Echocardiogram 10/24/2020 did reveal 1/4 diastolic dysfunction, preserved EF, pulmonary hypertension at least moderate -repeat echo 01/17/2021 normal LV size and systolic function with EF 68% and mild LVH. No pericardial effusion. -Patient med list showed he is on sildenafil-initially presumed secondary to pulmonary hypertension but patient reported that he is using it for his ED but he does not use it often. Discontinued sildenafil -Monitor intake output, electrolytes and renal functions closely and try to keep fluid balance net negative -Continue DuoNeb nebulization every 6 hours scheduled, I will discontinue Singulair 10 mg p.o. daily, -Patient needs close monitoring for respiratory status for possible acute decompensation requiring mechanical intubation -Sodium 127-corrected 130 -we see gradual decline- patient has significant urine output 200 to 250 cc/h-euvolemic hyponatremia-certainly osmotic diuresis due to high sugars/SIADH/Bactrim use are among differentials. I will send urine electrolytes, urine osmolality and serum osmolality and encourage fluid restriction. It can happen with Bactrim induced tubular blockade of sodium reabsorption; and patient is receiving D5 through Bactrim pharmacy reported that it cannot change it to NS which is the main cause of hyperglycemia and hyponatremia. Will closely monitor electrolytes At this point of time, patient prognosis remains critical to poor, given his chronic underlying idiopathic interstitial lung disease-currently FiO2 requirements plateaued at 45 L 70%-covered with broad-spectrum antibiotics for ??? acute bacterial infections and with steroids for ILD exacerbation. Underwent bronchoscopy 01/18/2021 and BAL from [facility] was sent for studies-results pending although has too low WBC and BAL. Awaiting PCP PCR-if negative will stop Bactrim. Attestations Medical Necessity Statement*: Need hospital stay for respiratory failure requiring IV antibiotics and further evaluation of interstitial lung disease. Critical Care Time: The high probability of a clinically significant, sudden or life threatening deterioration of the patient's [pulmonary, infectious disease] system(s) required my full and direct attention, intervention and personal management. The critical care time is as shown. This time is in addition to time spent performing any reported procedures but includes the following: [x] Data and vital sign review and interpretation [x] Patient assessment, examination and intervention [x] Documentation [x] Medication orders and management Critical Care Time (min): 45 Coding Level of Care Code Established Pt Acute Stitcher Set Up Operator Automatic for Chg Fwd Patient Type Established History Comprehensive Exam Comprehensive Medical Decision Making High Complexity Diagnoses Acute respiratory failure with hypoxemia J96.01 Interstitial lung disease J84.9 Restrictive lung disease J98.4 COPD (chronic obstructive pulmonary disease) J44.9 COPD type: unspecified COPD Pulmonary artery hypertension I27.21 Ex-smoker Z87.891 Post-COVID syndrome B94.8 Obstructive sleep apnea G47.33 Hyponatremia E87.1 Time Spent (min) 45
--- NOTE | 2021-01-20 12:54 | XR_ITS ---
WS: [id number] XR chest 1V portable [id number] REASON FOR EXAM: pneumonia FINDINGS: Compared to the previous examination of 01/19/2021, the lungs appear much better aerated although sign ificant bilateral pulmonary infiltrates persist. There are no new findings identified. XR/XR chest 1V portable [id number] IMPRESSION: At this point it becomes difficult to separate the acute findings from the unde rlying interstitial lung disease. Possibly this was congestive failure superimp osed on chronic underlying lung disease. Correlate clinically.
[2021-01-20] MEDS: fluconazole 100 mg Tablet 200 MG PO (13:05)
--- NOTE | 2021-01-20 14:09 | PC.RESP ---
PULMONARY REHAB INFORMATION SENT TO PATIENT.
[2021-01-20] MEDS: LORazepam 2 mg/mL INJ 1 mL 0.5 MG IVP ×2 (16:04→23:42)
[2021-01-20 17:49] LABS: Glucose Point of Care 252 mg/dL (70-110)
[2021-01-20 18:02] LABS: D Dimer 4.27 ug/mIFEU (0-0.59)
--- NOTE | 2021-01-20 18:51 | NUR.SHIFT ---
Shift Note Frequent safety and comfort rounds continue. Orders and/or nursing care completed as indicated. Patient monitored for response to intervention and treatment(s). Education provided includes[]. Patient and/or accounts receivable representative aware of gi bleed . Will continue to monitor.
[2021-01-20 20:27] LABS: Glucose Point of Care 334 mg/dL (70-110)
[2021-01-20] MEDS: atorvastatin 40 mg Tablet 20 MG PO (20:37)
[2021-01-20] MEDS: HYDROcodone-acetaminophen 10-325 mg Tablet 1 TAB PO (20:38)
[2021-01-20] MEDS: insulin glargine 100 units/1 mL 35 UNIT SUBCUT (20:46)
--- NOTE | 2021-01-20 21:08 | PC.NURSE ---
Shift report from ALMAS RN. Pt sitting in chair. AAOx4 and able to verbalize needs. No s/s of distress-- on HFNC with sats 87-89% Will continue POC
[2021-01-21] VITALS (41 sets, daily range): BP systolic 92–170; BP diastolic 61–91; PULSE 20–116; RESP 18–35; TEMP 36.6–37; O2SAT 80–93
[2021-01-21] MEDS: sulfamethoxazole-trimeth inj 480 MG in dextrose 5 % 500 ML 300 MG IV (01:48)
[2021-01-21] MEDS: HYDROcodone-acetaminophen 10-325 mg Tablet 1 TAB PO ×2 (02:14→20:27)
[2021-01-21] MEDS: ipratropium-albuterol 3 mL Neb INHALATION ×6 (03:35→23:12)
[2021-01-21 05:21] LABS: Basophils % 0.2 %; Hematocrit 36.6 % (42.0-52.0); Hemoglobin 12.2 g/dL (11.7-16.6); Lymphocytes % 5.2 %; Mean Corpuscular HGB Conc 33.3 g/dL (30.0-36.0); Mean Corpuscular Hemoglobin 28.6 pg (28.0-34.0); Mean Corpuscular Volume 85.9 fl (80-94); Mean Platelet Volume 9.9 fL (7.4-10.4); Monocytes # 1.8 10^3/uL (0.2-0.9); Neutrophils % 84.6 %; Nucleated Red Blood Cells % 0 %; Platelet Count 316 10^3/cmm (130-400); Red Blood Count 4.26 10^6/uL (4.1-5.3); Red Cell Distribution Width 14.7 % (12.1-15.1); White Blood Count 19.6 10^3/uL (4.0-10.0)
[2021-01-21 05:44] LABS: Alanine Aminotransferase 12 U/L (0-41); Albumin Level 3.3 g/dL (3.5-5.2); Alkaline Phosphatase 94 IU/L (40-130); Aspartate Amino Transferase 8 U/L (0-40); Blood Urea Nitrogen 23 mg/dL (6-20); Calcium 8.7 mg/dL (8.5-10.5); Carbon Dioxide 23 mmol/L (22-29); Chloride 88 mmol/L (98-107); Creatinine Clr Calc Pharmacy 149.9985; Globulin 4.1 g/dL (1.3-4.6); Glomerular Filtration Rate 115.4 mL/min (90-130); Glucose 251 mg/dL (65-115); Osmolality Calculated 266 mOsm/kg (285-295); Sodium 122 mmol/L (136-145); Total Bilirubin 0.4 mg/dL (0.15-1.2); Total Protein 7.4 g/dL (6.6-8.7)
--- NOTE | 2021-01-21 06:15 | PC.NURSE ---
END OF SHIFT: Pt bathed and assisted up to chair. Feet elevated on foot stool. Pt O2 sats dropped to 78%, but recovered to 88-89%. HFNC 45L and FiO2 80%. Pain assessment, potty and possessions addressed. Call light in reach. Will prepare for oncoming shift report.
[2021-01-21 07:27] LABS: Glucose Point of Care 321 mg/dL (70-110)
[2021-01-21] MEDS: baclofen 10 mg Tablet 20 MG PO ×2 (08:10→17:02)
[2021-01-21] MEDS: fluconazole 100 mg Tablet 200 MG PO (08:10)
[2021-01-21] MEDS: pantoprazole DR 40 mg Tablet PO (08:10)
[2021-01-21] MEDS: sertraline 50 mg Tablet PO (08:10)
[2021-01-21] MEDS: montelukast sodium 10 mg Tablet PO (08:10)
[2021-01-21] MEDS: levoFLOXacin 750 mg Tablet PO (08:11)
[2021-01-21] MEDS: insulin lispro 100 unit/1 mL SUBCUT ×4 (08:11→20:23)
[2021-01-21] MEDS: aspirin 81 mg EC Tablet PO (08:11)
[2021-01-21] MEDS: benzonatate 100 mg Capsule PO ×3 (08:11→20:28)
[2021-01-21] MEDS: nystatin 100,000 unit/mL UDC 5 mL 500000 UNIT PO ×4 (08:26→20:27)
[2021-01-21] MEDS: insulin glargine 100 units/1 mL 40 UNIT SUBCUT ×2 (08:42→20:21)
--- NOTE | 2021-01-21 09:07 | PM.PN ---
Subjective Subjective: Interval history: -Patient seen at bedside today morning -Sitting out of bed to chair-denied any new complaints and says his cough is not as bad as it was after starting Tessalon Perles -Still on 4 L and 75% FiO2 saturating 92% -Able to communicate and eat meals -Significant amount of urine output at least 200 - 250 cc/h feeling thirsty and is consuming increased amounts of fluids-counseled to restrict fluids -Labs and imaging reviewed Medications: Reviewed: Yes Vitals/I&O/Wt Last Vital Signs Temp 98 F 01/21/21 03:00 Pulse 86 01/21/21 08:14 Resp 22 H 01/21/21 08:14 BP 124/83 01/21/21 05:00 Pulse Ox 90 01/21/21 08:14 01/20/21 01/21/21 01/21/21 22:59 06:59 14:59 Intake Total 1350 / 1980 970 / 2950 Output Total 3300 / 4200 1350 / 5550 Balance -1950 / -2220 -380 / -2600 Physical Exam Narrative: EXAM NARRATIVE: General: alert, mild to moderate respiratory distress on high flow nasal cannula HEENT: conj clear, EOMI, PERRL, mmm, Neck: supple, no meningismus Heme: no cervical LAP Pulmonary: CTAB, no wheezing, rhonchi, crackles Cardiovascular: rrr, nl s1s2, no mrg Abdomen: soft, nt, nd, no r/g, bs+ Extremities: pulses +, no edema, no c/c : no CVA tenderness Skin: intact, no rash MSK: no back or neck pain Neurologic: grossly intact Urinary Catheter Management^: Meza: Cath Placed During This Visit: yes Reason for Continuing Indwelling Catheter: Accurate Measurement of Urinary Output in Critically Ill Patients Urinary Catheter Date of Insertion: 01/18/21 Urinary Catheter Time of Insertion: 00:05 Data : 01/21/21 04:40 01/21/21 11:08 Other Labs: Laboratory Results WBC 19.6 10^3/uL (4.0-10.0) H 01/21/21 04:40 RBC 4.26 10^6/uL (4.1-5.3) 01/21/21 04:40 Hgb 12.2 g/dL (11.7-16.6) 01/21/21 04:40 Hct 36.6 % (42.0-52.0) L 01/21/21 04:40 MCV 85.9 fl (80-94) 01/21/21 04:40 MCH 28.6 pg (28.0-34.0) 01/21/21 04:40 MCHC 33.3 g/dL (30.0-36.0) 01/21/21 04:40 RDW 14.7 % (12.1-15.1) 01/21/21 04:40 Plt Count 316 10^3/cmm (130-400) 01/21/21 04:40 MPV 9.9 fL (7.4-10.4) 01/21/21 04:40 Neut % (Auto) 84.6 % 01/21/21 04:40 Lymph % (Auto) 5.2 % 01/21/21 04:40 Bollinger % (Auto) 9.0 % 01/21/21 04:40 Eos % (Auto) 0.0 % 01/21/21 04:40 Baso % (Auto) 0.2 % 01/21/21 04:40 Neut # (Auto) 16.60 10^3/uL (1.8-7.7) H 01/21/21 04:40 Lymph # (Auto) 1.0 10^3/uL (0.8-4.8) 01/21/21 04:40 Bollinger # (Auto) 1.8 10^3/uL (0.2-0.9) H 01/21/21 04:40 Eos # (Auto) 0.0 10^3/uL (0.0-0.8) 01/21/21 04:40 Baso # (Auto) 0.0 10^3/uL (0.0-0.1) 01/21/21 04:40 Nucleated RBC % (auto) 0 % 01/21/21 04:40 Nucleated RBCs # 0.0 /100WBC 01/21/21 04:40 ESR 53 mm/hr (0-10) H 01/18/21 03:38 D-Dimer 4.27 ug/mIFEU (0-0.59) H 01/20/21 17:29 Specimen Type Arterial 01/20/21 10:35 Sample Site Radial, left 01/20/21 10:35 ABG pH 7.47 (7.35-7.45) H 01/20/21 10:35 ABG pCO2 32.1 mmHg (35-45) L 01/20/21 10:35 ABG pO2 58.3 mmHg (80.0-100.0) L 01/20/21 10:35 ABG HCO3 23.4 mmol/L (22-26) 01/20/21 10:35 ABG O2 Saturation 89.5 01/20/21 10:35 ABG Base Excess 0.4 mmol/L (-2.0-2.0) 01/20/21 10:35 Jorden Test Pos 01/20/21 10:35 A-a O2 Gradient 56.6 mmHg (5-10) H 01/20/21 10:35 Hematocrit 38.6 % (42-52) L 01/20/21 10:35 Hgb O2 Saturation 88.5 % (95-100) L 01/20/21 10:35 Carboxyhemoglobin 0.7 %THgb (0.4-20.1) 01/20/21 10:35 Methemoglobin 0.4 % (0.4-1.5) 01/20/21 10:35 Total Hemoglobin 12.6 g/dL (14-18) L 01/20/21 10:35 Sodium 128.0 mmol/L (131-143) L 01/20/21 10:35 Potassium 4.9 mmol/L (3.5-5.0) 01/20/21 10:35 Glucose 334.0 mg/dL (70-115) H 01/20/21 10:35 Ionized Calcium 1.2 mmol/L (1.1-1.4) 01/20/21 10:35 O2 Delivery Device Hag 01/20/21 10:35 O2 Liters/Min 40.0 % 01/20/21 10:35 FiO2 75.0 % 01/20/21 10:35 Return Checker ID Cak 01/20/21 10:35 Sodium 123 mmol/L (136-145) L 01/21/21 11:08 Potassium 5.5 mmol/L (3.5-5.1) H 01/21/21 11:08 Chloride 88 mmol/L (98-107) L 01/21/21 11:08 Carbon Dioxide 23 mmol/L (22-29) 01/21/21 11:08 Anion Gap 17.5 (5-19) 01/21/21 11:08 BUN 22 mg/dL (6-20) H 01/21/21 11:08 Creatinine 0.7 mg/dL (0.7-1.2) 01/21/21 11:08 GFR Calculation 115.4 mL/min (90-130) 01/21/21 11:08 Glucose 370 mg/dL (65-115) H 01/21/21 11:08 POC Glucose 294 mg/dL (70-110) H 01/21/21 16:51 Calculated Osmolality 274 mOsm/kg (285-295) L 01/21/21 11:08 Lactic Acid 3.0 mmol/L (0.5-2.2) H 01/16/21 07:15 Lactic Acid (Sepsis) 1.9 mmol/L (0.5-2.2) 01/16/21 10:17 Calcium 8.8 mg/dL (8.5-10.5) 01/21/21 11:08 Total Bilirubin 0.4 mg/dL (0.15-1.2) 01/21/21 04:40 AST 8 U/L (0-40) 01/21/21 04:40 ALT 12 U/L (0-41) 01/21/21 04:40 Alkaline Phosphatase 94 IU/L (40-130) 01/21/21 04:40 Troponin T Baseline 8 ng/L (0-15) 01/16/21 07:15 Troponin T 120 Minute 7.41 ng/L (0-15) 01/16/21 09:05 Delta Troponin T -0.59 ABS# (0-10) L 01/16/21 09:05 Troponin T Hi Sens 6Hr 6.30 ng/L (0-15) 01/16/21 13:16 Troponin T Hi Sens 6Hr Delta -1.70 ng/L (0-12) L 01/16/21 13:16 C-Reactive Protein 92.5 mg/L (0.0-4.9) H 01/18/21 03:38 NT-Pro-B Natriuret Pep 114 pg/mL (0-125) 01/16/21 07:15 Total Protein 7.4 g/dL (6.6-8.7) 01/21/21 04:40 Albumin 3.3 g/dL (3.5-5.2) L 01/21/21 04:40 Globulin 4.1 g/dL (1.3-4.6) 01/21/21 04:40 Procalcitonin 0.08 ng/mL (0-0.5) 01/17/21 06:00 Urine Color Yellow (Yellow) 01/16/21 09:36 Urine Appearance Clear (CLEAR) 01/16/21 09:36 Urine pH 5 (5-7) 01/16/21 09:36 Ur Specific [place] 1.015 (1.005-1.030) 01/16/21 09:36 Urine Protein Neg (Negative) 01/16/21 09:36 Urine Glucose (UA) Norm (Normal) 01/16/21 09:36 Urine Ketones Negative (Negative) 01/16/21 09:36 Urine Blood Neg (Negative) 01/16/21 09:36 Urine Nitrate Negative (Negative) 01/16/21 09:36 Urine Bilirubin Neg (Negative) 01/16/21 09:36 Urine Urobilinogen Norm mg/dL (Negative) 01/16/21 09:36 Ur Leukocyte Esterase Negative (Negative) 01/16/21 09:36 Urine RBC None /hpf (0-2) 01/16/21 09:36 Urine WBC Rare /hpf (0-5) 01/16/21 09:36 Ur Squamous Epith Cells Rare /hpf (0-5) 01/16/21 09:36 Amorphous Sediment Not Reportable 01/16/21 09:36 Urine Bacteria None /hpf (NONE) 01/16/21 09:36 Ur Random Sodium 78 mmol/L 01/21/21 09:30 Ur Random Potassium 31 mmol/L 01/21/21 09:30 Ur Random Chloride 59 mmol/L 01/21/21 09:30 Bronch Specimen Source Right middle lobe 01/18/21 13:57 Bronchial Fluid Color Red 01/18/21 13:57 Bronchial Fluid Appearance Bloody (CLEAR) 01/18/21 13:57 Bronchial Fluid WBC 10 /uL 01/18/21 13:57 Bronchial Fluid RBC 0 10^3/uL 01/18/21 13:57 Bronch Cells Counted TNP 01/18/21 13:57 Nasal/Oral COVID-19 PCR Not detected 01/17/21 17:45 HIV 1&2 Ab & HIV 1 Ag Non-reactive (Non-Reactiv) 01/17/21 06:00 HIV 1&2 Antibody Non-reactive (Non-Reactiv) 01/17/21 06:00 SARS-CoV-2 Ag (Rapid) Negative (Negative) 01/17/21 18:45 Beta-(1,3)-D-Glucan TNP 01/18/21 13:57 B-(1,3)-D-Glucan Intrp Not Reportable 01/18/21 13:57 Impressions Chest CTA 01/16/21 08:56 IMPRESSION: Interstitial lung disease which by chest x-ray has been progressive since 2013. The groundglass densities are nonspecific and could be related to the chronic interstitial lung disease or could represent an acute process superimposed on chronic lung disease. The differential here is extensive and requires more clinical correlation. One consideration with the symmetric adenopathy would be progressive sarcoidosis. The appearance is not typical for Covid Chest X-Ray 01/20/21 12:54 IMPRESSION: At this point it becomes difficult to separate the acute findings from the underlying interstitial lung disease. Possibly this was congestive failure superimposed on chronic underlying lung disease. Correlate clinically. A&P Assessment and plan (1) Acute respiratory failure with hypoxemia: Status: Acute (2) Interstitial lung disease: Status: Acute (3) Pneumonia: Status: Acute (4) Restrictive lung disease: Status: Acute (5) Ex-smoker: Status: Acute (6) Pulmonary artery hypertension: Status: Acute (7) Post-COVID syndrome: Status: Acute (8) Polyuria: Status: Acute (9) Hyponatremia: Status: Acute (10) SANDY (acute kidney injury): Status: Acute (11) Hyperkalemia: Status: Acute (12) COPD (chronic obstructive pulmonary disease): Status: Acute Qualifiers: COPD type: unspecified COPD Qualified Code(s): J44.9 - Chronic obstructive pulmonary disease, unspecified (13) Obstructive sleep apnea: Status: Acute #Acute hypoxic respiratory failure with hypoxemia-ILD exacerbation/viral pneumonitis #Undiagnosed ILD-pretty broad differential at this point of time-NSIP/subacute OR chronic HP/CEP/AIP-progressive since 2013 based on x-rays #COPD in ex-smoker 50 pack year history quit 2004 #Group 3 pulmonary hypertension-ILD + COPD + MICHAEL # covid 19 + ve 11/14/20 2 months ago #MICHAEL on CPAP #Polyuria-secondary to osmotic diuresis/?? SIADH-osmolality is pending #Hyponatremia 123-corrected sodium to brctvnd-218-beuumlef free water consumption/Bactrim induced/?? SIADH #Hyperkalemia-5.5-trend cellular shift to high glucose/Bactrim induced -Currently on 40 L 75%-saturating 92%-need close monitoring in ICU - at risk for intubation -ABG 7.4 732/58/23/89% on high flow 40 L 75% -Progressive ILD based on chest x-rays since 2014; recent CTD panel as out patient negative -CTA-ruled out PE but predominant reticular interstitial changes-there is mosaic pattern air bronchograms distributed in the upper and lower lobes both centrally anteriorly with no recent nodules or masses. There is some evidence of bilateral bronchiectasis in the upper lobes. This CT is not a typical UIP pattern as there is no evidence of bibasilar honeycombing and with the presence of extensive GGO's. 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-difficult to determine underlying cause -S/p bronchoscopy 01/18/2021 and obtained BAL from [facility] - -too-low WBC to do differential -BAL-Janice albicans; PCP, galactomannan, beta D glucan D pending - Once patient recovers from this acute episode, Patient needs surgical lung biopsy for definitive diagnosis as transbronchial biopsy yield is low -We will treat it as ILD exacerbation and recommended Solu-Medrol 40 every 8 HR - monitor sugars on this diabetic patient ; increase Lantus to 40 mg twice daily and patient on high-dose insulin coverage-also Taper Solu-Medrol to 40 every 12 -So far sputum culture negative bacterial antigens negative, MRSA negative, UA negative, HIV negative, procalcitonin 0.08, pending respiratory viral panel -Although patient has no evidence of immunosuppression-received only 10 days p.o. prednisone prior to admission - given the rapidity of O2 requirement and possible PCP in immunocompetent patients-started on Bactrim and sent for BAL PCP PCR, -currently on imipenem (d5) and Levaquin 750 mg p.o.(d3) for atypical coverage; Discontinued Vancomyicn as MRSA is negative, - Other causes of GGO's on CT chest-underlying cardiac cause -but pt had negative nuclear stress testing on 12/12/2020. BNP 114, Echocardiogram 10/24/2020 did reveal 1/4 diastolic dysfunction, preserved EF, pulmonary hypertension at least moderate -repeat echo 01/17/2021 normal LV size and systolic function with EF 68% and mild LVH. No pericardial effusion. -Patient med list showed he is on sildenafil-initially presumed secondary to pulmonary hypertension but patient reported that he is using it for his ED but he does not use it often. Discontinued sildenafil -Monitor intake output, electrolytes and renal functions closely and try to keep fluid balance net negative -Continue DuoNeb nebulization every 6 hours scheduled, I will discontinue Singulair 10 mg p.o. daily, -Patient needs close monitoring for respiratory status for possible acute decompensation requiring mechanical intubation -Corrected sodium 127-we see gradual decline- patient is polyuric-certainly osmotic diuresis due to high sugars/SIADH/Bactrim use are among differentials. Urine sodium 78, pending urine osmolality and serum osmolality. Although euvolemic hyponatremia SIADH is plausible-similar clinical picture is also seen with Bactrim induced tubular blockade of sodium reabsorption; and also the carrier fluid for Bactrim is D5 which makes hyponatremia worse, unfortunately pharmacy reported failure fluid cannot be changed to NS. Also patient is thirsty and consuming a lot of free water. Initially blood pressure was towards the soft side and I wanted to give normal saline but would rather encourage fluid restriction and salt tablets and closely monitor electrolytes. Unfortunately it is taking too long for PCP PCR to be reported-if it is negative then I would prefer to discontinue Bactrim which will help with patient's hyperglycemia and hyponatremia. -Also patient hyperkalemia 5.5 can be secondary to transcellular shifts because of high glucose levels and Bactrim prevents tubular secretion of potassium leading to severe hyperkalemia. We will monitor potassium and increase Lantus to 40 twice daily. I will send for serum ketones to rule out DKA although bicarb is 23 patient anion gap is 17. At this point of time, patient prognosis remains critical, given his chronic underlying idiopathic interstitial lung disease-currently FiO2 requirements plateaued at 45 L 70%-covered with broad-spectrum antibiotics for ??? acute bacterial infections and with steroids for ILD exacerbation. Underwent bronchoscopy 01/18/2021 and BAL from [facility] was sent for studies-results pending although has too low WBC for BAL analysis. Awaiting PCP PCR-if negative will stop Bactrim. Attestations Medical Necessity Statement*: Need hospital stay for respiratory failure requiring IV antibiotics and further evaluation of interstitial lung disease. Critical Care Time: The high probability of a clinically significant, sudden or life threatening deterioration of the patient's [pulmonary, infectious disease, fluid and electrolytes, renal] system(s) required my full and direct attention, intervention and personal management. The critical care time is as shown. This time is in addition to time spent performing any reported procedures but includes the following: [x] Data and vital sign review and interpretation [x] Patient assessment, examination and intervention [x] Documentation [x] Medication orders and management Critical Care Time (min): 45 Coding Level of Care Code Established Pt Acute Technology Coach for Chg Fwd Patient Type Established History Comprehensive Exam Comprehensive Medical Decision Making High Complexity Diagnoses Acute respiratory failure with hypoxemia J96.01 Interstitial lung disease J84.9 Pneumonia J18.9 Restrictive lung disease J98.4 Ex-smoker Z87.891 Pulmonary artery hypertension I27.21 Post-COVID syndrome B94.8 Polyuria R35.89 Hyponatremia E87.1 SANDY (acute kidney injury) N17.9 Hyperkalemia E87.5 COPD (chronic obstructive pulmonary disease) J44.9 COPD type: unspecified COPD Obstructive sleep apnea G47.33 Time Spent (min) 45
[2021-01-21] MEDS: sodium chloride 0.9% 1,000 ML 125 ML IV (09:20)
--- NOTE | 2021-01-21 09:25 | PC.SOCIAL ---
IMM Updated Page 2 of IMM updated and reviewed. Initialed, timed and dated and copy left in pts chart.
[2021-01-21] MEDS: sulfamethoxazole-trimeth inj 480 MG in dextrose 5 % 500 ML 333 MG IV ×2 (09:48→18:08)
[2021-01-21 10:07] LABS: Potassium, Radom Urine 31 mmol/L; Urine Random Chloride 59 mmol/L; Urine Random Sodium 78 mmol/L
[2021-01-21 11:25] LABS: Glucose Point of Care 345 mg/dL (70-110)
[2021-01-21] MEDS: enoxaparin 40 mg/0.4 mL Syringe SUBCUT (11:37)
[2021-01-21 12:13] LABS: Anion Gap 17.5 (5-19); Blood Urea Nitrogen 22 mg/dL (6-20); Calcium 8.8 mg/dL (8.5-10.5); Carbon Dioxide 23 mmol/L (22-29); Chloride 88 mmol/L (98-107); Creatinine Clr Calc Pharmacy 149.9985; Glomerular Filtration Rate 115.4 mL/min (90-130); Glucose 370 mg/dL (65-115); Osmolality Calculated 274 mOsm/kg (285-295); Potassium 5.5 mmol/L (3.5-5.1); Sodium 123 mmol/L (136-145)
--- NOTE | 2021-01-21 14:36 | P.PN_ITS ---
Subjective Subjective: Interval history: Patient was examined in the ICU. Patient was on heated high flow 45 L 80% saturating 88 to 89% as per the RT is also requirement was 100% at the start of the shift and it has been weaned down to 80%. Patient is endorsing feeling better at rest however gets extremely short of breath and hypoxic with conversation over the phone and minimal activities. Currently on antibacterial antifungal Polyuric for last 2 to 3 days 200 cc/h urine output Not on any diuretics Bactrim associated side effects noted Did discuss this case with engineering professionals SANDY Tachycardic Blood pressure borderline soft Normal saline started today Urine sodium greater than 40 Hyperglycemia Corrected sodium level 129 Did notice sixpacks of Dr. Ortiz at the bedside, nursing staff endorsing that patient is drinking a lot of fluids, Vitals/I&O/Wt Last Vital Signs Temp 98 F 01/21/21 03:00 Pulse 112 H 01/21/21 14:00 Resp 19 H 01/21/21 13:00 BP 104/65 01/21/21 12:00 Pulse Ox 92 01/21/21 13:00 01/20/21 01/21/21 01/21/21 22:59 06:59 14:59 Intake Total 1350 / 1980 970 / 2950 1380 / 1380 Output Total 3300 / 4200 1350 / 5550 3500 / 3500 Balance -1950 / -2220 -380 / -2600 -2120 / -2120 Physical Exam Narrative: EXAM NARRATIVE: Patient was sitting in his chair Saturating 88% on 45 L 80% heated high flow Meza catheter draining yellow urine Patient is awake and alert nonfocal exam Distended abdomen With obesity Bilateral breath sounds with crepitation at the bases Nonfocal exam S1, S2 variable Abdomen soft, distended Lower extremity no edema Patient looks euvolemic Urinary Catheter Management^: Meza: Cath Placed During This Visit: yes Reason for Continuing Indwelling Catheter: Accurate Measurement of Urinary Output in Critically Ill Patients Urinary Catheter Date of Insertion: 01/18/21 Urinary Catheter Time of Insertion: 00:05 Data : 01/21/21 04:40 01/21/21 11:08 Micro: Microbiology 01/21/21 09:30 Bacterial Antigens - Final Urine Suprapubic A&P Assessment and plan (1) Acute respiratory failure with hypoxemia: Status: Acute (2) Interstitial lung disease: Status: Acute (3) Pneumonia: Status: Acute (4) Restrictive lung disease: Status: Acute (5) Ex-smoker: Status: Acute (6) Pulmonary artery hypertension: Status: Acute (7) Post-COVID syndrome: Status: Acute (8) Polyuria: Status: Acute (9) Hyponatremia: Status: Acute (10) SANDY (acute kidney injury): Status: Acute (11) Hyperkalemia: Status: Acute Additional A&P Information Acute hypoxic respiratory failure secondary to superimposed infection with underlying pulmonary fibrosis Currently on heated high flow 45 L 80% saturating 88 to 89% Underlying pulmonary hypertension Cultures positive for yeast, identification is pending Currently on Primaxin, Bactrim, day 5, Levaquin day 3, on fluconazole Steroids 30 mg IV every 12 Patient experiences worsening hypoxia with minimal exertional activities and conversation High risk for intubation Appreciate pulmonary recommendations Hyperkalemia and hyponatremia Hyperglycemia Corrected sodium 129 Patient is polyuric putting more than 3 L without use of diuretics however received diuretic in the beginning of hospital course Concern for drug-related SIADH, Bactrim associated hyperkalemia and hyponatremia, considering polyuria and low blood pressure we will put him on normal saline for now Repeat sodium level at 5 PM Urine sodium greater than 40, current level 70 Serum and urine osmolarity pending Patient is euvolemic check renin and alddosterone, if high that will go against SIADH, Start salt tablets Hyperglycemia with underlying type 2 diabetes increase Lantus to 40 units twice a day, steroid-induced hyperglycemia SANDY No signs of acidosis, Related to polyuria and hypertension PATRICK inhibitor, discontinued Pulmonary arterial hypertension, patient did tell Dr. Boss that he was taking sildenafil for erectile dysfunction DVT prophylaxis Heparin Consistent carb diet Full code Attestations Medical Necessity Statement*: cx ICU care Time Spent in Patient Care: Greater than 35 minutes Coding Level of Care Code Acute Licensing Coordinator for [facility] Fwd Diagnoses Acute respiratory failure with hypoxemia J96.01 Interstitial lung disease J84.9 Pneumonia J18.9 Restrictive lung disease J98.4 Ex-smoker Z87.891 Pulmonary artery hypertension I27.21 Post-COVID syndrome B94.8 Polyuria R35.89 Hyponatremia E87.1 SANDY (acute kidney injury) N17.9 Hyperkalemia E87.5
--- NOTE | 2021-01-21 15:53 | PC.NURSE ---
noted spike in urine output along with increase in oral intake talked with doctor and orders noted decreased oral intake at this time
[2021-01-21 16:54] LABS: Glucose Point of Care 294 mg/dL (70-110)
[2021-01-21] MEDS: sodium chloride 1 gm Tablet PO (17:04)
[2021-01-21] MEDS: saline nasal spray 44mL Btl 1 SPRAY NASAL (17:19)
--- NOTE | 2021-01-21 17:33 | NUR.SHIFT ---
Shift Note Frequent safety and comfort rounds continue. Orders and/or nursing care completed as indicated. Patient monitored for response to intervention and treatment(s). Education provided includes[]. Patient and/or significant other aware of increase urine output and decreasing sodium levels . ]. Will continue to monitor. and limit fluid intake
[2021-01-21 18:01] LABS: Ketone (Acetest) Serum Negative (Negative)
[2021-01-21 18:07] LABS: Anion Gap 18.2 (5-19); Blood Urea Nitrogen 23 mg/dL (6-20); Carbon Dioxide 23 mmol/L (22-29); Chloride 87 mmol/L (98-107); Glomerular Filtration Rate 98.9 mL/min (90-130); Glucose 260 mg/dL (65-115); Osmolality Calculated 269 mOsm/kg (285-295); Potassium 5.2 mmol/L (3.5-5.1); Sodium 123 mmol/L (136-145)
[2021-01-21 18:14] LABS: Cortisol Random 3.91 ug/dL (2.47-19.5); Thyroid Stimulating Hormone 0.77 uIU/mL (0.27-4.20)
[2021-01-21 18:22] LABS: Urine Random Sodium 80 mmol/L
[2021-01-21 20:14] LABS: Glucose Point of Care 367 mg/dL (70-110)
[2021-01-21] MEDS: atorvastatin 40 mg Tablet 20 MG PO (20:27)
[2021-01-22] VITALS (51 sets, daily range): BP systolic 102–141; BP diastolic 63–85; PULSE 71–112; RESP 16–37; TEMP 36.5–36.8; O2SAT 85–96; BMI 36.8
[2021-01-22] MEDS: sulfamethoxazole-trimeth inj 480 MG in dextrose 5 % 500 ML 333 MG IV (02:02)
[2021-01-22] MEDS: ipratropium-albuterol 3 mL Neb INHALATION ×6 (03:26→23:25)
[2021-01-22 05:24] LABS: Basophils # 0.1 10^3/uL (0.0-0.1); Basophils % 0.2 %; Eosinophils % 0.1 %; Hemoglobin 12.8 g/dL (11.7-16.6); Lymphocytes # 1.4 10^3/uL (0.8-4.8); Lymphocytes % 6.7 %; Mean Corpuscular Hemoglobin 28.4 pg (28.0-34.0); Mean Corpuscular Volume 88.9 fl (80-94); Monocytes # 1.9 10^3/uL (0.2-0.9); Monocytes % 9.1 %; Neutrophils # 17.13 10^3/uL (1.8-7.7); Neutrophils % 82.4 %; Nucleated Red Blood Cells % 0 %; Platelet Count 327 10^3/cmm (130-400); Red Cell Distribution Width 14.7 % (12.1-15.1); White Blood Count 20.8 10^3/uL (4.0-10.0)
[2021-01-22 05:54] LABS: Blood Urea Nitrogen 19 mg/dL (6-20); Calcium 8.6 mg/dL (8.5-10.5); Carbon Dioxide 21 mmol/L (22-29); Chloride 90 mmol/L (98-107); Glomerular Filtration Rate 137.9 mL/min (90-130); Glucose 300 mg/dL (65-115); Osmolality Calculated 273 mOsm/kg (285-295); Sodium 125 mmol/L (136-145)
[2021-01-22 05:56] LABS: Anion Gap 19.1 (5-19); Potassium 5.1 mmol/L (3.5-5.1)
--- NOTE | 2021-01-22 07:32 | XRR_ITS ---
PROCEDURE INFORMATION: Exam: XR Chest Exam date and time: 01/22/2021 7:32 AM Age: 60 years old Clinical indication: Condition or disease; Lung condition and disease; Pneumonia TECHNIQUE: Imaging protocol: XR of the chest. Views: 1 view. COMPARISON: Multiple priors, most recent CR XR chest 1V portable [id number] 01/20/2021 1:07 PM FINDINGS: Lungs: Low lung volumes. There are again diffuse increased interstitial markings essentially unchanged with the exception of some interval increase at the left peripheral mid lung zone. There is again enlargement and poor definition of the hilar regions, unchanged. No focal lobar consolidation. Pleural spaces: No visible pleural effusion or pneumothorax. Heart/Mediastinum: Cardiac silhouette upper normal. Bones/joints: No acute bony abnormality appreciated. XR/XR chest 1V portable [id number] IMPRESSION: Persistent diffusely increased interstitial markings which have been present dating back to at least December 29, 2020, with some slight interval increase at the left peripheral mid lung. Findings may represent atypical pneumonia or edema superimposed on chronic interstitial lung disease. Underlying malignancy is not excluded. Radiation Dose CTDIVOL = (mGy): DLP = (mGy-cm)
[2021-01-22 07:33] LABS: Glucose Point of Care 263 mg/dL (70-110)
[2021-01-22] MEDS: insulin glargine 100 units/1 mL 40 UNIT SUBCUT ×2 (08:06→20:05)
[2021-01-22] MEDS: insulin lispro 100 unit/1 mL SUBCUT ×5 (08:06→20:05)
[2021-01-22] MEDS: sodium chloride 1 gm Tablet PO ×2 (08:07→17:16)
[2021-01-22] MEDS: baclofen 10 mg Tablet 20 MG PO ×2 (08:07→17:16)
[2021-01-22] MEDS: levoFLOXacin 750 mg Tablet PO (08:07)
[2021-01-22] MEDS: benzonatate 100 mg Capsule PO ×3 (08:07→20:05)
[2021-01-22] MEDS: pantoprazole DR 40 mg Tablet PO (08:08)
[2021-01-22] MEDS: fluconazole 100 mg Tablet 200 MG PO (08:08)
[2021-01-22] MEDS: aspirin 81 mg EC Tablet PO (08:08)
[2021-01-22] MEDS: sertraline 50 mg Tablet PO (08:08)
[2021-01-22] MEDS: acetaminophen 325 mg Tablet 650 MG PO (08:48)
[2021-01-22] MEDS: nystatin 100,000 unit/mL UDC 5 mL 500000 UNIT PO ×4 (08:48→20:02)
[2021-01-22] MEDS: sulfamethoxazole-trimeth inj 480 MG in dextrose 5 % 500 ML 353 MG IV (10:30)
--- NOTE | 2021-01-22 10:53 | P.PN_ITS ---
Subjective Subjective: Interval history: -Patient seen at bedside sitting in chair -Saturating 88 to 92% on 45 L and 80% -Plan is to see if patient tolerates ambulation -Still significantly polyuric, corrected sodium 127, potassium 5.1 -Labs and imaging reviewed Medications: Reviewed: Yes Vitals/I&O/Wt Last Vital Signs Temp 97.7 F 01/22/21 08:00 Pulse 99 01/22/21 09:00 Resp 22 H 01/22/21 08:58 BP 141/85 01/22/21 08:00 Pulse Ox 92 01/22/21 08:58 01/21/21 01/22/21 01/22/21 22:59 06:59 14:59 Intake Total 2280 / 3660 730 / 4390 355 / 355 Output Total 2200 / 5700 2750 / 8450 550 / 550 Balance 80 / -2040 -2020 / -4060 -195 / -195 Physical Exam Narrative: EXAM NARRATIVE: General: alert, mild to moderate respiratory distress on high flow nasal cannula HEENT: conj clear, EOMI, PERRL, mmm, Neck: supple, no meningismus Heme: no cervical LAP Pulmonary: CTAB, no wheezing, rhonchi, crackles Cardiovascular: rrr, nl s1s2, no mrg Abdomen: soft, nt, nd, no r/g, bs+ Extremities: pulses +, no edema, no c/c : no CVA tenderness Skin: intact, no rash MSK: no back or neck pain Neurologic: grossly intact Urinary Catheter Management^: Meza: Cath Placed During This Visit: yes Reason for Continuing Indwelling Catheter: Accurate Measurement of Urinary Output in Critically Ill Patients Urinary Catheter Date of Insertion: 01/18/21 Urinary Catheter Time of Insertion: 00:05 Data : 01/22/21 04:50 01/22/21 04:50 Micro: Microbiology 01/18/21 13:57 ADIA Preparation - Final Other Source 01/18/21 13:57 Gram Stain - Final Lung Right Middle Lobe Bronchoalveolar Lavage Culture - Final Janice albicans 01/21/21 09:30 Bacterial Antigens - Final Urine Suprapubic A&P Assessment and plan (1) Acute respiratory failure with hypoxemia: Status: Acute (2) Interstitial lung disease: Status: Acute (3) Pneumonia: Status: Acute (4) Restrictive lung disease: Status: Acute (5) Ex-smoker: Status: Acute (6) Pulmonary artery hypertension: Status: Acute (7) Post-COVID syndrome: Status: Acute (8) Polyuria: Status: Acute (9) Hyponatremia: Status: Acute (10) SANDY (acute kidney injury): Status: Acute (11) Hyperkalemia: Status: Acute (12) COPD (chronic obstructive pulmonary disease): Status: Acute Qualifiers: COPD type: unspecified COPD Qualified Code(s): J44.9 - Chronic obstructive pulmonary disease, unspecified (13) Obstructive sleep apnea: Status: Acute #Acute hypoxic respiratory failure with hypoxemia-ILD exacerbation/viral pneumonitis #Undiagnosed ILD-pretty broad differential at this point of time-NSIP/subacute OR chronic HP/CEP/AIP-progressive since 2013 based on x-rays #COPD in ex-smoker 50 pack year history quit 2004 #Group 3 pulmonary hypertension-ILD + COPD + MICHAEL # covid 19 + ve 11/14/20 2 months ago #MICHAEL on CPAP #Polyuria-secondary to osmotic diuresis/?? SIADH-osmolality is pending #Hyponatremia 123-corrected sodium to [id number] free water consumption/Bactrim induced/?? SIADH #Hyperkalemia-5.5-trend cellular shift to high glucose/Bactrim induced -Currently on 40 L 80%-saturating 92%-need close monitoring in ICU - at risk for intubation -ABG 7.4 7/32/58/23/89% on high flow 40 L 75% -Progressive ILD based on chest x-rays since 2013; recent CTD panel as out patient negative -CTA-ruled out PE but predominant reticular interstitial changes-there is mosaic pattern air bronchograms distributed in the upper and lower lobes both centrally anteriorly with no recent nodules or masses. There is some evidence of bilateral bronchiectasis in the upper lobes. This CT is not a typical UIP pattern as there is no evidence of bibasilar honeycombing and presence of extensive GGO's. 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- difficult to determine underlying cause -S/p bronchoscopy 01/18/2021 and obtained BAL from [facility] - -too-low WBC to do differential -BAL-Janice albicans; PCP, galactomannan, beta D glucan D pending -We will treat it as ILD exacerbation and recommended Solu-Medrol 40 every 8 HR - monitor sugars on this diabetic patient ; increase Lantus to 40 mg twice daily and patient on high-dose insulin coverage -So far sputum culture negative bacterial antigens negative, MRSA negative, UA negative, HIV negative, procalcitonin 0.08, pending respiratory viral panel -Although patient has no evidence of immunosuppression-received only 10 days p.o. prednisone prior to admission - given the rapidity of O2 requirement and possible PCP in immunocompetent patients-started on Bactrim and BAL PCP PCR is pending -currently on imipenem (d 6) and Levaquin 750 mg p.o.(d 4) for atypical coverage - discontinued Vancomyicn as MRSA is negative, - Other causes of GGO's on CT chest-underlying cardiac cause -but pt had negative nuclear stress testing on 12/12/2020. BNP 114, Echocardiogram 10/24/2020 did reveal 1/4 diastolic dysfunction, preserved EF, pulmonary hypertension at least moderate -repeat echo 01/17/2021 normal LV size and systolic function with EF 68% and mild LVH. No pericardial effusion. -Patient med list showed he is on sildenafil-initially presumed secondary to pulmonary hypertension (as seen on his previous problem list) but patient reported that he is using it for his ED but he does not use it often. Discontinued sildenafil -Monitor intake output, electrolytes and renal functions closely and try to keep fluid balance net negative -Continue DuoNeb nebulization every 6 hours scheduled -Patient needs close monitoring for respiratory status for possible acute decompensation requiring mechanical intubation -Corrected sodium 128-patient is polyuric-certainly osmotic diuresis due to high sugars/?? SIADH/Bactrim use are among differentials. Urine sodium 80, pending urine osmolality and serum osmolality. Although euvolemic hyponatremia SIADH is plausible-similar clinical picture is also seen with Bactrim induced tubular blockade of sodium reabsorption; and also the carrier fluid for Bactrim is D5 which makes hyponatremia worse, unfortunately pharmacy reported carrier fluid cannot be changed to NS. Also patient is thirsty and consuming a lot of free water.Encourage fluid restriction and salt tablets and closely monitor electrolytes. Unfortunately it is taking too long for PCP PCR to be reported-if it is negative then I would prefer to discontinue Bactrim which will help with patient's hyperglycemia, hyponatremia, hyperkalemia. TSH 0.77; random cortisol 3.91. -Also patient hyperkalemia 5.1 can be secondary to transcellular shifts because of high glucose levels and Bactrim prevents tubular secretion of potassium leading to severe hyperkalemia. We will monitor potassium and currently on Lantus to 40 twice daily. Serum ketones negative At this point of time, patient prognosis remains critical, given his chronic underlying idiopathic interstitial lung disease-currently FiO2 requirements plateaued at 45 L 80%-covered with broad-spectrum antibiotics for ??? acute bacterial infections and with steroids for ILD exacerbation. Underwent bronchoscopy 01/18/2021 and BAL from [facility] was sent for studies-results pending although has too low WBC for BAL analysis. Awaiting PCP PCR-if negative will stop Bactrim. - Once patient recovers from this acute episode, Patient needs surgical lung bi opsy for definitive diagnosis as transbronchial biopsy yield is low. Patient respiratory status has plateaued for last 1 week requiring high flow oxygen and gradually worsening day by day. If patient continues to worsen-patient may be intubated and would benefit from ECMO as bridge to lung transplant. And so I would recommend to transfer patient to higher center for lung transplant evaluation in this patient with idiopathic interstitial lung disease requiring high amounts of oxygen Attestations Medical Necessity Statement*: Need hospital stay for respiratory failure requiring IV antibiotics and further evaluation of interstitial lung disease. Time Spent in Patient Care: Greater than 35 minutes (>than 50% of time spent in counselling and/or direct pt care on unit) . Critical Care Time: The high probability of a clinically significant, sudden or life threatening deterioration of the patient's [pulmonary, infectious disease, fluid and electrolytes, renal] system(s) required my full and direct attention, intervention and personal management. The critical care time is as s hown. This time is in addition to time spent performing any reported procedures but includes the following: [x] Data and vital sign review and interpretation [x] Patient assessment, examination and intervention [x] Documentation [x] Medication orders and management Critical Care Time (min): 38 Coding Level of Care Code Established Pt Acute Pediatric Physical Therapy Assistant for Mateo Fwd Patient Type Established History Comprehensive Exam Comprehensive Medical Decision Making High Complexity Diagnoses Acute respiratory failure with hypoxemia J96.01 Interstitial lung disease J84.9 Pneumonia J18.9 Restrictive lung disease J98.4 Ex-smoker Z87.891 Pulmonary artery hypertension I27.21 Post-COVID syndrome B94.8 Polyuria R35.89 Hyponatremia E87.1 SANDY (acute kidney injury) N17.9 Hyperkalemia E87.5 COPD (chronic obstructive pulmonary disease) J44.9 COPD type: unspecified COPD Obstructive sleep apnea G47.33 Time Spent (min) 38
[2021-01-22 11:23] LABS: Glucose Point of Care 241 mg/dL (70-110)
[2021-01-22] MEDS: enoxaparin 40 mg/0.4 mL Syringe SUBCUT (11:24)
[2021-01-22 12:05] LABS: ABG PCO2 33.9 mmHg (35-45); ABG PH Result 7.45 (7.35-7.45); Alveolar-Arterial Oxygen Gradi 52.5 mmHg (5-10); Arterial Blood Gas Hematocrit 40.9 % (42-52); Base Excess ABG 0.2 mmol/L (-2.0-2.0); Blood Gas Allen Test Pos; Blood Gas Operator Identificat CAK; Blood Gas Sample Site Radial, left; Blood Gas Sample Type Arterial; HCO3 ABG 23.7 mmol/L (22-26); HGB O2 Sat 94.7 % (95-100); Ionized Calcium Level - ABG 1.2 mmol/L (1.1-1.4); Methemoglobin 0.9 % (0.4-1.5); Oxygen Device HAG; Oxygen Saturation ABG 96.6; PO2 ABG 83.7 mmHg (80.0-100.0); Potassium Level - ABG 5.6 mmol/L (3.5-5.0); Total Hemoglobin 13.4 g/dL (14-18)
[2021-01-22] MEDS: HYDROcodone-acetaminophen 10-325 mg Tablet 1 TAB PO ×2 (12:32→20:04)
--- NOTE | 2021-01-22 13:29 | PC.NURSE ---
A Stokers chewing tobacco container was in the patient belongings on top if patient's personal items. Educated the patient that this is a tobacco free hospital. Educated that a nicotine patch can be ordered. The patient declined the patch. Educated that if the patient starts to get a headache or feel withdrawal from nicotine that the nurse can talk with the doctor to get something ordered. Offered to store the tobacco until a family member can get it or can be returned upon discharged. The patient stated, You can throw it in the dam trash. I don't care . Offered to call Bia to see if she wants to take the tobacco. She stated, just throw it away . Offered to update Bia on the condition of the patient. Bia did not say that she wanted an update. Bia instead asked if her 18 year old daughter can visit and stated that the daughter is deaf. Bia added that the patient and daughter can not communicate and asked if she can visit as well to translate. Informed Bia that they can visit for 30 min. Offered to update Bia about patient but she decline again.
--- NOTE | 2021-01-22 13:39 | PM.PN ---
Subjective Subjective: Interval history: Polyuria more than 5 L urine output Sodium 125 he did receive normal saline for about 2 to 3 hours which was discontinued by settlement technician Patient is endorsing feeling better at rest however gets extremely short of breath on ambulation Currently on heated high flow 70%, 40 L, Requested complex case manager to look for LTAC [employer] Consultant also want to screen him for lung transplant, will touch base with [facility] settlement technician Fungal culture came back positive for Janice albicans,, most likely commensal infection [employer] Consultant is planning to complete 7 days of antibiotics and then discontinue PT evaluation today Patient has severe interstitial lung disease, suffered from COVID-19 infection back in November, he started seeing email marketing intern 10 days before his arrival in the ER, he is not improving currently on heated high flow, will touch base with [facility] for evaluation of lung transplant and interim ECMO, will benefit from surgical lung biopsy? Currently on steroids and broad-spectrum antibiotics and antifungal, PCP pneumonia studies pending EF 68% Vitals/I&O/Wt Last Vital Signs Temp 98.2 F 01/22/21 12:00 Pulse 88 01/22/21 12:09 Resp 18 01/22/21 12:09 BP 113/78 01/22/21 12:00 Pulse Ox 92 01/22/21 12:09 01/21/21 01/22/21 01/22/21 22:59 06:59 14:59 Intake Total 2280 / 3660 730 / 4390 1402 / 1402 Output Total 2200 / 5700 2750 / 8450 550 / 550 Balance 80 / -2040 -2020 / -4060 852 / 852 Physical Exam Narrative: EXAM NARRATIVE: Patient is saturating well on heated high flow 70% 40 L, bilateral breath sounds with crepitation at the bases Morbidly obese Meza catheter draining urine S1, S2 Nonfocal neuro exam Abdomen soft distended with obesity No sign of cellulitis Rapid mood and affect Urinary Catheter Management^: Meza: Cath Placed During This Visit: yes Reason for Continuing Indwelling Catheter: Accurate Measurement of Urinary Output in Critically Ill Patients Urinary Catheter Date of Insertion: 01/18/21 Urinary Catheter Time of Insertion: 00:05 Data : 01/22/21 04:50 01/22/21 04:50 Micro: Microbiology 01/18/21 13:57 ADIA Preparation - Final Other Source 01/18/21 13:57 Gram Stain - Final Lung Right Middle Lobe Bronchoalveolar Lavage Culture - Final Janice albicans 01/21/21 09:30 Bacterial Antigens - Final Urine Suprapubic A&P Assessment and plan (1) Hyperkalemia: Status: Acute (2) SANDY (acute kidney injury): Status: Acute (3) Hyponatremia: Status: Acute (4) Polyuria: Status: Acute (5) Acute respiratory failure with hypoxemia: Status: Acute (6) Interstitial lung disease: Status: Acute (7) Restrictive lung disease: Status: Acute (8) COPD (chronic obstructive pulmonary disease): Status: Acute Qualifiers: COPD type: unspecified COPD Qualified Code(s): J44.9 - Chronic obstructive pulmonary disease, unspecified (9) Ex-smoker: Status: Acute (10) Post-COVID syndrome: Status: Acute (11) Obstructive sleep apnea: Status: Acute (12) HTN (hypertension): Status: Acute (13) Exertional dyspnea: Status: Acute Additional A&P Information Acute hypoxic respiratory failure Underlying severe interstitial lung disease Culture positive for Janice Concern for pulmonary hypertension Post Covid To finish 7 days of antibiotics, PCP pneumonia PCR is pending, currently on Bactrim every 48 hour 10 days of antifungal Keep him on IV steroids because of interstitial lung disease Currently on heated high flow 70%, 40 L, has not shown significant improvement We will touch base with [facility] team for evaluation of lung transplant Also updated complex case manager to look for LTAC No signs of PE Hyperkalemia: Improved Hyponatremia: Waiting on renin, aldosterone level, urine sodium greater than 40, patient looks euvolemic, polyuric, sodium 125 corrected sodium 129 Bactrim induced electrolyte imbalance versus SIADH [employer] Consultant did give him normal saline for about 2 to 3 hours and then discontinued, Started salt tablets yesterday 1 g twice a day No active neurological deficit Urine and serum osmolarity pending Hyperglycemia, steroid-induced with underlying type 2 diabetes, increase sliding scale to high intensity Will use scheduled premeal insulin Pulmonary hypertension: Patient does not use any medication at home sildenafil uses watch for rectal dysfunction, currently on steroids Consistent carb diet DVT prophylaxis Lovenox Full code Attestations Medical Necessity Statement*: Continue ICU management Time Spent in Patient Care: 16 - 35 minutes Coding Level of Care Code Acute Franchise Sales Representative for Mateo Small Diagnoses Hyperkalemia E87.5 SANDY (acute kidney injury) N17.9 Hyponatremia E87.1 Polyuria R35.89 Acute respiratory failure with hypoxemia J96.01 Interstitial lung disease J84.9 Restrictive lung disease J98.4 COPD (chronic obstructive pulmonary disease) J44.9 COPD type: unspecified COPD Ex-smoker Z87.891 Post-COVID syndrome B94.8 Obstructive sleep apnea G47.33 HTN (hypertension) I10 Exertional dyspnea R06.00
[2021-01-22] MEDS: LORazepam 2 mg/mL INJ 1 mL 0.5 MG IVP (14:19)
--- NOTE | 2021-01-22 14:27 | PC.NURSE ---
Patient ambulated to the end of the nurses station with the aid of respiratory and nurse. Patient had non-rebreather on during ambulation. Patient stated that he as short of breath and anxious. Administered Ativan for anxiety.
[2021-01-22 15:48] LABS: Adenovirus Not Detected (Not Detected); Human Metapneumovirus Not Detected (Not Detected); Human Parainflu Virus 1 Not Detected (Not Detected); Human Parainflu Virus 2 Not Detected (Not Detected); Human Parainflu Virus 3 Not Detected (Not Detected); Human Rsv A Not Detected (Not Detected); Influenza A Not Detected (Not Detected); Influenza B Not Detected (Not Detected); Rhinovirus/Enterovirus Not Detected (Not Detected)
[2021-01-22] MEDS: lanolin oint 7 gm 1 APPLIC TOPICAL (16:00)
[2021-01-22] MEDS: sulfamethoxazole-trimeth DS 160-800 mg Tablet 1 TAB PO (17:16)
[2021-01-22 17:42] LABS: Glucose Point of Care 321 mg/dL (70-110)
--- NOTE | 2021-01-22 18:50 | PC.NURSE ---
Shift Note Frequent safety and comfort rounds continue. Orders and/or nursing care completed as indicated. Patient monitored for response to intervention and treatment(s). Education provided includes medication, activity plan, disease process, and treatment plan. Patient and/or event marketing representative verbalized understanding. Family came to visit patient. Patient ambulated twice from room to the doors of room 3. Patient sat on chair all day long. Patient watched TV all day long. Patient had 1,875 out in urine.
[2021-01-22 19:45] LABS: Glucose Point of Care 357 mg/dL (70-110)
[2021-01-22] MEDS: atorvastatin 40 mg Tablet 20 MG PO (20:05)
[2021-01-23] VITALS (102 sets, daily range): BP systolic 99–145; BP diastolic 53–89; PULSE 71–121; RESP 14–39; TEMP 36.4–36.9; O2SAT 80–96; BMI 36.8
[2021-01-23] MEDS: guaiFENesin-dextromethorphan UDC 10 mL 5 ML PO (02:58)
[2021-01-23] MEDS: ipratropium-albuterol 3 mL Neb INHALATION ×5 (03:16→20:14)
--- NOTE | 2021-01-23 03:44 | PC.NURSE ---
Addendum entered by Britt Hatfield RN 01/23/21 06:17: Pt up to bedside commode, than to chair, SpOx dropped to 71%, it took several minutes to recover. Addendum entered by Britt Hatfield RN 01/23/21 04:55: Pt coughed up large brown mucous plug Original Note: Shift Note Frequent safety and comfort rounds continue. Orders and/or nursing care completed as indicated. Patient monitored for response to intervention and treatment(s). Education provided includes medications with side effect, S/S to report, fall safety, oxygen safety, treatment goals. Patient verbalized understanding of education with return demonstration. Pt had frequent non-productive cough, with SpOx dropping to 80%, increased SOB and it was becoming increasingly difficult to recover. New order of cough medication given and RT notified. Heated high flow managed by RT, it was adjusted to maintain SpOx >88%. Will continue to monitor.
[2021-01-23 04:35] LABS: Basophils # 0.1 10^3/uL (0.0-0.1); Basophils % 0.3 %; Eosinophils % 0.1 %; Hematocrit 39.8 % (42.0-52.0); Hemoglobin 13.5 g/dL (11.7-16.6); Lymphocytes # 1.1 10^3/uL (0.8-4.8); Lymphocytes % 5.4 %; Mean Corpuscular HGB Conc 33.9 g/dL (30.0-36.0); Mean Corpuscular Volume 85.6 fl (80-94); Mean Platelet Volume 9.7 fL (7.4-10.4); Monocytes % 5.3 %; Neutrophils % 86.5 %; Nucleated Red Blood Cells % 0 %; Platelet Count 362 10^3/cmm (130-400); Red Blood Count 4.65 10^6/uL (4.1-5.3); Red Cell Distribution Width 14.6 % (12.1-15.1); White Blood Count 19.5 10^3/uL (4.0-10.0)
[2021-01-23 05:05] LABS: Anion Gap 16.5 (5-19); Blood Urea Nitrogen 19 mg/dL (6-20); Calcium 8.9 mg/dL (8.5-10.5); Carbon Dioxide 24 mmol/L (22-29); Chloride 92 mmol/L (98-107); Glomerular Filtration Rate 115.4 mL/min (90-130); Glucose 257 mg/dL (65-115); Osmolality Calculated 275 mOsm/kg (285-295); Potassium 5.5 mmol/L (3.5-5.1); Sodium 127 mmol/L (136-145)
[2021-01-23 06:34] LABS: Glucose Point of Care 275 mg/dL (70-110)
[2021-01-23] MEDS: insulin lispro 100 unit/1 mL SUBCUT ×7 (06:43→20:30)
[2021-01-23 07:35] LABS: Glucose Point of Care 301 mg/dL (70-110)
--- NOTE | 2021-01-23 07:37 | PM.PN ---
Subjective Subjective: Interval history: Seen and examined this morning. Discussed case with Dr. Sahu as well. Patient in good spirits today. He is sitting up in a recliner on high flow. He states he had a bad night. He also coughed up a mucous plug and did desaturate overnight. He is on 70% FiO2 and 45 L today. We did update the patient's weight and BMI today. We also talked about LTAC. Case management working to find placement. Vitals/I&O/Wt Last Vital Signs Temp 98.3 F 01/23/21 04:00 Pulse 88 01/23/21 06:00 Resp 28 H 01/23/21 05:00 BP 113/66 01/23/21 05:00 Pulse Ox 91 01/23/21 05:00 01/22/21 01/23/21 01/23/21 22:59 06:59 14:59 Intake Total 518 / 1965 318 / 2283 Output Total 1350 / 2525 1825 / 4350 Balance -832 / -560 -1507 / -2067 Weight last 48 hrs Weight 116.483 kg Physical Exam Narrative: EXAM NARRATIVE: General: Alert oriented x3, patient seen sitting up in recliner on high flow nasal cannula,obese male. HEENT: Normocephalic, atraumatic, EOMI, breathing 70% FiO2, 45 L. Cardio: Regular rate rhythm, normal S1-S2, no murmurs rubs gallops, Respiratory: Good bilateral air entry, no wheezes no rhonchi appreciated. However there are crepitus sounds at the bases bilaterally. GI: Abdomen soft, nontender, nondistended, bowel sounds + Behavior: Appropriate and cooperative Extremities: no edema, no cyanosis Urinary Catheter Management^: Meza: Cath Placed During This Visit: yes Reason for Continuing Indwelling Catheter: Accurate Measurement of Urinary Output in Critically Ill Patients Urinary Catheter Date of Insertion: 01/18/21 Urinary Catheter Time of Insertion: 00:05 Data : 01/23/21 04:00 01/23/21 04:00 Micro: Microbiology 01/17/21 18:17 Blood Culture - Final Blood NO GROWTH AFTER 5 DAYS 01/17/21 18:09 Blood Culture - Final Blood NO GROWTH AFTER 5 DAYS A&P Assessment and plan (1) Hyperkalemia: Status: Acute (2) SANDY (acute kidney injury): Status: Acute (3) Hyponatremia: Status: Acute (4) Polyuria: Status: Acute (5) Acute respiratory failure with hypoxemia: Status: Acute (6) Interstitial lung disease: Status: Acute (7) COPD (chronic obstructive pulmonary disease): Status: Acute Qualifiers: COPD type: unspecified COPD Qualified Code(s): J44.9 - Chronic obstructive pulmonary disease, unspecified (8) Pulmonary artery hypertension: Status: Acute (9) HTN (hypertension): Status: Acute (10) Hyperlipidemia: Status: Acute (11) Obstructive sleep apnea: Status: Acute (12) Diabetes mellitus: Status: Acute Additional A&P Information Interstitial lung disease exacerbation Acute hypoxic respiratory failure, on heated high flow History of pulmonary hypertension. History of COPD History of recent Covid. Echocardiogram 10/24/2020 did reveal 1/4 diastolic dysfunction, preserved EF, pulmonary hypertension at least moderate -repeat echo 01/17/2021 normal LV size and systolic function with EF 68% and mild LVH. No pericardial effusion. S/p bronchoscopy 01/18/2021 and obtained BAL from [facility] - -too-low WBC to do differential -BAL-Janice albicans; PCP, galactomannan, beta D glucan D pending Sputum culture positive for Janice. PCP pneumonia PCR is pending, currently on Bactrim every 48 hour. Once PCP pneumonia PCR results and if negative we will discontinue Bactrim. Vancomycin discontinued, MRSA nares is negative. Continue fluconazole 200 mg daily x10 days total. Continue methylprednisolone 40 mg every 8 hours. Imipenem day 7 today. Levaquin day 5. Currently on heated high flow 70%, 45 L, has not shown significant improvement [facility] was contacted by Dr. Davis. At this time patient is not a candidate for lung transplant due to his high BMI. Their cut off for BMI is 31. Discussed case with Dr. Oro this morning. Plan would be to send the patient to LTAC. However if his oxygen requirements continue to worse he will have to be intubated. Patient is aware of the plan and on board. Pulmonology on board. We will continue to follow recommendations. Hyperkalemia: Potassium 5.5 this morning. I did give patient dextrose, insulin, Kayexalate, calcium gluconate x1. Will repeat BMP in evening. Hyponatremia, possibly Bactrim induced: Waiting on renin, aldosterone level, urine sodium greater than 40, patient looks euvolemic, polyuric, sodium 130 today. Improving slightly. Bactrim induced electrolyte imbalance versus SIADH. Further lab is pending. We will continue salt tablet for now. No active neurological deficit Urine and serum osmolarity pending Hyperglycemia, steroid-induced with underlying type 2 diabetes, increase sliding scale to high intensity Will use scheduled premeal insulin Pulmonary hypertension: Patient does not use any medication at home sildenafil uses watch for erectile dysfunction, currently on steroids Consistent carb diet DVT prophylaxis Lovenox Full code Attestations Medical Necessity Statement*: Needs close monitoring in ICU. Still requires high amount of oxygen. Time Spent in Patient Care: 16 - 35 minutes Coding Level of Care Code Acute Education Reporter for Mateo Small Diagnoses Hyperkalemia E87.5 SANDY (acute kidney injury) N17.9 Hyponatremia E87.1 Polyuria R35.89 Acute respiratory failure with hypoxemia J96.01 Interstitial lung disease J84.9 COPD (chronic obstructive pulmonary disease) J44.9 COPD type: unspecified COPD Pulmonary artery hypertension I27.21 HTN (hypertension) I10 Hyperlipidemia E78.5 Obstructive sleep apnea G47.33 Diabetes mellitus E11.9
[2021-01-23] MEDS: insulin regular-human 10 UNIT in SYRINGE 1 EACH IVP ×2 (08:11→21:10)
[2021-01-23] MEDS: dextrose 50% syringe 50 mL IVP (08:11)
[2021-01-23] MEDS: calcium gluconate 0.1 gm/mL 10% SDV 10mL 1 GM IVP (08:11)
[2021-01-23] MEDS: nystatin 100,000 unit/mL UDC 5 mL 500000 UNIT PO ×4 (08:12→20:30)
[2021-01-23] MEDS: aspirin 81 mg EC Tablet PO (08:12)
[2021-01-23] MEDS: sodium chloride 1 gm Tablet PO ×2 (08:12→17:04)
[2021-01-23] MEDS: levoFLOXacin 750 mg Tablet PO (08:12)
[2021-01-23] MEDS: fluconazole 100 mg Tablet 200 MG PO (08:12)
[2021-01-23] MEDS: benzonatate 100 mg Capsule PO ×3 (08:12→20:30)
[2021-01-23] MEDS: sertraline 50 mg Tablet PO (08:13)
[2021-01-23] MEDS: pantoprazole DR 40 mg Tablet PO (08:13)
[2021-01-23] MEDS: sulfamethoxazole-trimeth DS 160-800 mg Tablet 1 TAB PO ×2 (08:13→17:04)
[2021-01-23] MEDS: sodium polystyrene sulfonate 15 gm/60 mL Btl PO (08:15)
[2021-01-23] MEDS: insulin glargine 100 units/1 mL 40 UNIT SUBCUT ×2 (08:15→20:29)
[2021-01-23] MEDS: baclofen 10 mg Tablet 20 MG PO ×2 (08:27→17:04)
--- NOTE | 2021-01-23 09:16 | PC.NURSE ---
Pt sitting up in chair in room. Meds given to decrease K levels. BSC placed near pt. Remains on HHFNC at 45L/70%. Denies any needs. Urine draining freely to BSD. AAOx4, makes all needs known. Will monitor.
--- NOTE | 2021-01-23 09:47 | PC.CHAP ---
Pastoral Care Encounter/Spiritual Assessment Type of Contact [] Declined chief program officer visit [] Patient/Family/Request visit [] Outpatient visit [] Follow-up visit [] Physician referral [] Code/Alert [x] Routine visit [] Staff referral [] Actively dying [] Patient sleeping [] Family support [] [] Out of room [] Palliative care [] [x] Receiving care in room [] Pre-surgical visit [] Trauma [] Long length of stay [x] ICU visit [] Other: Relational/Emotional Strength [] Patient feels connected with others/family/visitors/staff [] Distress [] Loneliness/isolation [] Abandonment Spirituality of Patient [] Person of Anneliese [] Attends Anglican of their Anneliese [] Believes in Prayer [] Reads Bible or Mu-Ism materials [] There are Spiritual issues to be addressed Stonecutter Interventions [x] Prayer [] Active listening [] Non-anxious presence [] Spiritual/emotional support [] Crisis/trauma care [] Spiritual counseling [] Bereavement support [] Provided bereavement packet [] Provided Bible/devotional materials [] Provided toy/stuffed animal, coloring book to patient or family member [] Provided Communion [] Anointing/[place] [] Salvation [x] Completed spiritual assessment [] Other: Impact on Illness or Injury [] Angry [] Fearful [] Anxious [] Often cries [] Exhaustion [] Unable to work [] Unable to attend sabianism [] Unable to walk/stand [] Unable to read [] Unable to drive [] Unable to eat/drink [] Unable to sleep [] Unable to be with family [] Patient intubated [] Other: Summary Time spent with patient
[2021-01-23 11:12] LABS: Glucose Point of Care 260 mg/dL (70-110)
[2021-01-23] MEDS: enoxaparin 40 mg/0.4 mL Syringe SUBCUT (11:14)
--- NOTE | 2021-01-23 15:20 | PC.NURSE ---
Pt walked approximately 80 ft in unit with NRB in place. O2 sat dropped down to 69% while ambulating. Recovered in room on HHFNC and NRB. O2 sat up to 90%. NRB removed. Pt on HHFNC, recovering well. All other VSS, will monitor.
[2021-01-23 16:27] LABS: Osmolality Urine 733 mOsm/kg (50-1200)
[2021-01-23 16:27] LABS: Osmolality Serum 288 mOsm/kg (278-305)
[2021-01-23 16:36] LABS: Potassium 5.8 mmol/L (3.5-5.1)
[2021-01-23] MEDS: HYDROcodone-acetaminophen 10-325 mg Tablet 1 TAB PO (17:07)
[2021-01-23 17:11] LABS: Glucose Point of Care 283 mg/dL (70-110)
--- NOTE | 2021-01-23 18:02 | PC.NURSE ---
Shift Note Frequent safety and comfort rounds continue. Orders and/or nursing care completed as indicated. Patient monitored for response to intervention and treatment(s). Education provided includes treatment plan, medications, oxygen therapy and ambulation. Pt verbalizes understanding. Sitting up in chair in room on HHFNC at 45L/60%. No c/o SOB while sitting. SOB upon exertion. Meza draining freely to BSD. Makes all needs known, VSS. Will continue to monitor.
[2021-01-23 18:27] LABS: Aspergillus AG,EIA NOT DETECTED; Aspergillus AG,EIA, Index <0.50
--- NOTE | 2021-01-23 18:52 | P.PN_ITS ---
Subjective Subjective: Interval history: -Patient seen at bedside today, sitting out of bed to chair -Saturating 93% on 40L 70%-later down to 60% -Complaint he feels tired -Labs and imaging reviewed Medications: Reviewed: Yes Vitals/I&O/Wt Last Vital Signs Temp 97.8 F 01/23/21 17:00 Pulse 103 H 01/23/21 17:15 Resp 18 01/23/21 17:15 BP 114/78 01/23/21 17:00 Pulse Ox 88 L 01/23/21 17:15 01/23/21 01/23/21 01/23/21 06:59 14:59 22:59 Intake Total 318 / 2283 580.1 / 580.1 600 / 1180.1 Output Total 1825 / 4350 800 / 800 Balance -1507 / -2067 -219.9 / -219.9 600 / 380.1 Weight last 48 hrs Weight 256 lb 8 oz Weight 256 lb 12.8 oz Physical Exam Narrative: EXAM NARRATIVE: General: alert, mild to moderate respiratory distress on high flow nasal cannula HEENT: conj clear, EOMI, PERRL, mmm, Neck: supple, no meningismus Heme: no cervical LAP Pulmonary: CTAB, no wheezing, rhonchi, crackles Cardiovascular: rrr, nl s1s2, no mrg Abdomen: soft, nt, nd, no r/g, bs+ Extremities: pulses +, no edema, no c/c : no CVA tenderness Skin: intact, no rash MSK: no back or neck pain Neurologic: grossly intact Urinary Catheter Management^: Meza: Cath Placed During This Visit: yes Reason for Continuing Indwelling Catheter: Accurate Measurement of Urinary Output in Critically Ill Patients Urinary Catheter Date of Insertion: 01/18/21 Urinary Catheter Time of Insertion: 00:05 Data : 01/23/21 04:00 01/23/21 15:50 Other Labs: Laboratory Results WBC 19.5 10^3/uL (4.0-10.0) H 01/23/21 04:00 RBC 4.65 10^6/uL (4.1-5.3) 01/23/21 04:00 Hgb 13.5 g/dL (11.7-16.6) 01/23/21 04:00 Hct 39.8 % (42.0-52.0) L 01/23/21 04:00 MCV 85.6 fl (80-94) 01/23/21 04:00 MCH 29.0 pg (28.0-34.0) 01/23/21 04:00 MCHC 33.9 g/dL (30.0-36.0) D 01/23/21 04:00 RDW 14.6 % (12.1-15.1) 01/23/21 04:00 Plt Count 362 10^3/cmm (130-400) 01/23/21 04:00 MPV 9.7 fL (7.4-10.4) 01/23/21 04:00 Neut % (Auto) 86.5 % 01/23/21 04:00 Lymph % (Auto) 5.4 % 01/23/21 04:00 [place] % (Auto) 5.3 % 01/23/21 04:00 Eos % (Auto) 0.1 % 01/23/21 04:00 Baso % (Auto) 0.3 % 01/23/21 04:00 Neut # (Auto) 16.90 10^3/uL (1.8-7.7) H 01/23/21 04:00 Lymph # (Auto) 1.1 10^3/uL (0.8-4.8) 01/23/21 04:00 [place] # (Auto) 1.0 10^3/uL (0.2-0.9) H 01/23/21 04:00 Eos # (Auto) 0.0 10^3/uL (0.0-0.8) 01/23/21 04:00 Baso # (Auto) 0.1 10^3/uL (0.0-0.1) 01/23/21 04:00 Nucleated RBC % (auto) 0 % 01/23/21 04:00 Nucleated RBCs # 0.0 /100WBC 01/23/21 04:00 ESR 53 mm/hr (0-10) H 01/18/21 03:38 D-Dimer 4.27 ug/mIFEU (0-0.59) H 01/20/21 17:29 Specimen Type Arterial 01/22/21 11:53 Sample Site Radial, left 01/22/21 11:53 ABG pH 7.45 (7.35-7.45) 01/22/21 11:53 ABG pCO2 33.9 mmHg (35-45) L 01/22/21 11:53 ABG pO2 83.7 mmHg (80.0-100.0) 01/22/21 11:53 ABG HCO3 23.7 mmol/L (22-26) 01/22/21 11:53 ABG O2 Saturation 96.6 01/22/21 11:53 ABG Base Excess 0.2 mmol/L (-2.0-2.0) 01/22/21 11:53 Jorden Test Pos 01/22/21 11:53 A-a O2 Gradient 52.5 mmHg (5-10) H 01/22/21 11:53 Hematocrit 40.9 % (42-52) L 01/22/21 11:53 Hgb O2 Saturation 94.7 % (95-100) L 01/22/21 11:53 Carboxyhemoglobin 1.0 %THgb (0.4-20.1) 01/22/21 11:53 Methemoglobin 0.9 % (0.4-1.5) 01/22/21 11:53 Total Hemoglobin 13.4 g/dL (14-18) L 01/22/21 11:53 Sodium 124.0 mmol/L (131-143) L 01/22/21 11:53 Potassium 5.6 mmol/L (3.5-5.0) H 01/22/21 11:53 Glucose 312.0 mg/dL (70-115) H 01/22/21 11:53 Ionized Calcium 1.2 mmol/L (1.1-1.4) 01/22/21 11:53 O2 Delivery Device Hag 01/22/21 11:53 O2 Liters/Min 40.0 % 01/22/21 11:53 FiO2 75.0 % 01/22/21 11:53 Nurse Substance Abuse ID Cak 01/22/21 11:53 Sodium 127 mmol/L (136-145) L 01/23/21 04:00 Potassium 5.8 mmol/L (3.5-5.1) H 01/23/21 15:50 Chloride 92 mmol/L (98-107) L 01/23/21 04:00 Carbon Dioxide 24 mmol/L (22-29) 01/23/21 04:00 Anion Gap 16.5 (5-19) 01/23/21 04:00 BUN 19 mg/dL (6-20) 01/23/21 04:00 Creatinine 0.7 mg/dL (0.7-1.2) 01/23/21 04:00 GFR Calculation 115.4 mL/min (90-130) 01/23/21 04:00 Glucose 257 mg/dL (65-115) H 01/23/21 04:00 POC Glucose 283 mg/dL (70-110) H 01/23/21 16:59 Serum Osmolality 288 mOsm/kg (278-305) 01/20/21 10:00 Calculated Osmolality 275 mOsm/kg (285-295) L 01/23/21 04:00 Lactic Acid 3.0 mmol/L (0.5-2.2) H 01/16/21 07:15 Lactic Acid (Sepsis) 1.9 mmol/L (0.5-2.2) 01/16/21 10:17 Calcium 8.9 mg/dL (8.5-10.5) 01/23/21 04:00 Total Bilirubin 0.4 mg/dL (0.15-1.2) 01/21/21 04:40 AST 8 U/L (0-40) 01/21/21 04:40 ALT 12 U/L (0-41) 01/21/21 04:40 Alkaline Phosphatase 94 IU/L (40-130) 01/21/21 04:40 Troponin T Baseline 8 ng/L (0-15) 01/16/21 07:15 Troponin T 120 Minute 7.41 ng/L (0-15) 01/16/21 09:05 Delta Troponin T -0.59 ABS# (0-10) L 01/16/21 09:05 Troponin T Hi Sens 6Hr 6.30 ng/L (0-15) 01/16/21 13:16 Troponin T Hi Sens 6Hr Delta -1.70 ng/L (0-12) L 01/16/21 13:16 C-Reactive Protein 92.5 mg/L (0.0-4.9) H 01/18/21 03:38 NT-Pro-B Natriuret Pep 114 pg/mL (0-125) 01/16/21 07:15 Total Protein 7.4 g/dL (6.6-8.7) 01/21/21 04:40 Albumin 3.3 g/dL (3.5-5.2) L 01/21/21 04:40 Globulin 4.1 g/dL (1.3-4.6) 01/21/21 04:40 Procalcitonin 0.08 ng/mL (0-0.5) 01/17/21 06:00 TSH 0.77 uIU/mL (0.27-4.20) 01/21/21 17:13 Random Cortisol 3.91 ug/dL (2.47-19.5) 01/21/21 17:13 Urine Color Yellow (Yellow) 01/16/21 09:36 Urine Appearance Clear (CLEAR) 01/16/21 09:36 Urine pH 5 (5-7) 01/16/21 09:36 Ur Specific Levasy 1.015 (1.005-1.030) 01/16/21 09:36 Urine Protein Neg (Negative) 01/16/21 09:36 Urine Glucose (UA) Norm (Normal) 01/16/21 09:36 Urine Ketones Negative (Negative) 01/16/21 09:36 Urine Blood Neg (Negative) 01/16/21 09:36 Urine Nitrate Negative (Negative) 01/16/21 09:36 Urine Bilirubin Neg (Negative) 01/16/21 09:36 Urine Urobilinogen Norm mg/dL (Negative) 01/16/21 09:36 Ur Leukocyte Esterase Negative (Negative) 01/16/21 09:36 Urine RBC None /hpf (0-2) 01/16/21 09:36 Urine WBC Rare /hpf (0-5) 01/16/21 09:36 Ur Squamous Epith Cells Rare /hpf (0-5) 01/16/21 09:36 Amorphous Sediment Not Reportable 01/16/21 09:36 Urine Bacteria None /hpf (NONE) 01/16/21 09:36 Urine Osmolality 733 mOsm/kg (50-1200) 01/20/21 11:10 Ur Random Sodium 80 mmol/L 01/21/21 17:15 Ur Random Potassium 31 mmol/L 01/21/21 09:30 Ur Random Chloride 59 mmol/L 01/21/21 09:30 RSV Nasal Swab Not detected (Not Detected) 01/17/21 18:45 RSV Nasal Swab Int Cntl Not detected (Not Detected) 01/17/21 18:45 Bronch Specimen Source Right middle lobe 01/18/21 13:57 Bronchial Fluid Color Red 01/18/21 13:57 Bronchial Fluid Appearance Bloody (CLEAR) 01/18/21 13:57 Bronchial Fluid WBC 10 /uL 01/18/21 13:57 Bronchial Fluid RBC 0 10^3/uL 01/18/21 13:57 Bronch Cells Counted TNP 01/18/21 13:57 Serum Ketones Negative (Negative) 01/21/21 17:13 Adenovirus (PCR) Not detected (Not Detected) 01/17/21 18:45 Nasal/Oral COVID-19 PCR Not detected 01/17/21 17:45 HIV 1&2 Ab & HIV 1 Ag Non-reactive (Non-Reactiv) 01/17/21 06:00 HIV 1&2 Antibody Non-reactive (Non-Reactiv) 01/17/21 06:00 Human Metapneumovir PCR Not detected (Not Detected) 01/17/21 18:45 Influenza A (RT-PCR) Not detected (Not Detected) 01/17/21 18:45 Influenza A (H1) PCR Not detected (Not Detected) 01/17/21 18:45 Influenza A (H3) PCR Not detected (Not Detected) 01/17/21 18:45 Influenza B (RT-PCR) Not detected (Not Detected) 01/17/21 18:45 Parainfluenzae Type 1 Not detected (Not Detected) 01/17/21 18:45 Parainfluenzae Type 2 Not detected (Not Detected) 01/17/21 18:45 Parainfluenzae Type 3 Not detected (Not Detected) 01/17/21 18:45 Aspergillus Ag (EIA) Not detected 01/18/21 13:57 A. galactomannan Ag Idx <0.50 01/18/21 13:57 RSV Ab Comment see note 01/17/21 18:45 Rhinovirus (PCR) Not detected (Not Detected) 01/17/21 18:45 SARS-CoV-2 Ag (Rapid) Negative (Negative) 01/17/21 18:45 Beta-(1,3)-D-Glucan TNP 01/18/21 13:57 B-(1,3)-D-Glucan Intrp Not Reportable 01/18/21 13:57 Impressions Chest CTA 01/16/21 08:56 IMPRESSION: Interstitial lung disease which by chest x-ray has been progressive since 2013. The groundglass densities are nonspecific and could be related to the chronic interstitial lung disease or could represent an acute process superimposed on chronic lung disease.The differential here is extensive and requires more clinical correlation. One consideration with the symmetric adenopathy would be progressive sarcoidosis. The appearance is not typical for Covid Chest X-Ray 01/22/21 07:32 IMPRESSION: Persistent diffusely increased interstitial markings which have been present dating back to at least December 29, 2020, with some slight interval increase at the left peripheral mid lung. Findings may represent atypical pneumonia or edema superimposed on chronic interstitial lung disease. Underlying malignancy is not excluded. Radiation Dose CTDIVOL = (mGy): DLP = (mGy-cm) Micro: Microbiology 01/17/21 18:17 Blood Culture - Final Blood NO GROWTH AFTER 5 DAYS 01/17/21 18:09 Blood Culture - Final Blood NO GROWTH AFTER 5 DAYS A&P Assessment and plan (1) Acute respiratory failure with hypoxemia: Status: Acute (2) Interstitial lung disease: Status: Acute (3) Pneumonia: Status: Acute (4) Restrictive lung disease: Status: Acute (5) Ex-smoker: Status: Acute (6) Pulmonary artery hypertension: Status: Acute (7) Post-COVID syndrome: Status: Acute (8) Polyuria: Status: Acute (9) Hyponatremia: Status: Acute (10) SANDY (acute kidney injury): Status: Acute (11) Hyperkalemia: Status: Acute (12) COPD (chronic obstructive pulmonary disease): Status: Acute Qualifiers: COPD type: unspecified COPD Qualified Code(s): J44.9 - Chronic obstructive pulmonary disease, unspecified (13) Obstructive sleep apnea: Status: Acute #Acute hypoxic respiratory failure with hypoxemia-ILD exacerbation/viral pneumonitis #Undiagnosed ILD-pretty broad differential at this point of time-NSIP/subacute OR chronic HP/CEP/AIP-progressive since 2013 based on x-rays #COPD in ex-smoker 50 pack year history quit 2004 #Group 3 pulmonary hypertension-ILD + COPD + MICHAEL # covid 19 + ve 11/14/20 2 months ago #MICHAEL on CPAP #Polyuria-secondary to osmotic diuresis/?? SIADH-osmolality is pending #Hyponatremia--increased free water consumption/Bactrim induced/?? SIADH 127- corrected sodium to [id number]-575-oy oral salt tablets #Hyperkalemia-5.8-trans cellular shift to high glucose/Bactrim induced -Currently on 45 L 60%-saturating 92%-need close monitoring in ICU - at risk for intubation -ABG 7.4 /83/20 3/96% on high flow 40 L 75% -Progressive ILD based on chest x-rays since 2013; recent CTD panel as out patient negative -CTA on admission-ruled out PE but predominant reticular interstitial changes- there is mosaic pattern air bronchograms distributed in the upper and lower lobes both centrally anteriorly with no recent nodules or masses. There is some evidence of bilateral bronchiectasis in the upper lobes. This CT is not a typical UIP pattern as there is no evidence of bibasilar honeycombing and presence of extensive GGO's. 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- difficult to determine underlying cause -S/p bronchoscopy 01/18/2021 and obtained BAL from [facility] - -too-low WBC to do differential -So far sputum culture negative bacterial antigens negative, MRSA negative, UA negative, HIV negative, procalcitonin 0.08, Galactomannan, respiratory viral panel-negative; BAL-Janice albicans; currently on fluconazole (day 4); although Janice albicans and respiratory tract anticommensal-given patient's ILD exacerbations-I will continue fluconazole -Urine histoplasma, PCP PCR, beta D glucan D pending -We will treat it as ILD exacerbation and recommended Solu-Medrol 40 every 8 HR - monitor sugars on this diabetic patient ; currently Lantus to 40 mg twice daily, lispro 3 units 3 times daily and patient on high-dose insulin coverage -Although patient has no evidence of immunosuppression-received only 10 days p. o. prednisone prior to admission - given the rapidity of O2 requirement and possible PCP in immunocompetent patients-started on Bactrim and BAL PCP PCR is pending -currently on imipenem (d 7) discontinue after 10 days - discontinued Vancomyicn as MRSA is negative, high risk of Levaquin for apical coverage - Other causes of GGO's on CT chest-underlying cardiac cause -but pt had negative nuclear stress testing on 12/12/2020. BNP 114, Echocardiogram 10/24/2020 did reveal 1/4 diastolic dysfunction, preserved EF, pulmonary hypertension at least moderate -repeat echo 01/17/2021 normal LV size and systolic function with EF 68% and mild LVH. No pericardial effusion. -Patient med list showed he is on sildenafil-initially presumed secondary to pulmonary hypertension (as seen on his previous problem list) but patient reported that he is using it for his ED but he does not use it often. Discontinued sildenafil -Monitor intake output, electrolytes and renal functions closely and try to keep fluid balance net negative -Continue DuoNeb nebulization every 6 hours scheduled -Patient needs close monitoring for respiratory status for possible acute decompensation requiring mechanical intubation -Patient is polyuric-serum osmolarity 288/urine osmolality 788-secondary osmotic diuresis due to high sugars; today corrected sodium 131; Urine sodium 80.. Although euvolemic hyponatremia SIADH is plausible-similar clinical picture is also seen with Bactrim induced tubular blockade of sodium reabsorption; and also the carrier fluid for Bactrim is D5 which makes hyponatremia worse, unfortunately pharmacy reported carrier fluid cannot be changed to NS. Also patient is thirsty and consuming a lot of free water.Encourage fluid restriction and salt tablets and closely monitor electrolytes. Unfortunately it is taking too long for PCP PCR to be reported-if it is negative then I would prefer to discontinue Bactrim which will help with patient's hyperglycemia, hyponatremia, hyperkalemia. TSH 0.77; random cortisol 3.91. -Also patient hyperkalemia 5.8 can be secondary to transcellular shifts because of high glucose levels and Bactrim prevents tubular secretion of potassium leading to severe hyperkalemia. We will monitor potassium and currently on Lantus to 40 twice daily, lispro 3 mg 3 times daily. Serum ketones negative At this point of time, patient prognosis remains critical, given his chronic underlying idiopathic interstitial lung disease-currently FiO2 requirements gradually decreasing 45 L 60%-covered with broad-spectrum antibiotics for ??? acute bacterial infections and with steroids for ILD exacerbation. Underwent bronchoscopy 01/18/2021 and BAL has too low WBC for BAL analysis and recommended albicans. Awaiting PCP PCR-if negative will stop Bactrim. - Once patient recovers from this acute episode, Patient needs surgical lung biopsy for definitive diagnosis as transbronchial biopsy yield is low. Patient respiratory status has plateaued for last 1 week requiring high flow oxygen and gradually worsening day by day. If patient continues to worsen-patient may be intubated and would benefit from ECMO as bridge to lung transplant. And so I would recommend to transfer patient to higher center for lung transplant evaluation in this patient with idiopathic interstitial lung disease requiring high amounts of oxygen Attestations Medical Necessity Statement*: Need hospital stay for respiratory failure requiring IV antibiotics and further evaluation of interstitial lung disease. Time Spent in Patient Care: Greater than 35 minutes (>than 50% of time spent in counselling and/or direct pt care on unit) . Critical Care Time: The high probability of a clinically significant, sudden or life threatening deterioration of the patient's [pulmonary, infectious disease, fluid and electrolytes, renal] system(s) required my full and direct attention, intervention and personal management. The critical care time is as shown. 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
[2021-01-23 20:01] LABS: Glucose Point of Care 293 mg/dL (70-110)
[2021-01-23] MEDS: atorvastatin 40 mg Tablet 20 MG PO (20:30)
[2021-01-23 20:47] LABS: Anion Gap 18.3 (5-19); Blood Urea Nitrogen 27 mg/dL (6-20); Calcium 8.4 mg/dL (8.5-10.5); Carbon Dioxide 21 mmol/L (22-29); Chloride 90 mmol/L (98-107); Glomerular Filtration Rate 98.9 mL/min (90-130); Glucose 301 mg/dL (65-115); Osmolality Calculated 274 mOsm/kg (285-295); Potassium 5.3 mmol/L (3.5-5.1); Sodium 124 mmol/L (136-145)
[2021-01-23] MEDS: dextrose 50% syringe 50 mL 25 ML IVP (21:12)
[2021-01-23 23:11] LABS: Glucose Point of Care 236 mg/dL (70-110)
[2021-01-24] VITALS (69 sets, daily range): BP systolic 107–147; BP diastolic 56–107; PULSE 72–126; RESP 14–39; TEMP 36.3–36.9; O2SAT 77–98; BMI 36.4
[2021-01-24] MEDS: ipratropium-albuterol 3 mL Neb INHALATION ×6 (00:11→19:50)
[2021-01-24] MEDS: guaiFENesin-dextromethorphan UDC 10 mL 5 ML PO ×2 (01:29→19:26)
[2021-01-24] MEDS: HYDROcodone-acetaminophen 10-325 mg Tablet 1 TAB PO ×2 (01:29→21:35)
[2021-01-24 03:16] LABS: ABG PCO2 35.5 mmHg (35-45); ABG PH Result 7.47 (7.35-7.45); Arterial Blood Gas Hematocrit 42.3 % (42-52); Base Excess ABG 2.2 mmol/L (-2.0-2.0); Blood Gas Allen Test Pos; Blood Gas Sample Site Radial, left; Blood Gas Sample Type Arterial; Carboxyhemoglobin 0.5 %THgb (0.4-20.1); HCO3 ABG 25.7 mmol/L (22-26); HGB O2 Sat 93.5 % (95-100); Ionized Calcium Level - ABG 1.2 mmol/L (1.1-1.4); Methemoglobin 0.8 % (0.4-1.5); Oxygen Device NC; Oxygen Saturation ABG 94.7; PO2 ABG 73.1 mmHg (80.0-100.0); Potassium Level - ABG 4.9 mmol/L (3.5-5.0); Total Hemoglobin 13.8 g/dL (14-18)
[2021-01-24 03:49] LABS: Basophils # 0.1 10^3/uL (0.0-0.1); Basophils % 0.3 %; Hematocrit 41.3 % (42.0-52.0); Hemoglobin 13.4 g/dL (11.7-16.6); Lymphocytes # 1.1 10^3/uL (0.8-4.8); Lymphocytes % 5.2 %; Mean Corpuscular HGB Conc 32.4 g/dL (30.0-36.0); Mean Corpuscular Hemoglobin 28.5 pg (28.0-34.0); Mean Corpuscular Volume 87.9 fl (80-94); Mean Platelet Volume 10.1 fL (7.4-10.4); Monocytes # 1.6 10^3/uL (0.2-0.9); Monocytes % 7.3 %; Neutrophils # 18.27 10^3/uL (1.8-7.7); Neutrophils % 84.8 %; Nucleated Red Blood Cells % 0 %; Platelet Count 325 10^3/cmm (130-400); Red Cell Distribution Width 14.6 % (12.1-15.1); White Blood Count 21.6 10^3/uL (4.0-10.0)
[2021-01-24 04:07] LABS: Anion Gap 16.1 (5-19); Blood Urea Nitrogen 25 mg/dL (6-20); Calcium 8.5 mg/dL (8.5-10.5); Carbon Dioxide 23 mmol/L (22-29); Chloride 93 mmol/L (98-107); Glomerular Filtration Rate 115.4 mL/min (90-130); Glucose 267 mg/dL (65-115); Osmolality Calculated 278 mOsm/kg (285-295); Potassium 5.1 mmol/L (3.5-5.1); Sodium 127 mmol/L (136-145)
--- NOTE | 2021-01-24 06:13 | PC.NURSE ---
Shift Note Frequent safety and comfort rounds continue. Orders and/or nursing care completed as indicated. Patient monitored for response to intervention and treatment(s). Education provided includes fall and oxygen safety, medications with side effects, S/S to report, treatment goals. Patient verbalized understanding of education. Patient's SpOx drops <87% when sleeping and with any exertion, HHF changes made to maintain SpOx <88%, HHF managed by RT. Will continue to monitor.
[2021-01-24 07:05] LABS: Glucose Point of Care 305 mg/dL (70-110)
[2021-01-24 07:08] LABS: Histoplasma Antigen (Quant) NONE DETECTED; Histoplasma Antigen Interpreta NEGATIVE; Histoplasma Antigen Specimen URINE
--- NOTE | 2021-01-24 07:16 | PC.NURSE ---
Report received. Assessment completed. VSS. Remains on FNC 45L/75%. Up in chair in room, AAOx4, makes all needs known. Denies any needs at this time. Meza cath draining freely to BSD. Will monitor.
[2021-01-24] MEDS: insulin lispro 100 unit/1 mL SUBCUT ×7 (07:49→21:04)
[2021-01-24] MEDS: fluconazole 100 mg Tablet PO (08:05)
[2021-01-24] MEDS: pantoprazole DR 40 mg Tablet PO (08:05)
[2021-01-24] MEDS: aspirin 81 mg EC Tablet PO (08:05)
[2021-01-24] MEDS: benzonatate 100 mg Capsule PO ×3 (08:05→21:03)
[2021-01-24] MEDS: sodium chloride 1 gm Tablet PO ×2 (08:05→16:59)
[2021-01-24] MEDS: sulfamethoxazole-trimeth DS 160-800 mg Tablet 1 TAB PO ×2 (08:06→16:59)
[2021-01-24] MEDS: nystatin 100,000 unit/mL UDC 5 mL 500000 UNIT PO ×4 (08:06→21:03)
[2021-01-24] MEDS: baclofen 10 mg Tablet 20 MG PO ×2 (08:06→16:59)
[2021-01-24] MEDS: sertraline 50 mg Tablet PO (08:06)
[2021-01-24] MEDS: insulin glargine 100 units/1 mL 40 UNIT SUBCUT ×2 (08:07→21:03)
[2021-01-24 08:33] LABS: P. Jirovecii DNA QL PCR DETECTED; P. Jirovecii DNA QL PCR Source SPUTUM
[2021-01-24] MEDS: enoxaparin 40 mg/0.4 mL Syringe SUBCUT (10:29)
[2021-01-24] MEDS: acetaminophen 325 mg Tablet 650 MG PO (10:36)
[2021-01-24 10:38] LABS: Glucose Point of Care 409 mg/dL (70-110)
--- NOTE | 2021-01-24 15:53 | P.PN_ITS ---
Subjective Subjective: Interval history: Seen and examined this morning. He states he is feeling a little bit better today compared to yesterday. PCP test on sputum came back positive and afternoon today. Labs have been reviewed. No acute events overnight. Medications: Reviewed: Yes Vitals/I&O/Wt Last Vital Signs Temp 98.1 F 01/24/21 12:00 Pulse 87 01/24/21 14:00 Resp 25 H 01/24/21 12:30 BP 107/67 01/24/21 12:30 Pulse Ox 91 01/24/21 12:30 01/24/21 01/24/21 01/24/21 06:59 14:59 22:59 Intake Total 438 / 1618.1 580 / 580 Output Total 1550 / 3000 1000 / 1000 Balance -1112 / -1381.9 -420 / -420 Weight last 48 hrs Weight 115.326 kg Weight 116.346 kg Weight 116.483 kg Physical Exam Narrative: EXAM NARRATIVE: General: Alert oriented x3, patient seen sitting up in recliner on high flow nasal cannula,obese male. HEENT: Normocephalic, atraumatic, EOMI, breathing 60% FiO2, 45 L. Cardio: Regular rate rhythm, normal S1-S2, no murmurs rubs gallops, Respiratory: Good bilateral air entry, no wheezes no rhonchi appreciated. However there are crepitus sounds at the bases bilaterally which does sound improved compared to prior day.. GI: Abdomen soft, nontender, nondistended, bowel sounds + Behavior: Appropriate and cooperative Extremities: no edema, no cyanosis Urinary Catheter Management^: Meza: Cath Placed During This Visit: yes Reason for Continuing Indwelling Catheter: Accurate Measurement of Urinary Output in Critically Ill Patients Urinary Catheter Date of Insertion: 01/18/21 Urinary Catheter Time of Insertion: 00:05 Data : 01/24/21 03:15 01/24/21 03:15 A&P Assessment and plan (1) Hyperkalemia: Status: Acute (2) SANDY (acute kidney injury): Status: Acute (3) Hyponatremia: Status: Acute (4) Polyuria: Status: Acute (5) Acute respiratory failure with hypoxemia: Status: Acute (6) Interstitial lung disease: Continue IV steroids for concern of exacerbation. Status: Acute (7) COPD (chronic obstructive pulmonary disease): Status: Acute Qualifiers: COPD type: unspecified COPD Qualified Code(s): J44.9 - Chronic obstructive pulmonary disease, unspecified (8) Pulmonary artery hypertension: . Status: Acute (9) HTN (hypertension): Status: Acute (10) Hyperlipidemia: Status: Acute (11) Obstructive sleep apnea: Status: Acute (12) Diabetes mellitus: . Status: Acute Additional A&P Information Interstitial lung disease exacerbation Acute hypoxic respiratory failure, on heated high flow PCP pneumonia History of pulmonary hypertension. History of COPD History of recent Covid. Echocardiogram 10/24/2020 did reveal 1/4 diastolic dysfunction, preserved EF, pulmonary hypertension at least moderate -repeat echo 01/17/2021 normal LV size and systolic function with EF 68% and mild LVH. No pericardial effusion. S/p bronchoscopy 01/18/2021 and obtained BAL from [facility] - -too-low WBC to do differential -BAL-Janice albicans; PCP, galactomannan, beta D glucan D pending BAL positive for Janice. PCP pneumonia PCR is positive on sputum. We will place patient on Bactrim for total of 21 days. I will also do steroids: Prednisone 40 mg twice daily for 5 days, prednisone 40 mg daily for 5 days, prednisone 20 mg for 11 days., current ly on Bactrim every 48 hour. Vancomycin discontinued, MRSA nares is negative. Continue fluconazole 200 mg daily x10 days total. Imipenem day 8 today. Levaquin day 5. Will discontinue levofloxacin. We will stop imipenem day 10. Currently on heated high flow 60%, 45 L, slowly improving. [facility] was contacted by Dr. Davis. At this time patient is not a candidate for lung transplant due to his high BMI. Their cut off for BMI is 31. Plan would be to send the patient to LTAC. However if his oxygen requirements continue to worse he will have to be intubated. Patient is aware of the plan and on board. Pulmonology on board. We will continue to follow recommendations. Hyperkalemia: Resolved today Hyponatremia, possibly Bactrim induced: Waiting on renin, aldosterone level, urine sodium greater than 40, patient looks euvolemic, polyuric, sodium 127 today. Improving slightly. Bactrim induced electrolyte imbalance versus SIADH. Further lab is pending. We will continue salt tablet for now. No active neurological deficit Urine and serum osmolarity pending Hyperglycemia, steroid-induced with underlying type 2 diabetes, increase sliding scale to high intensity Will use scheduled premeal insulin Pulmonary hypertension: Patient does not use any medication at home sildenafil uses watch for erectile dysfunction, currently on steroids Consistent carb diet DVT prophylaxis Lovenox Full code Case management is working on finding LTAC placement. Attestations Medical Necessity Statement*: Still requiring high flow nasal cannula. 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
[2021-01-24 16:54] LABS: Glucose Point of Care 356 mg/dL (70-110)
--- NOTE | 2021-01-24 17:40 | PC.NURSE ---
Shift Note Frequent safety and comfort rounds continue. Orders and/or nursing care completed as indicated. Patient monitored for response to intervention and treatment(s). Education provided includes treatment plan, medications and oxygen therapy. Pt verbalizes understanding. Pt up to chair several times today. Desatted going to chair for dinner, fio2 increased to 65%. Lung sounds coarse with fine crackles noted to B bases. Meza cath draining freely to BSD. Will continue to monitor.
--- NOTE | 2021-01-24 17:52 | PC.NURSE ---
FIO2 increased to 75% when pt moved to BSC. 100% O2 button utilized. PT resting on BSC. No apparent issues at this time.
[2021-01-24 19:22] LABS: Glucose Point of Care 351 mg/dL (70-110)
[2021-01-24 21:03] LABS: Glucose Point of Care 339 mg/dL (70-110)
[2021-01-24] MEDS: atorvastatin 40 mg Tablet 20 MG PO (21:03)
--- NOTE | 2021-01-24 21:20 | P.PN_ITS ---
Subjective Subjective: Interval history: -Patient seen at bedside today multiple times -Sitting out of bed to chair on 45 L and 60% FiO2 saturating 90% -Today morning ABG showed PaO2 74 on 45 L 75% -Sputum PCP came back positive-could be a commensal in this immunocompetent patient-but given his acute hypoxic respiratory failure-continue to treat PCP pneumonia and complete 21 days of Bactrim along with steroids -Labs and imaging reviewed Medications: Reviewed: Yes Vitals/I&O/Wt Last Vital Signs Temp 98.4 F 01/24/21 19:30 Pulse 108 H 01/24/21 21:00 Resp 23 H 01/24/21 21:00 BP 130/70 01/24/21 21:00 Pulse Ox 94 01/24/21 21:00 01/24/21 01/24/21 01/24/21 06:59 14:59 22:59 Intake Total 438 / 1618.1 580 / 580 340 / 920 Output Total 1550 / 3000 1000 / 1000 800 / 1800 Balance -1112 / -1381.9 -420 / -420 -460 / -880 Weight last 48 hrs Weight 254 lb 4 oz Weight 256 lb 8 oz Weight 256 lb 12.8 oz Physical Exam Narrative: EXAM NARRATIVE: General: alert, mild to moderate respiratory distress on high flow nasal cannula HEENT: conj clear, EOMI, PERRL, mmm, Neck: supple, no meningismus Heme: no cervical LAP Pulmonary: CTAB, no wheezing, rhonchi, crackles Cardiovascular: rrr, nl s1s2, no mrg Abdomen: soft, nt, nd, no r/g, bs+ Extremities: pulses +, no edema, no c/c : no CVA tenderness Skin: intact, no rash MSK: no back or neck pain Neurologic: grossly intact Urinary Catheter Management^: Meza: Cath Placed During This Visit: yes Reason for Continuing Indwelling Catheter: Accurate Measurement of Urinary Output in Critically Ill Patients Urinary Catheter Date of Insertion: 01/18/21 Urinary Catheter Time of Insertion: 00:05 Data : 01/24/21 03:15 01/24/21 03:15 Other Labs: Laboratory Results WBC 21.6 10^3/uL (4.0-10.0) H 01/24/21 03:15 RBC 4.70 10^6/uL (4.1-5.3) 01/24/21 03:15 Hgb 13.4 g/dL (11.7-16.6) 01/24/21 03:15 Hct 41.3 % (42.0-52.0) L 01/24/21 03:15 MCV 87.9 fl (80-94) 01/24/21 03:15 MCH 28.5 pg (28.0-34.0) 01/24/21 03:15 MCHC 32.4 g/dL (30.0-36.0) 01/24/21 03:15 RDW 14.6 % (12.1-15.1) 01/24/21 03:15 Plt Count 325 10^3/cmm (130-400) 01/24/21 03:15 MPV 10.1 fL (7.4-10.4) 01/24/21 03:15 Neut % (Auto) 84.8 % 01/24/21 03:15 Lymph % (Auto) 5.2 % 01/24/21 03:15 Wallace % (Auto) 7.3 % 01/24/21 03:15 Eos % (Auto) 0.0 % 01/24/21 03:15 Baso % (Auto) 0.3 % 01/24/21 03:15 Neut # (Auto) 18.27 10^3/uL (1.8-7.7) H 01/24/21 03:15 Lymph # (Auto) 1.1 10^3/uL (0.8-4.8) 01/24/21 03:15 Wallace # (Auto) 1.6 10^3/uL (0.2-0.9) H 01/24/21 03:15 Eos # (Auto) 0.0 10^3/uL (0.0-0.8) 01/24/21 03:15 Baso # (Auto) 0.1 10^3/uL (0.0-0.1) 01/24/21 03:15 Nucleated RBC % (auto) 0 % 01/24/21 03:15 Nucleated RBCs # 0.0 /100WBC 01/24/21 03:15 ESR 53 mm/hr (0-10) H 01/18/21 03:38 D-Dimer 4.27 ug/mIFEU (0-0.59) H 01/20/21 17:29 Specimen Type Arterial 01/24/21 04:00 Sample Site Radial, left 01/24/21 04:00 ABG pH 7.47 (7.35-7.45) H 01/24/21 04:00 ABG pCO2 35.5 mmHg (35-45) 01/24/21 04:00 ABG pO2 73.1 mmHg (80.0-100.0) L 01/24/21 04:00 ABG HCO3 25.7 mmol/L (22-26) 01/24/21 04:00 ABG O2 Saturation 94.7 01/24/21 04:00 ABG Base Excess 2.2 mmol/L (-2.0-2.0) H 01/24/21 04:00 Jorden Test Pos 01/24/21 04:00 A-a O2 Gradient 54.0 mmHg (5-10) H 01/24/21 04:00 Hematocrit 42.3 % (42-52) 01/24/21 04:00 Hgb O2 Saturation 93.5 % (95-100) L 01/24/21 04:00 Carboxyhemoglobin 0.5 %THgb (0.4-20.1) 01/24/21 04:00 Methemoglobin 0.8 % (0.4-1.5) 01/24/21 04:00 Total Hemoglobin 13.8 g/dL (14-18) L 01/24/21 04:00 Sodium 125.0 mmol/L (131-143) L 01/24/21 04:00 Potassium 4.9 mmol/L (3.5-5.0) 01/24/21 04:00 Glucose 290.0 mg/dL (70-115) H 01/24/21 04:00 Ionized Calcium 1.2 mmol/L (1.1-1.4) 01/24/21 04:00 O2 Delivery Device Nc 01/24/21 04:00 O2 Liters/Min 45.0 % 01/24/21 04:00 FiO2 75.0 % 01/24/21 04:00 Automobile Service Station Attendant ID nathan 01/24/21 04:00 Sodium 127 mmol/L (136-145) L 01/24/21 03:15 Potassium 5.1 mmol/L (3.5-5.1) 01/24/21 03:15 Chloride 93 mmol/L (98-107) L 01/24/21 03:15 Carbon Dioxide 23 mmol/L (22-29) 01/24/21 03:15 Anion Gap 16.1 (5-19) 01/24/21 03:15 BUN 25 mg/dL (6-20) H 01/24/21 03:15 Creatinine 0.7 mg/dL (0.7-1.2) 01/24/21 03:15 GFR Calculation 115.4 mL/min (90-130) 01/24/21 03:15 Glucose 267 mg/dL (65-115) H 01/24/21 03:15 POC Glucose 339 mg/dL (70-110) H 01/24/21 20:58 Serum Osmolality 288 mOsm/kg (278-305) 01/20/21 10:00 Calculated Osmolality 278 mOsm/kg (285-295) L 01/24/21 03:15 Lactic Acid 3.0 mmol/L (0.5-2.2) H 01/16/21 07:15 Lactic Acid (Sepsis) 1.9 mmol/L (0.5-2.2) 01/16/21 10:17 Calcium 8.5 mg/dL (8.5-10.5) 01/24/21 03:15 Total Bilirubin 0.4 mg/dL (0.15-1.2) 01/21/21 04:40 AST 8 U/L (0-40) 01/21/21 04:40 ALT 12 U/L (0-41) 01/21/21 04:40 Alkaline Phosphatase 94 IU/L (40-130) 01/21/21 04:40 Troponin T Baseline 8 ng/L (0-15) 01/16/21 07:15 Troponin T 120 Minute 7.41 ng/L (0-15) 01/16/21 09:05 Delta Troponin T -0.59 ABS# (0-10) L 01/16/21 09:05 Troponin T Hi Sens 6Hr 6.30 ng/L (0-15) 01/16/21 13:16 Troponin T Hi Sens 6Hr Delta -1.70 ng/L (0-12) L 01/16/21 13:16 C-Reactive Protein 92.5 mg/L (0.0-4.9) H 01/18/21 03:38 NT-Pro-B Natriuret Pep 114 pg/mL (0-125) 01/16/21 07:15 Total Protein 7.4 g/dL (6.6-8.7) 01/21/21 04:40 Albumin 3.3 g/dL (3.5-5.2) L 01/21/21 04:40 Globulin 4.1 g/dL (1.3-4.6) 01/21/21 04:40 Procalcitonin 0.08 ng/mL (0-0.5) 01/17/21 06:00 TSH 0.77 uIU/mL (0.27-4.20) 01/21/21 17:13 Random Cortisol 3.91 ug/dL (2.47-19.5) 01/21/21 17:13 Urine Color Yellow (Yellow) 01/16/21 09:36 Urine Appearance Clear (CLEAR) 01/16/21 09:36 Urine pH 5 (5-7) 01/16/21 09:36 Ur Specific [place] 1.015 (1.005-1.030) 01/16/21 09:36 Urine Protein Neg (Negative) 01/16/21 09:36 Urine Glucose (UA) Norm (Normal) 01/16/21 09:36 Urine Ketones Negative (Negative) 01/16/21 09:36 Urine Blood Neg (Negative) 01/16/21 09:36 Urine Nitrate Negative (Negative) 01/16/21 09:36 Urine Bilirubin Neg (Negative) 01/16/21 09:36 Urine Urobilinogen Norm mg/dL (Negative) 01/16/21 09:36 Ur Leukocyte Esterase Negative (Negative) 01/16/21 09:36 Urine RBC None /hpf (0-2) 01/16/21 09:36 Urine WBC Rare /hpf (0-5) 01/16/21 09:36 Ur Squamous Epith Cells Rare /hpf (0-5) 01/16/21 09:36 Amorphous Sediment Not Reportable 01/16/21 09:36 Urine Bacteria None /hpf (NONE) 01/16/21 09:36 Urine Osmolality 733 mOsm/kg (50-1200) 01/20/21 11:10 Ur Random Sodium 80 mmol/L 01/21/21 17:15 Ur Random Potassium 31 mmol/L 01/21/21 09:30 Ur Random Chloride 59 mmol/L 01/21/21 09:30 RSV Nasal Swab Not detected (Not Detected) 01/17/21 18:45 RSV Nasal Swab Int Cntl Not detected (Not Detected) 01/17/21 18:45 Bronch Specimen Source Right middle lobe 01/18/21 13:57 Bronchial Fluid Color Red 01/18/21 13:57 Bronchial Fluid Appearance Bloody (CLEAR) 01/18/21 13:57 Bronchial Fluid WBC 10 /uL 01/18/21 13:57 Bronchial Fluid RBC 0 10^3/uL 01/18/21 13:57 Bronch Cells Counted TNP 01/18/21 13:57 Serum Ketones Negative (Negative) 01/21/21 17:13 Adenovirus (PCR) Not detected (Not Detected) 01/17/21 18:45 Nasal/Oral COVID-19 PCR Not detected 01/17/21 17:45 Histoplasma Antigen Urine 01/18/21 10:45 Histoplasma Ag (Qnt) None detected ng/mL 01/18/21 10:45 Histoplasma Ag Interp Negative 01/18/21 10:45 HIV 1&2 Ab & HIV 1 Ag Non-reactive (Non-Reactiv) 01/17/21 06:00 HIV 1&2 Antibody Non-reactive (Non-Reactiv) 01/17/21 06:00 Human Metapneumovir PCR Not detected (Not Detected) 01/17/21 18:45 Influenza A (RT-PCR) Not detected (Not Detected) 01/17/21 18:45 Influenza A (H1) PCR Not detected (Not Detected) 01/17/21 18:45 Influenza A (H3) PCR Not detected (Not Detected) 01/17/21 18:45 Influenza B (RT-PCR) Not detected (Not Detected) 01/17/21 18:45 Parainfluenzae Type 1 Not detected (Not Detected) 01/17/21 18:45 Parainfluenzae Type 2 Not detected (Not Detected) 01/17/21 18:45 Parainfluenzae Type 3 Not detected (Not Detected) 01/17/21 18:45 Pneumocystis Source Sputum 01/16/21 11:04 Pneumocyst jiroveci PCR Detected A 01/16/21 11:04 Aspergillus Ag (EIA) Not detected 01/18/21 13:57 A. galactomannan Ag Idx <0.50 01/18/21 13:57 RSV Ab Comment see note 01/17/21 18:45 Rhinovirus (PCR) Not detected (Not Detected) 01/17/21 18:45 SARS-CoV-2 Ag (Rapid) Negative (Negative) 01/17/21 18:45 Beta-(1,3)-D-Glucan TNP 01/18/21 13:57 B-(1,3)-D-Glucan Intrp Not Reportable 01/18/21 13:57 Impressions Chest CTA 01/16/21 08:56 IMPRESSION: Interstitial lung disease which by chest x-ray has been progressive since 2013. The groundglass densities are nonspecific and could be related to the chronic interstitial lung disease or could represent an acute process superimposed on chronic lung disease. The differential here is extensive and requires more clinical correlation. One consideration with the symmetric adenopathy would be progressive sarcoidosis. The appearance is not typical for Covid Chest X-Ray 01/22/21 07:32 IMPRESSION: Persistent diffusely increased interstitial markings which have been present dating back to at least December 29, 2020, with some slight interval increase at the left peripheral mid lung. Findings may represent atypical pneumonia or edema superimposed on chronic interstitial lung disease. Underlying malignancy is not excluded. Radiation Dose CTDIVOL = (mGy): DLP = (mGy-cm) A&P Assessment and plan (1) Acute respiratory failure with hypoxemia: Status: Acute (2) Interstitial lung disease: Status: Acute (3) Pneumonia: Status: Acute (4) Restrictive lung disease: Status: Acute (5) Ex-smoker: Status: Acute (6) Pulmonary artery hypertension: Status: Acute (7) Post-COVID syndrome: Status: Acute (8) Polyuria: Status: Acute (9) Hyponatremia: Status: Acute (10) SANDY (acute kidney injury): Status: Acute (11) Hyperkalemia: Status: Acute (12) COPD (chronic obstructive pulmonary disease): Status: Acute Qualifiers: COPD type: unspecified COPD Qualified Code(s): J44.9 - Chronic obstructive pulmonary disease, unspecified (13) Obstructive sleep apnea: Status: Acute #Acute hypoxic respiratory failure with hypoxemia-ILD exacerbation/viral pneumonitis #Undiagnosed ILD-pretty broad differential at this point of time-NSIP/subacute OR chronic HP/CEP/AIP-progressive since 2013 based on x-rays #COPD in ex-smoker 50 pack year history quit 2004 #Group 3 pulmonary hypertension-ILD + COPD + MICHAEL # covid 19 + ve 11/14/20 2 months ago #MICHAEL on CPAP; currently on high flow nasal cannula 45 L 75% #Polyuria-secondary to osmotic diuresis/?? SIADH-osmolality is pending #Hyponatremia--increased free water consumption/Bactrim induced/?? SIADH 127- corrected sodium to [id number] oral salt tablets #Hyperkalemia-5.1-trans cellular shift to high glucose/Bactrim induced -Currently on 45 L 60%-saturating 92%-need close monitoring in ICU - at risk for intubation -ABG 7.4 //20 5/94% on high flow 45 L 75% -Progressive ILD based on chest x-rays since 2013; recent CTD panel as out patient negative -CTA on admission-ruled out PE but predominant reticular interstitial changes- there is mosaic pattern air bronchograms distributed in the upper and lower lobes both centrally anteriorly with no recent nodules or masses. There is some evidence of bilateral bronchiectasis in the upper lobes. This CT is not a typical UIP pattern as there is no evidence of bibasilar honeycombing and presence of extensive GGO's. 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- difficult to determine underlying cause -S/p bronchoscopy 01/18/2021 and obtained BAL from [facility] - -too-low WBC to do differential -So far sputum culture negative bacterial antigens negative, MRSA negative, UA negative, urine histoplasma, HIV negative, procalcitonin 0.08, Galactomannan, respiratory viral panel-negative; BAL-Janice albicans; discontinued fluconazole -Sputum PCP positive, BAL PCP PCR pending, beta D glucan D pending -We will treat it as ILD exacerbation and recommended Solu-Medrol 40 every 8 HR - monitor sugars on this diabetic patient ; currently Lantus to 40 mg twice daily, lispro 3 units 3 times daily and patient on high-dose insulin coverage -Although patient has no evidence of immunosuppression-received only 10 days p.o. prednisone prior to admission; sputum PCP positive can also be commensal in immunocompetent patients given the rapidity of O2 requirement; will continue 21 days of treatment with Bactrim and to 07/07/2020: BAL PCP PCR is pending -Patient already received 8 days of imipenem-discontinue today; discontinued Vancomyicn as MRSA is negative, completed 5 days of Levaquin for atypical coverage - Other causes of GGO's on CT chest-underlying cardiac cause -but pt had negative nuclear stress testing on 12/12/2020. BNP 114, Echocardiogram 10/24/2020 did reveal 1/4 diastolic dysfunction, preserved EF, pulmonary hypertension at least moderate -repeat echo 01/17/2021 normal LV size and systolic function with EF 68% and mild LVH. No pericardial effusion. -Patient med list showed he is on sildenafil-initially presumed secondary to pulmonary hypertension (as seen on his previous problem list) but patient repo rted that he is using it for his ED but he does not use it often. Discontinued sildenafil -Monitor intake output, electrolytes and renal functions closely and try to keep fluid balance net negative -Continue DuoNeb nebulization every 6 hours scheduled -Patient needs close monitoring for respiratory status for possible acute decompensation requiring mechanical intubation -Patient is polyuric-serum osmolarity 288/urine osmolality 788-secondary osmotic diuresis due to high sugars; today corrected sodium 131; Urine sodium 80.. Although euvolemic hyponatremia SIADH is plausible-similar clinical picture is also seen with Bactrim induced tubular blockade of sodium reabsorption; and also the carrier fluid for Bactrim is D5 which makes hyponatremia worse, unfortunately pharmacy reported carrier fluid cannot be changed to NS. Also patient is thirsty and consuming a lot of free water.Encourage fluid restriction and salt tablets and closely monitor electrolytes. Sputum PCP positive for pneumocystis and today A-a gradient 54 we will switch IV Bactrim to p.o. Bactrim to complete total 21 days which will help with patient's hyperglycemia, hyponatremia, hyperkalemia. TSH 0.77; random cortisol 3.91. -Also patient hyperkalemia 5.1 can be secondary to transcellular shifts because of high glucose levels and Bactrim prevents tubular secretion of potassium leading to severe hyperkalemia. We will monitor potassium and currently on Lantus to 40 twice daily, lispro 3 mg 3 times daily. Serum ketones negative At this point of time, patient prognosis remains critical, given his chronic underlying idiopathic interstitial lung disease-currently FiO2 requirements gradually decreasing 45 L 60%-covered with broad-spectrum antibiotics for ??? acute bacterial infections and with steroids for ILD exacerbation. Underwent bronchoscopy 01/18/2021 and BAL has too low WBC for BAL analysis and cultures grew albicans. Sputum PCP positive-we will switch IV Bactrim to p.o. Bactrim to complete 21 days - Once patient recovers from this acute episode, Patient needs surgical lung biopsy for definitive diagnosis as transbronchial biopsy yield is low. Patient respiratory status has plateaued for last 1 week requiring high flow oxygen. If patient condition worsen-patient may be intubated and would benefit from ECMO as bridge to lung transplant. Attestations Medical Necessity Statement*: Need hospital stay for respiratory failure requiring IV antibiotics and further evaluation of interstitial lung disease. Time Spent in Patient Care: Greater than 35 minutes (>than 50% of time spent in counselling and/or direct pt care on unit) . Critical Care Time: The high probability of a clinically significant, sudden or life threatening deterioration of the patient's [pulmonary, infectious disease, fluid and electrolytes, renal] system(s) required my full and direct attention, intervention and personal management. The critical care time is as shown. This time is in addition to time spent performing any reported procedures but includes the following: [x] Data and vital sign review and interpretation [x] Patient assessment, examination and intervention [x] Documentation [x] Medication orders and management Critical Care Time (min): 38 Coding Level of Care Code Acute Psychometrist for [facility] Fwd Diagnoses Acute respiratory failure with hypoxemia J96.01 Interstitial lung disease J84.9 Pneumonia J18.9 Restrictive lung disease J98.4 Ex-smoker Z87.891 Pulmonary artery hypertension I27.21 Post-COVID syndrome B94.8 Polyuria R35.89 Hyponatremia E87.1 SANDY (acute kidney injury) N17.9 Hyperkalemia E87.5 COPD (chronic obstructive pulmonary disease) J44.9 COPD type: unspecified COPD Obstructive sleep apnea G47.33
[2021-01-25] VITALS (53 sets, daily range): BP systolic 105–140; BP diastolic 61–107; PULSE 73–123; RESP 16–35; TEMP 36.3–37.3; O2SAT 84–95
[2021-01-25] MEDS: ipratropium-albuterol 3 mL Neb INHALATION ×3 (02:33→14:23)
[2021-01-25 04:58] LABS: Basophils # 0.1 10^3/uL (0.0-0.1); Basophils % 0.2 %; Hemoglobin 13.8 g/dL (11.7-16.6); Mean Corpuscular HGB Conc 32.9 g/dL (30.0-36.0); Mean Corpuscular Hemoglobin 28.6 pg (28.0-34.0); Mean Platelet Volume 9.4 fL (7.4-10.4); Monocytes # 1.4 10^3/uL (0.2-0.9); Monocytes % 5.5 %; Neutrophils # 21.87 10^3/uL (1.8-7.7); Neutrophils % 87.9 %; Nucleated Red Blood Cells % 0 %; Platelet Count 388 10^3/cmm (130-400); Red Blood Count 4.83 10^6/uL (4.1-5.3); Red Cell Distribution Width 14.7 % (12.1-15.1); White Blood Count 24.9 10^3/uL (4.0-10.0)
[2021-01-25 05:22] LABS: Anion Gap 14.1 (5-19); Blood Urea Nitrogen 22 mg/dL (6-20); Calcium 8.6 mg/dL (8.5-10.5); Carbon Dioxide 25 mmol/L (22-29); Chloride 92 mmol/L (98-107); Glomerular Filtration Rate 137.9 mL/min (90-130); Glucose 278 mg/dL (65-115); Osmolality Calculated 275 mOsm/kg (285-295); Potassium 5.1 mmol/L (3.5-5.1); Sodium 126 mmol/L (136-145)
--- NOTE | 2021-01-25 06:04 | PC.NURSE ---
Shift Note Frequent safety and comfort rounds continue. Orders and/or nursing care completed as indicated. Patient monitored for response to intervention and treatment(s). Education provided includes fall safety, medications with side effects, treatment goals,. Patient verbalized understanding. Patient rest well during the shift, maintaining SpOx >88% without changes to HHF. HHF managed by RT. Will continue to monitor.
[2021-01-25 07:12] LABS: Pneumocystis Jirovecii DNA PCR 372 copies/mL; Pneumocystis Jirovecii Source BRONCHIAL WASH
[2021-01-25 07:29] LABS: Glucose Point of Care 292 mg/dL (70-110)
[2021-01-25] MEDS: HYDROcodone-acetaminophen 10-325 mg Tablet 1 TAB PO ×2 (07:29→17:57)
[2021-01-25] MEDS: insulin lispro 100 unit/1 mL SUBCUT ×7 (08:27→20:47)
[2021-01-25] MEDS: aspirin 81 mg EC Tablet PO (08:28)
[2021-01-25] MEDS: pantoprazole DR 40 mg Tablet PO (08:28)
[2021-01-25] MEDS: benzonatate 100 mg Capsule PO ×3 (08:28→20:45)
[2021-01-25] MEDS: baclofen 10 mg Tablet 20 MG PO ×2 (08:28→17:44)
[2021-01-25] MEDS: sulfamethoxazole-trimeth DS 160-800 mg Tablet 1 TAB PO ×2 (08:28→17:44)
[2021-01-25] MEDS: predniSONE 20 mg Tablet 40 MG PO ×2 (08:28→17:44)
[2021-01-25] MEDS: sodium chloride 1 gm Tablet PO ×2 (08:28→17:44)
--- NOTE | 2021-01-25 09:20 | PC.CHAP ---
Pastoral Care Encounter/Spiritual Assessment Type of Contact [] Declined wrapper stemmer operator visit [] Patient/Family/Request visit [] Outpatient visit [] Follow-up visit [] Physician referral [] Code/Alert [x] Routine visit [] Staff referral [] Actively dying [] Patient sleeping [] Family support [] [] Out of room [] Palliative care [] [] Receiving care in room [] Pre-surgical visit [] Trauma [] Long length of stay [x] ICU visit [] Other: Relational/Emotional Strength [] Patient feels connected with others/family/visitors/staff [] Distress [] Loneliness/isolation [] Abandonment Spirituality of Patient [] Person of Anneliese [] Attends Religious of their Anneliese [] Believes in Prayer [] Reads Bible or Latter Day materials [] There are Spiritual issues to be addressed Electronic Technologist Interventions [x] Prayer [x] Active listening [x] Non-anxious presence [x] Spiritual/emotional support [] Crisis/trauma care [] Spiritual counseling [] Bereavement support [] Provided bereavement packet [] Provided Bible/devotional materials [] Provided toy/stuffed animal, coloring book to patient or family member [] Provided Communion [] Anointing/[place] [] Salvation [x] Completed spiritual assessment [] Other: Impact on Illness or Injury [] Angry [] Fearful [] Anxious [] Often cries [] Exhaustion [] Unable to work [] Unable to attend jehovah's witness [] Unable to walk/stand [] Unable to read [] Unable to drive [] Unable to eat/drink [] Unable to sleep [] Unable to be with family [] Patient intubated [] Other: Summary patient feeling stronger... setting in charge. Time spent with patient 5 min
[2021-01-25] MEDS: nystatin 100,000 unit/mL UDC 5 mL 500000 UNIT PO ×4 (09:33→20:45)
[2021-01-25] MEDS: sertraline 50 mg Tablet PO (09:33)
[2021-01-25] MEDS: insulin glargine 100 units/1 mL 25 UNIT SUBCUT ×2 (09:33→20:47)
[2021-01-25 11:22] LABS: Glucose Point of Care 285 mg/dL (70-110)
--- NOTE | 2021-01-25 11:39 | PM.PN ---
Subjective Subjective: Interval history: Seen this morning. Patient is in good spirits. He feels good today. He was on 70% FiO2 45 L oxygen when seen. He is aware that his PCR results are positive. We will treat him for Bactrim for 21 days total. No acute events overnight Awaiting placement to LTAC Medications: Reviewed: Yes Vitals/I&O/Wt Last Vital Signs Temp 98.3 F 01/25/21 04:30 Pulse 100 01/25/21 08:49 Resp 20 H 01/25/21 08:48 BP 116/77 01/25/21 08:30 Pulse Ox 92 01/25/21 08:48 01/24/21 01/25/21 01/25/21 22:59 06:59 14:59 Intake Total 590 / 1170 238 / 1408 Output Total 1500 / 2500 450 / 2950 Balance -910 / -1330 -212 / -1542 Weight last 48 hrs Weight 115.326 kg Physical Exam Narrative: EXAM NARRATIVE: General: Alert oriented x3, patient seen sitting up in recliner on high flow nasal cannula,obese male. HEENT: Normocephalic, atraumatic, EOMI, breathing 70% FiO2, 45 L. Cardio: Regular rate rhythm, normal S1-S2, no murmurs rubs gallops, Respiratory: Good bilateral air entry, no wheezes no rhonchi appreciated. GI: Abdomen soft, nontender, nondistended, bowel sounds + Behavior: Appropriate and cooperative Extremities: no edema, no cyanosis Urinary Catheter Management^: Meza: Cath Placed During This Visit: yes Reason for Continuing Indwelling Catheter: Accurate Measurement of Urinary Output in Critically Ill Patients Urinary Catheter Date of Insertion: 01/18/21 Urinary Catheter Time of Insertion: 00:05 Data : 01/25/21 04:35 01/25/21 04:35 A&P Assessment and plan (1) Hyperkalemia: Status: Acute (2) SANDY (acute kidney injury): Status: Acute (3) Hyponatremia: Status: Acute (4) Polyuria: Status: Acute (5) Acute respiratory failure with hypoxemia: Status: Acute (6) Interstitial lung disease: Continue IV steroids for concern of exacerbation. Status: Acute (7) COPD (chronic obstructive pulmonary disease): Status: Acute Qualifiers: COPD type: unspecified COPD Qualified Code(s): J44.9 - Chronic obstructive pulmonary disease, unspecified (8) Pulmonary artery hypertension: . Status: Acute (9) HTN (hypertension): Status: Acute (10) Hyperlipidemia: Status: Acute (11) Obstructive sleep apnea: Status: Acute (12) Diabetes mellitus: . Status: Acute Additional A&P Information Interstitial lung disease exacerbation Acute hypoxic respiratory failure, on heated high flow PCP pneumonia History of pulmonary hypertension. History of COPD History of recent Covid. Echocardiogram 10/24/2020 did reveal 1/4 diastolic dysfunction, preserved EF, pulmonary hypertension at least moderate -repeat echo 01/17/2021 normal LV size and systolic function with EF 68% and mild LVH. No pericardial effusion. S/p bronchoscopy 01/18/2021 and obtained BAL from [facility] - -too-low WBC to do differential -BAL-Janice albicans; PCP, galactomannan, beta D glucan D pending BAL positive for Janice. PCP pneumonia PCR is positive on sputum. We will place patient on Bactrim for total of 21 days. I will also do steroids: Prednisone 40 mg twice daily for 5 days, prednisone 40 mg daily for 5 days, prednisone 20 mg for 11 days., currently on Bactrim every 48 hour. Vancomycin discontinued, MRSA nares is negative. Continue fluconazole 200 mg daily x10 days total. Imipenem day 8 today. Levaquin day 5. Will discontinue levofloxacin. We will stop imipenem day 10. Currently on heated high flow 70%, 45 L, slowly improving. [facility] was contacted by Dr. Davis. At this time patient is not a candidate for lung transplant due to his high BMI. Their cut off for BMI is 31. Plan would be to send the patient to LTAC. However if his oxygen requirements continue to worse he will have to be intubated. Patient is aware of the plan and on board. Pulmonology on board. We will continue to follow recommendations. Hyperkalemia: Resolved today Hyponatremia, possibly Bactrim induced: Waiting on renin, aldosterone level, urine sodium greater than 40, patient looks euvolemic, polyuric, sodium 127 today. Improving slightly. Bactrim induced electrolyte imbalance versus SIADH. Further lab is pending. We will continue salt tablet for now. No active neurological deficit Urine and serum osmolarity pending Hyperglycemia, steroid-induced with underlying type 2 diabetes, increase sliding scale to high intensity Will use scheduled premeal insulin Pulmonary hypertension: Patient does not use any medication at home sildenafil uses watch for erectile dysfunction, currently on steroids Consistent carb diet DVT prophylaxis Lovenox Full code LTAC placement available. Plan to discharge today or tomorrow to the facility. Patient follow-up outpatient with pulmonology once discharged from LTAC. Attestations Medical Necessity Statement*: Discharge to LTAC today or tomorrow. multimedia services manager is working on case. Time Spent in Patient Care: less than 15 minutes Coding Level of Care Code Acute Foundry Worker for Chg Fwd Diagnoses Hyperkalemia E87.5 SANDY (acute kidney injury) N17.9 Hyponatremia E87.1 Polyuria R35.89 Acute respiratory failure with hypoxemia J96.01 Interstitial lung disease J84.9 COPD (chronic obstructive pulmonary disease) J44.9 COPD type: unspecified COPD Pulmonary artery hypertension I27.21 HTN (hypertension) I10 Hyperlipidemia E78.5 Obstructive sleep apnea G47.33 Diabetes mellitus E11.9
[2021-01-25] MEDS: enoxaparin 40 mg/0.4 mL Syringe SUBCUT (11:56)
[2021-01-25 16:54] LABS: Glucose Point of Care 245 mg/dL (70-110)
--- NOTE | 2021-01-25 18:22 | PM.TDS ---
Transfer Summary Providers Date of Admission: 01/16/21 09:45 Date of Discharge: 01/25/21 Attending Provider at Admission: Macho Sharif MD Attending Provider at Transfer: Merced Conde MD Primary Care Provider: Vernon Hoff MD Anticipated Date of Transfer: Anticipated date of transfer: 01/25/21 Receiving Facility & Provider: Receiving Provider: [] Receiving facility: [] Diagnoses at Discharge Discharge Diagnosis (1) Hyperkalemia: Status: Acute (2) SANDY (acute kidney injury): Status: Acute (3) Hyponatremia: Status: Acute (4) Polyuria: Status: Acute (5) Acute respiratory failure with hypoxemia: Status: Acute (6) Interstitial lung disease: Status: Acute (7) COPD (chronic obstructive pulmonary disease): Status: Acute Qualifiers: COPD type: unspecified COPD Qualified Code(s): J44.9 - Chronic obstructive pulmonary disease, unspecified (8) Pulmonary artery hypertension: Status: Acute (9) HTN (hypertension): Status: Acute (10) Hyperlipidemia: Status: Acute (11) Obstructive sleep apnea: Status: Acute (12) Diabetes mellitus: Status: Acute Reason for Visit Reason for Visit: DIFF BREATHING Hospital Course Hospital Course HnP as per Dr. Sharif Warren Mix is a 60 year old male who presents to the emergency department with increasing shortness of breath the last 2 to 3 days. He initially had greenish sputum but now it is clearing. He did have a little bit of blood at 1 point. He believes he had fever but did not take his temperature during this timeframe. He has previously had Covid, on November 13 when he was tested at work. He reports he gets some chest discomfort with exertion, which has been evaluated by cardiology. He has been short of breath altogether since June, with significant shortness of breath with exertion. He saw pulmonary, in December and there was concern of pulmonary fibrosis pre-existing Covid. He was to get oxygen set up but this never occurred according to the patient. He did take the 10 days of prednisone prescribed as well as 5 days of Levaquin at that time. He has many questions regarding his overall prognosis. He denies any chest discomfort currently. Previous work-up included nuclear stress testing, several x-rays, echocardiogram, inflammatory levels. Most of these were unrevealing. Echocardiogram did reveal 1/4 diastolic dysfunction, preserved EF, pulmonary hypertension at least moderate. In the emergency department he received a dose of Lasix, then some fluids, Levaquin, breathing treatment, and some Solu-Medrol Hospital Course: .CTA on admission rule out PE patient was requiring high flow nasal cannula 45 L 75%. Sputum culture negative for bacterial antigens, MRSA nares negative, procalcitonin 0.08, galactomannan respiratory viral panel negative. Bronchoscopy was performed on 01/18/2021. Bronchoalveolar lavage revealed Janice albicans. Patient was placed on imipenem and 5 days of Levaquin. Plan to complete 10 days of imipenem and 7 days of Levaquin total. Complete fluconazole 20 mg daily for 10 days total. There was suspicion of PCP pneumonia he was started on Bactrim early on during this admission. BAL is positive for PCP at this point. He is to be treated with Bactrim for 21 days total and steroid regimen of prednisone 40 mg twice daily for 5 days, prednisone 40 mg daily for 5 days, prednisone 20 mg for 11 days thereafter. Due to patient being on steroids he has been experiencing a lot of hypoglycemic episodes which have been controlled with Lantus and sliding scale insulin, premeal insulin. His sugars will need to be followed and adjusted daily. Patient has also been hyperkalemic and hyponatremic daily due to Bactrim. Will believe once Bactrim is discontinued the hyperkalemia and hyponatremia will also resolved. During patient's hospital stay [facility] was also called for potential transfer for candidacy of lung transplant. Patient did not meet their criteria for BMI. Please follow latest progress note hospitalist this progress note from airport security screener for further details. Plan is to send patient to LTAC. He will need to follow-up with Dr. Graves airport security screener 1 week after discharge from the LTAC. Once patient recovers from his acute episode of underlying interstitial lung disease he will need surgical lung biopsy for definitive diagnosis. Patient's respiratory status has plateaued for the last 1 week requiring high flow oxygen. Today patient is on 70% FiO2, 45L and feels well. Physical Exam Narrative: EXAM NARRATIVE: See progress note attached from today. Urinary Catheter Management^: Meza: Cath Placed During This Visit: yes Reason for Continuing Indwelling Catheter: Accurate Measurement of Urinary Output in Critically Ill Patients Urinary Catheter Date of Insertion: 01/18/21 Urinary Catheter Time of Insertion: 00:05 TS Data Data Completed and Pending: Completed Studies During Hospitalization Category Date Time Status CT angio chest PE protcl [id number] Urge nt Cat Scan 01/16/21 08:56 Completed XR chest 1V juan ble [id number] Routine Exams 01/19/21 08:18 Completed XR chest 1V juan ble [id number] Routine Exams 01/20/21 12:54 Completed XR chest 1V juan ble [id number] Routine Exams 01/22/21 07:32 Completed XR chest 1V juan ble [id number] Stat Exams 01/16/21 07:02 Completed CV. echo limited [id number] Routine Ultrasound 01/17/21 08:01 Completed Pending at discharge Category Date Time Status Arterial Blood Ga s W/O Coox Routine Lab 01/25/21 07:26 Ordered Basic Metabolic P lorrie AM LABS Lab 01/26/21 04:00 Ordered Complete Blood Co unt w/Auto AM LABS Lab 01/26/21 04:00 Ordered Fungal Culture no t HR/SK/BL Routine Lab 01/18/21 13:57 Received Fungitell Glucan Assay Routine Lab 01/21/21 11:08 Received Mycobacteria, Cul ture w/Fluor Routi ne Lab 01/18/21 13:57 Received Plasma Renin Acti vity LC/MS/MS Rout ine Lab 01/21/21 11:08 Received Labs from last 24 hours 01/25/21 01/25/21 01/25/21 16:50 11:18 07:26 WBC RBC Hgb Hct MCV MCH MCHC RDW Plt Count MPV Neut % (Auto) Lymph % (Auto) [place] % (Auto) Eos % (Auto) Baso % (Auto) Neut # (Auto) Lymph # (Auto) [place] # (Auto) Eos # (Auto) Baso # (Auto) Nucleated RBC % (a uto) Nucleated RBCs # Sodium Potassium Chloride Carbon Dioxide Anion Gap BUN Creatinine GFR Calculation Glucose POC Glucose 245 H 285 H 292 H Calculated Osmolal ity Calcium Aldosterone Fluid Source Pneumocystis DNA ( PCR) 01/25/21 01/25/21 01/24/21 04:35 04:35 20:58 WBC 24.9 H RBC 4.83 Hgb 13.8 Hct 42.0 MCV 87.0 MCH 28.6 MCHC 32.9 RDW 14.7 Plt Count 388 MPV 9.4 Neut % (Auto) 87.9 Lymph % (Auto) 4.0 [place] % (Auto) 5.5 Eos % (Auto) 0.0 Baso % (Auto) 0.2 Neut # (Auto) 21.87 H Lymph # (Auto) 1.0 [place] # (Auto) 1.4 H Eos # (Auto) 0.0 Baso # (Auto) 0.1 Nucleated RBC % (a uto) 0 Nucleated RBCs # 0.0 Sodium 126 L Potassium 5.1 Chloride 92 L Carbon Dioxide 25 Anion Gap 14.1 BUN 22 H Creatinine 0.6 L GFR Calculation 137.9 H Glucose 278 H POC Glucose 339 H Calculated Osmolal ity 275 L Calcium 8.6 Aldosterone Fluid Source Pneumocystis DNA ( PCR) 01/24/21 01/21/21 01/18/21 19:16 11:08 13:57 WBC RBC Hgb Hct MCV MCH MCHC RDW Plt Count MPV Neut % (Auto) Lymph % (Auto) [place] % (Auto) Eos % (Auto) Baso % (Auto) Neut # (Auto) Lymph # (Auto) [place] # (Auto) Eos # (Auto) Baso # (Auto) Nucleated RBC % (a uto) Nucleated RBCs # Sodium Potassium Chloride Carbon Dioxide Anion Gap BUN Creatinine GFR Calculation Glucose POC Glucose 351 H Calculated Osmolal ity Calcium Aldosterone <1 Fluid Source Bronchial wash Pneumocystis DNA ( PCR) 372 H Vitals: Last Vital Signs Temp 97.3 F L 01/25/21 17:30 Pulse 112 H 01/25/21 17:30 Resp 29 H 01/25/21 17:30 BP 129/84 01/25/21 17:30 Pulse Ox 86 L 01/25/21 17:30 TS Medications Medications Home Medications amlodipine 10 mg tablet 10 mg PO DAILY 11/01/20 [History Confirmed 01/16/21] aspirin 81 mg tablet,delayed release 81 mg PO DAILY 11/01/20 [History Confirmed 01/16/21] baclofen 20 mg tablet 20 mg PO BID 11/01/20 [History Confirmed 01/16/21] carvedilol 12.5 mg tablet 12.5 mg PO BID 11/01/20 [History Confirmed 01/16/21] cetirizine 10 mg tablet 10 mg PO DAILY PRN 11/01/20 [History Confirmed 01/16/21] hydrocodone 10 mg-acetaminophen 325 mg tablet 1 tab PO Q6H PRN 11/01/20 [History Confirmed 01/16/21] ketoconazole 2 % topical cream 1 applic TOPICAL DAILY 11/01/20 [History Confirmed 01/16/21] lisinopril 10 mg tablet 10 mg PO BID 11/01/20 [History Confirmed 01/16/21] metformin 1,000 mg tablet 1,000 mg PO BID 11/01/20 [History Confirmed 01/16/21] nitroglycerin 0.4 mg sublingual tablet 0.4 mg SUBLINGUAL Q5M PRN 11/01/20 [History Confirmed 01/16/21] pioglitazone 15 mg tablet 15 mg PO DAILY 11/01/20 [History Confirmed 01/16/21] pravastatin 80 mg tablet 80 mg PO DAILY 11/01/20 [History Confirmed 01/16/21] sertraline 100 mg tablet 50 mg PO DAILY 11/01/20 [History Confirmed 01/16/21] sildenafil (pulm.hypertension) 20 mg tablet 20 mg PO TID 11/01/20 [History Confirmed 01/16/21] triamcinolone acetonide 0.1 % topical cream 1 applic TOPICAL DAILY 11/01/20 [History Confirmed 01/16/21] tiotropium bromide 2.5 mcg/actuation mist for inhalation 2 puff INHALATION DAILY #4 g 12/30/20 [Rx Confirmed 01/16/21] chlorthalidone 25 mg PO DAILY 01/16/21 [History Confirmed 01/16/21] insulin aspart U-100 [Novolog Flexpen U-100 Insulin] See Rx Instructions .ROUTE .COMPLEX 01/16/21 [History Confirmed 01/16/21] liraglutide [Victoza 2-Charlie] 1.8 mg SUBCUT DAILY 01/16/21 [History Confirmed 01/16/21] montelukast 10 mg PO DAILY 01/16/21 [History Confirmed 01/16/21] omeprazole 20 mg PO DAILY 01/16/21 [History Confirmed 01/16/21] potassium chloride 20 meq PO DAILY 01/16/21 [History Confirmed 01/16/21] Active Medications Acetaminophen (Acetaminophen 325 Mg Tablet) 650 mg PO Q6H PRN PRN Reason: Mild/Mod Pain Or Temp >/= 101 Last Admin: 01/24/21 10:36 Dose: 650 mg Documented by: Hydrocodone Bitart/Acetaminophen (Hydrocodone-Acetaminophen 10-325 Mg Tablet) 1 tab PO Q6H PRN PRN Reason: MODERATE PAIN Last Admin: 01/25/21 17:57 Dose: 1 tab Documented by: Aspirin (Aspirin 81 Mg Ec Tablet) 81 mg PO DAILY [facility] Last Admin: 01/25/21 08:28 Dose: 81 mg Documented by: Atorvastatin Calcium (Atorvastatin 40 Mg Tablet) 20 mg PO BEDTIME [facility] Last Admin: 01/24/21 21:03 Dose: 20 mg Documented by: Baclofen (Baclofen 10 Mg Tablet) 20 mg PO BID [facility] Last Admin: 01/25/21 17:44 Dose: 20 mg Documented by: Benzonatate (Benzonatate 100 Mg Capsule) 100 mg PO TID [facility] Last Admin: 01/25/21 13:47 Dose: 100 mg Documented by: Dextrose (Dextrose 50% Syringe 50 Ml) 25 ml IVP ONCE PRN; Protocol PRN Reason: hypoglycemia protocol Dextrose (Dextrose 50% Syringe 50 Ml) 50 ml IVP PRN PRN; Protocol PRN Reason: hypoglycemia protocol Enoxaparin Sodium (Enoxaparin 40 Mg/0.4 Ml Syringe) 40 mg SUBCUT Q24H [facility] Last Admin: 01/25/21 11:56 Dose: 40 mg Documented by: Glucagon (Glucagon 1 Mg/Ml Inj 1 Ml) 1 mg IM ONCE PRN; Protocol PRN Reason: Adult Acute Hypoglycemia Prot. Guaifenesin/Dextromethorphan (Guaifenesin-Dextromethorphan Udc 10 Ml) 5 ml PO Q6H PRN PRN Reason: COUGH Last Admin: 01/24/21 19:26 Dose: 5 ml Documented by: Dextrose (D5w) 500 mls @ 100 mls/hr IV ONCE PRN; Protocol PRN Reason: Adult Acute Hypoglycemia Prot Insulin Glargine (Insulin Glargine 100 Units/1 Ml) 25 unit SUBCUT BID@0900,2100 [facility] Last Admin: 01/25/21 09:33 Dose: 25 unit Documented by: Insulin Human Lispro (Insulin Lispro 100 Unit/1 Ml) 0 unit SUBCUT WM&BEDTIME [facility]; Protocol Last Admin: 01/25/21 17:44 Dose: 10 unit Documented by: Insulin Human Lispro (Insulin Lispro 100 Unit/1 Ml) 3 unit SUBCUT TIDAC [facility] Last Admin: 01/25/21 17:45 Dose: 3 unit Documented by: Lanolin (Lanolin Oint 7 Gm) 1 applic TOPICAL PRN PRN PRN Reason: DRYNESS Last Admin: 01/22/21 16:00 Dose: 1 applic Documented by: Nystatin (Nystatin 100,000 Unit/Ml Udc 5 Ml) 500,000 unit PO QID [facility] Last Admin: 01/25/21 17:44 Dose: 500,000 unit Documented by: Pantoprazole Sodium (Pantoprazole Dr 40 Mg Tablet) 40 mg PO DAILY [facility] Last Admin: 01/25/21 08:28 Dose: 40 mg Documented by: Prednisone (Prednisone 20 Mg Tablet) 40 mg PO BID [facility]; Taper Stop: 02/15/21 08:59 Last Admin: 01/25/21 17:44 Dose: 40 mg Documented by: Sertraline HCl (Sertraline 50 Mg Tablet) 50 mg PO DAILY [facility] Last Admin: 01/25/21 09:33 Dose: 50 mg Documented by: Sodium Chloride (Saline Nasal [place] 44ml Btl) 1 spray NASAL PRN PRN PRN Reason: DRYNESS Last Admin: 01/21/21 17:19 Dose: 1 appful Documented by: Sodium Chloride (Sodium Chloride 1 Gm Tablet) 1 gm PO BID [facility] Last Admin: 01/25/21 17:44 Dose: 1 gm Documented by: Trimethoprim/Sulfamethoxazole (Sulfamethoxazole-Trimeth Ds 160-800 Mg Tablet) 1 tab PO BID [facility]; Protocol Stop: 02/06/21 23:59 Last Admin: 01/25/21 17:44 Dose: 1 tab Documented by: Discharge Plan Discharge Patient Disposition: Home Condition: Stable Prescriptions: No Action Spiriva Respimat 2.5 mcg/actuation mist 2 puff inhalation DAILY Qty: 4 RF: 3 aspirin 81 mg tablet,delayed release (DR/EC) 81 mg PO DAILY RF: 0 pravastatin 80 mg tablet 80 mg PO DAILY RF: 0 pioglitazone 15 mg tablet 15 mg PO DAILY RF: 0 carvedilol 12.5 mg tablet 12.5 mg PO BID RF: 0 cetirizine [All Day Allergy (cetirizine)] 10 mg tablet 10 mg PO DAILY PRN (Reason: Allergy Symptoms) RF: 0 sertraline 100 mg tablet 50 mg PO DAILY RF: 0 lisinopril 10 mg tablet 10 mg PO BID RF: 0 metformin 1,000 mg tablet 1,000 mg PO BID RF: 0 triamcinolone acetonide 0.1 % cream 1 applic topical DAILY RF: 0 ketoconazole 2 % cream 1 applic topical DAILY RF: 0 baclofen 20 mg tablet 20 mg PO BID RF: 0 amlodipine 10 mg tablet 10 mg PO DAILY RF: 0 hydrocodone-acetaminophen 10-325 mg tablet 1 tab PO Q6H PRN (Reason: Pain) RF: 0 nitroglycerin 0.4 mg tablet, sublingual 0.4 mg sublingual Q5M PRN (Reason: Chest Pain) RF: 0 sildenafil (pulm.hypertension) 20 mg tablet 20 mg PO TID RF: 0 chlorthalidone 25 mg Tablet 25 mg PO DAILY RF: 0 omeprazole 20 mg Capsule,Delayed Release(Dr/Ec) 20 mg PO DAILY RF: 0 montelukast 10 mg Tablet 10 mg PO DAILY RF: 0 potassium chloride 20 mEq Tablet Extended Release 20 meq PO DAILY RF: 0 Novolog Flexpen U-100 Insulin 100 unit/mL (3 mL) Insulin Pen See Rx Instructions .ROUTE .COMPLEX RF: 0 Victoza 2-Charlie 0.6 mg/0.1 mL (18 mg/3 mL) Pen Injector 1.8 mg SUBCUT DAILY RF: 0 Referrals: Vernon Hoff MD [Primary Care Provider] - Patient Instructions: Opioid Safety Transfer Attestations Time Spent in Transfer Care*: greater than 30 min Status at Transfer: Cognitive status at transfer: cognitively intact, Behavioral status at transfer: cooperative, Overall status at transfer: patient is not back to baseline Quality Metrics Clinical Quality Measures: During this hospital stay, did patient experience: None Coding Level of Care Code Acute Manager [facility] for [facility] Diagnoses Hyperkalemia E87.5 SANDY (acute kidney injury) N17.9 Hyponatremia E87.1 Polyuria R35.89 Acute respiratory failure with hypoxemia J96.01 Interstitial lung disease J84.9 COPD (chronic obstructive pulmonary disease) J44.9 COPD type: unspecified COPD Pulmonary artery hypertension I27.21 HTN (hypertension) I10 Hyperlipidemia E78.5 Obstructive sleep apnea G47.33 Diabetes mellitus E11.9
--- NOTE | 2021-01-25 18:40 | P.PN_ITS ---
Subjective Subjective: Interval history: -Patient seen at bedside today -Sitting comfortably out of bed to chair on 45% and 65 L saturating 92% -Reported subjective improvement in his shortness of breath -BAL PCP PCR was high -Likely transfer to LTAC -Other labs and imaging reviewed Medications: Reviewed: Yes Vitals/I&O/Wt Last Vital Signs Temp 97.3 F L 01/25/21 17:30 Pulse 112 H 01/25/21 17:30 Resp 29 H 01/25/21 17:30 BP 129/84 01/25/21 17:30 Pulse Ox 86 L 01/25/21 17:30 01/25/21 01/25/21 01/25/21 06:59 14:59 22:59 Intake Total 238 / 1408 360 / 360 360 / 720 Output Total 450 / 2950 950 / 950 500 / 1450 Balance -212 / -1542 -590 / -590 -140 / -730 Weight last 48 hrs Weight 254 lb 4 oz Physical Exam Narrative: EXAM NARRATIVE: General: alert, mild respiratory distress on high flow nasal cannula HEENT: conj clear, EOMI, PERRL, mmm, Neck: supple, no meningismus Heme: no cervical LAP Pulmonary: CTAB, no wheezing, rhonchi, crackles Cardiovascular: rrr, nl s1s2, no mrg Abdomen: soft, nt, nd, no r/g, bs+ Extremities: pulses +, no edema, no c/c : no CVA tenderness Skin: intact, no rash MSK: no back or neck pain Neurologic: grossly intact Urinary Catheter Management^: Meza: Cath Placed During This Visit: yes Reason for Continuing Indwelling Catheter: Accurate Measurement of Urinary Output in Critically Ill Patients Urinary Catheter Date of Insertion: 01/18/21 Urinary Catheter Time of Insertion: 00:05 Data : 01/25/21 04:35 01/25/21 04:35 Other Labs: Laboratory Results WBC 24.9 10^3/uL (4.0-10.0) H 01/25/21 04:35 RBC 4.83 10^6/uL (4.1-5.3) 01/25/21 04:35 Hgb 13.8 g/dL (11.7-16.6) 01/25/21 04:35 Hct 42.0 % (42.0-52.0) 01/25/21 04:35 MCV 87.0 fl (80-94) 01/25/21 04:35 MCH 28.6 pg (28.0-34.0) 01/25/21 04:35 MCHC 32.9 g/dL (30.0-36.0) 01/25/21 04:35 RDW 14.7 % (12.1-15.1) 01/25/21 04:35 Plt Count 388 10^3/cmm (130-400) 01/25/21 04:35 MPV 9.4 fL (7.4-10.4) 01/25/21 04:35 Neut % (Auto) 87.9 % 01/25/21 04:35 Lymph % (Auto) 4.0 % 01/25/21 04:35 Henry % (Auto) 5.5 % 01/25/21 04:35 Eos % (Auto) 0.0 % 01/25/21 04:35 Baso % (Auto) 0.2 % 01/25/21 04:35 Neut # (Auto) 21.87 10^3/uL (1.8-7.7) H 01/25/21 04:35 Lymph # (Auto) 1.0 10^3/uL (0.8-4.8) 01/25/21 04:35 Henry # (Auto) 1.4 10^3/uL (0.2-0.9) H 01/25/21 04:35 Eos # (Auto) 0.0 10^3/uL (0.0-0.8) 01/25/21 04:35 Baso # (Auto) 0.1 10^3/uL (0.0-0.1) 01/25/21 04:35 Nucleated RBC % (auto) 0 % 01/25/21 04:35 Nucleated RBCs # 0.0 /100WBC 01/25/21 04:35 ESR 53 mm/hr (0-10) H 01/18/21 03:38 D-Dimer 4.27 ug/mIFEU (0-0.59) H 01/20/21 17:29 Specimen Type Arterial 01/24/21 04:00 Sample Site Radial, left 01/24/21 04:00 ABG pH 7.47 (7.35-7.45) H 01/24/21 04:00 ABG pCO2 35.5 mmHg (35-45) 01/24/21 04:00 ABG pO2 73.1 mmHg (80.0-100.0) L 01/24/21 04:00 ABG HCO3 25.7 mmol/L (22-26) 01/24/21 04:00 ABG O2 Saturation 94.7 01/24/21 04:00 ABG Base Excess 2.2 mmol/L (-2.0-2.0) H 01/24/21 04:00 Jorden Test Pos 01/24/21 04:00 A-a O2 Gradient 54.0 mmHg (5-10) H 01/24/21 04:00 Hematocrit 42.3 % (42-52) 01/24/21 04:00 Hgb O2 Saturation 93.5 % (95-100) L 01/24/21 04:00 Carboxyhemoglobin 0.5 %THgb (0.4-20.1) 01/24/21 04:00 Methemoglobin 0.8 % (0.4-1.5) 01/24/21 04:00 Total Hemoglobin 13.8 g/dL (14-18) L 01/24/21 04:00 Sodium 125.0 mmol/L (131-143) L 01/24/21 04:00 Potassium 4.9 mmol/L (3.5-5.0) 01/24/21 04:00 Glucose 290.0 mg/dL (70-115) H 01/24/21 04:00 Ionized Calcium 1.2 mmol/L (1.1-1.4) 01/24/21 04:00 O2 Delivery Device Nc 01/24/21 04:00 O2 Liters/Min 45.0 % 01/24/21 04:00 FiO2 75.0 % 01/24/21 04:00 Neurocritical Care Physician ID ellpe 01/24/21 04:00 Sodium 126 mmol/L (136-145) L 01/25/21 04:35 Potassium 5.1 mmol/L (3.5-5.1) 01/25/21 04:35 Chloride 92 mmol/L (98-107) L 01/25/21 04:35 Carbon Dioxide 25 mmol/L (22-29) 01/25/21 04:35 Anion Gap 14.1 (5-19) 01/25/21 04:35 BUN 22 mg/dL (6-20) H 01/25/21 04:35 Creatinine 0.6 mg/dL (0.7-1.2) L 01/25/21 04:35 GFR Calculation 137.9 mL/min (90-130) H 01/25/21 04:35 Glucose 278 mg/dL (65-115) H 01/25/21 04:35 POC Glucose 245 mg/dL (70-110) H 01/25/21 16:50 Serum Osmolality 288 mOsm/kg (278-305) 01/20/21 10:00 Calculated Osmolality 275 mOsm/kg (285-295) L 01/25/21 04:35 Lactic Acid 3.0 mmol/L (0.5-2.2) H 01/16/21 07:15 Lactic Acid (Sepsis) 1.9 mmol/L (0.5-2.2) 01/16/21 10:17 Calcium 8.6 mg/dL (8.5-10.5) 01/25/21 04:35 Total Bilirubin 0.4 mg/dL (0.15-1.2) 01/21/21 04:40 AST 8 U/L (0-40) 01/21/21 04:40 ALT 12 U/L (0-41) 01/21/21 04:40 Alkaline Phosphatase 94 IU/L (40-130) 01/21/21 04:40 Troponin T Baseline 8 ng/L (0-15) 01/16/21 07:15 Troponin T 120 Minute 7.41 ng/L (0-15) 01/16/21 09:05 Delta Troponin T -0.59 ABS# (0-10) L 01/16/21 09:05 Troponin T Hi Sens 6Hr 6.30 ng/L (0-15) 01/16/21 13:16 Troponin T Hi Sens 6Hr Delta -1.70 ng/L (0-12) L 01/16/21 13:16 C-Reactive Protein 92.5 mg/L (0.0-4.9) H 01/18/21 03:38 NT-Pro-B Natriuret Pep 114 pg/mL (0-125) 01/16/21 07:15 Total Protein 7.4 g/dL (6.6-8.7) 01/21/21 04:40 Albumin 3.3 g/dL (3.5-5.2) L 01/21/21 04:40 Globulin 4.1 g/dL (1.3-4.6) 01/21/21 04:40 Aldosterone <1 ng/dL 01/21/21 11:08 Procalcitonin 0.08 ng/mL (0-0.5) 01/17/21 06:00 TSH 0.77 uIU/mL (0.27-4.20) 01/21/21 17:13 Random Cortisol 3.91 ug/dL (2.47-19.5) 01/21/21 17:13 Urine Color Yellow (Yellow) 01/16/21 09:36 Urine Appearance Clear (CLEAR) 01/16/21 09:36 Urine pH 5 (5-7) 01/16/21 09:36 Ur Specific [place] 1.015 (1.005-1.030) 01/16/21 09:36 Urine Protein Neg (Negative) 01/16/21 09:36 Urine Glucose (UA) Norm (Normal) 01/16/21 09:36 Urine Ketones Negative (Negative) 01/16/21 09:36 Urine Blood Neg (Negative) 01/16/21 09:36 Urine Nitrate Negative (Negative) 01/16/21 09:36 Urine Bilirubin Neg (Negative) 01/16/21 09:36 Urine Urobilinogen Norm mg/dL (Negative) 01/16/21 09:36 Ur Leukocyte Esterase Negative (Negative) 01/16/21 09:36 Urine RBC None /hpf (0-2) 01/16/21 09:36 Urine WBC Rare /hpf (0-5) 01/16/21 09:36 Ur Squamous Epith Cells Rare /hpf (0-5) 01/16/21 09:36 Amorphous Sediment Not Reportable 01/16/21 09:36 Urine Bacteria None /hpf (NONE) 01/16/21 09:36 Urine Osmolality 733 mOsm/kg (50-1200) 01/20/21 11:10 Ur Random Sodium 80 mmol/L 01/21/21 17:15 Ur Random Potassium 31 mmol/L 01/21/21 09:30 Ur Random Chloride 59 mmol/L 01/21/21 09:30 Fluid Source Bronchial wash 01/18/21 13:57 RSV Nasal Swab Not detected (Not Detected) 01/17/21 18:45 RSV Nasal Swab Int Cntl Not detected (Not Detected) 01/17/21 18:45 Bronch Specimen Source Right middle lobe 01/18/21 13:57 Bronchial Fluid Color Red 01/18/21 13:57 Bronchial Fluid Appearance Bloody (CLEAR) 01/18/21 13:57 Bronchial Fluid WBC 10 /uL 01/18/21 13:57 Bronchial Fluid RBC 0 10^3/uL 01/18/21 13:57 Bronch Cells Counted TNP 01/18/21 13:57 Serum Ketones Negative (Negative) 01/21/21 17:13 Adenovirus (PCR) Not detected (Not Detected) 01/17/21 18:45 Nasal/Oral COVID-19 PCR Not detected 01/17/21 17:45 Histoplasma Antigen Urine 01/18/21 10:45 Histoplasma Ag (Qnt) None detected ng/mL 01/18/21 10:45 Histoplasma Ag Interp Negative 01/18/21 10:45 HIV 1&2 Ab & HIV 1 Ag Non-reactive (Non-Reactiv) 01/17/21 06:00 HIV 1&2 Antibody Non-reactive (Non-Reactiv) 01/17/21 06:00 Human Metapneumovir PCR Not detected (Not Detected) 01/17/21 18:45 Influenza A (RT-PCR) Not detected (Not Detected) 01/17/21 18:45 Influenza A (H1) PCR Not detected (Not Detected) 01/17/21 18:45 Influenza A (H3) PCR Not detected (Not Detected) 01/17/21 18:45 Influenza B (RT-PCR) Not detected (Not Detected) 01/17/21 18:45 Parainfluenzae Type 1 Not detected (Not Detected) 01/17/21 18:45 Parainfluenzae Type 2 Not detected (Not Detected) 01/17/21 18:45 Parainfluenzae Type 3 Not detected (Not Detected) 01/17/21 18:45 Pneumocystis Source Sputum 01/16/21 11:04 Pneumocystis DNA (PCR) 372 copies/mL H 01/18/21 13:57 Pneumocyst jiroveci PCR Detected A 01/16/21 11:04 Aspergillus Ag (EIA) Not detected 01/18/21 13:57 A. galactomannan Ag Idx <0.50 01/18/21 13:57 RSV Ab Comment see note 01/17/21 18:45 Rhinovirus (PCR) Not detected (Not Detected) 01/17/21 18:45 SARS-CoV-2 Ag (Rapid) Negative (Negative) 01/17/21 18:45 Beta-(1,3)-D-Glucan TNP 01/18/21 13:57 B-(1,3)-D-Glucan Intrp Not Reportable 01/18/21 13:57 Impressions Chest CTA 01/16/21 08:56 IMPRESSION: Interstitial lung disease which by chest x-ray has been progressive since 2013. The groundglass densities are nonspecific and could be related to the chronic interstitial lung disease or could represent an acute process superimposed on chronic lung disease. The differential here is extensive and requires more clinical correlation. One consideration with the symmetric adenopathy would be progressive sarcoidosis. The appearance is not typical for Covid Chest X-Ray 01/22/21 07:32 IMPRESSION: Persistent diffusely increased interstitial markings which have been present dating back to at least December 29, 2020, with some slight interval increase at the left peripheral mid lung. Findings may represent atypical pneumonia or edema superimposed on chronic interstitial lung disease. Underlying malignancy is not excluded. Radiation Dose CTDIVOL = (mGy): DLP = (mGy-cm) A&P Assessment and plan (1) Acute respiratory failure with hypoxemia: Status: Acute (2) Interstitial lung disease: Status: Acute (3) Pneumonia: Status: Acute (4) Restrictive lung disease: Status: Acute (5) Ex-smoker: Status: Acute (6) Pulmonary artery hypertension: Status: Acute (7) Post-COVID syndrome: Status: Acute (8) Polyuria: Status: Acute (9) Hyponatremia: Status: Acute (10) SANDY (acute kidney injury): Status: Acute (11) Hyperkalemia: Status: Acute (12) COPD (chronic obstructive pulmonary disease): Status: Acute Qualifiers: COPD type: unspecified COPD Qualified Code(s): J44.9 - Chronic obstr uctive pulmonary disease, unspecified (13) Obstructive sleep apnea: Status: Acute (14) PCP (pneumocystis carinii pneumonia): Status: Acute #Acute hypoxic respiratory failure with hypoxemia-ILD exacerbation/viral pneumonitis #Undiagnosed ILD-pretty broad differential at this point of time-NSIP/subacute OR chronic HP/CEP/AIP-progressive since 2013 based on x-rays #COPD in ex-smoker 50 pack year history quit 2004 #Group 3 pulmonary hypertension-ILD + COPD + MICHAEL # covid 19 + ve 11/14/20 2 months ago #MICHAEL on CPAP; currently on high flow nasal cannula 45 L 75% #Polyuria-secondary to osmotic diuresis/?? SIADH-osmolality is pending #Hyponatremia--increased free water consumption/Bactrim induced/?? SIADH 127- corrected sodium to [id number] oral salt tablets #Hyperkalemia-5.1-trans cellular shift to high glucose/Bactrim induced -ABG 7.4 // 5/94% on high flow 45 L 75% yesterday -Saturating 92% today on high flow nasal cannula down to 45 L 65%; very slow improvement -Progressive ILD based on chest x-rays since 2013; recent CTD panel as out patient negative -CTA on admission-ruled out PE but predominant reticular interstitial changes- there is mosaic pattern air bronchograms distributed in the upper and lower lobes both centrally anteriorly with no recent nodules or masses. There is some evidence of bilateral bronchiectasis in the upper lobes. This CT is not a typical UIP pattern as there is no evidence of bibasilar honeycombing and presence of extensive GGO's. differentials are too broad for interstitial lung disease & GGOs. -Definitely there is role of significant exposure to wood dust last 25 years and presence of GERD. -Based on recent spirometry 10/24/2020 with moderate restriction and radiological pattern-NSIP/possible acute on chronic HP/acute on chronic eosinophilic pneumonia-difficult to determine underlying cause -S/p bronchoscopy 01/18/2021 and obtained BAL from [facility] - -too-low WBC to do differential -So far sputum culture negative bacterial antigens negative, MRSA negative, UA negative, urine histoplasma, HIV negative, procalcitonin 0.08, Galactomannan, respiratory viral panel-negative; BAL-yeast identified as Janice albicans; discontinued fluconazole -Sputum PCP positive, BAL PCP PCR high 372, beta D glucan D pending -We treated as ILD exacerbation and placed on steroids as well as IV Bactrim ea rly on this admission -Sugars were persistently high due to steroids and IV Bactrim and dextrose req uiring increasing amounts of Lantus at one point up to 40 mg twice daily; and high-dose insulin coverage -Although patient has no evidence of immunosuppression-received only 10 days p.o. prednisone prior to admission; sputum PCP positive can also be commensal in immunocompetent and can also cause hypoxic respiratory failure and given given the rapidity of O2 requirement; will continue 21 days of treatment with Bactrim and to 07/07/2020: Also BAL PCP PCR high at 372 -Patient already received 8 days of imipenem, 5 days Levaquin; discontinued Vancomyicn as MRSA is negative - Other causes of GGO's on CT chest-underlying cardiac cause -but pt had negative nuclear stress testing on 12/12/2020. BNP 114, Echocardiogram 10/24/2020 did reveal 1/4 diastolic dysfunction, preserved EF, pulmonary hypertension at least moderate -repeat echo 01/17/2021 normal LV size and systolic function with EF 68% and mild LVH. No pericardial effusion. -Patient med list showed he is on sildenafil-initially presumed secondary to pulmonary hypertension (as seen on his previous problem list) but patient reported that he is using it for his ED but he does not use it often. Discontinued sildenafil -Monitor intake output, electrolytes and renal functions closely and try to keep fluid balance net negative -Continue DuoNeb nebulization every 6 hours scheduled -Patient needs close monitoring for respiratory status for possible acute decompensation requiring mechanical intubation -Patient has been polyuric and was net -16 L since admission-renal functions normal, serum osmolarity 288/urine osmolality 788, Urine sodium 80.-secondary osmotic diuresis due to high sugars; today corrected sodium 129; . Although euv olemic hyponatremia SIADH is another plausible differential-similar clinical picture is also seen with Bactrim induced tubular blockade of sodium reabsorption; and also the carrier fluid for Bactrim is D5 which makes hyponatremia worse, unfortunately pharmacy reported carrier fluid cannot be changed to NS. Sputum PCP positive for pneumocystis and A-a gradient 54- switched IV Bactrim to p.o. Bactrim to complete total 21 days which will help with patient's hyperglycemia. TSH 0.77; random cortisol 3.91. -Also patient hyperkalemia 5.1 can be secondary to transcellular shifts because of high glucose levels and Bactrim prevents tubular secretion of potassium leading to severe hyperkalemia. Monitor potassium and reduce Lantus to 25 twice daily, lispro 3 mg 3 times daily as we discontinued Bactrim which has lot of dextrose as scheduled fluid. Serum ketones negative At this point of time, patient prognosis remains guarded, given his chronic underlying idiopathic interstitial lung disease-currently FiO2 requirements gradually decreasing 45 L 65%-being treated for PCP pneumonia vs ILD exacer bation with Bactrim and p.o. steroids. - Once patient recovers from this acute episode, Patient needs surgical lung biopsy for definitive diagnosis for his underlying interstitial lung disease. Patient respiratory status has plateaued for last 1 week requiring high flow oxygen. If patient condition worsen-patient may be intubated and would benefit from ECMO as bridge to lung transplant evaluation. Attestations Medical Necessity Statement*: Need hospital stay for respiratory failure req uiring IV antibiotics and further evaluation of interstitial lung disease. Time Spent in Patient Care: Greater than 35 minutes (>than 50% of time spent in counselling and/or direct pt care on unit) . Critical Care Time: The high probability of a clinically significant, sudden or life threatening deterioration of the patient's [pulmonary, infectious disease, fluid and electrolytes, renal] system(s) required my full and direct attention, intervention and personal management. The critical care time is as shown. This time is in addition to time spent performing any reported procedures but includes the following: [x] Data and vital sign review and interpretation [x] Patient assessment, examination and intervention [x] Documentation [x] Medication orders and management Critical Care Time (min): 38 Coding Level of Care Code Established Pt Acute [employer] Work[employer] for Chg Fwd Patient Type Established History Comprehensive Exam Comprehensive Medical Decision Making High Complexity Diagnoses Acute respiratory failure with hypoxemia J96.01 Interstitial lung disease J84.9 Pneumonia J18.9 Restrictive lung disease J98.4 Ex-smoker Z87.891 Pulmonary artery hypertension I27.21 Post-COVID syndrome B94.8 Polyuria R35.89 Hyponatremia E87.1 SANDY (acute kidney injury) N17.9 Hyperkalemia E87.5 COPD (chronic obstructive pulmonary disease) J44.9 COPD type: unspecified COPD Obstructive sleep apnea G47.33 PCP (pneumocystis carinii pneumonia) B59 Time Spent (min) 38
--- NOTE | 2021-01-25 19:45 | PC.NURSE ---
Report called to Jessica Lopez RN, [facility] in [place]. No further questions. Bedside report given to AMANDA Balderrama. Patient to be transferred approximately 2100.
[2021-01-25 20:17] LABS: Fungitell 1-3-B Glucan Assay <31 pg/mL; Interpretation NEGATIVE
[2021-01-25] MEDS: atorvastatin 40 mg Tablet 20 MG PO (20:45)
[2021-01-25 21:36] LABS: Glucose Point of Care 343 mg/dL (70-110)
[2021-01-26] VITALS (11 sets, daily range): BP systolic 121–133; BP diastolic 70–84; PULSE 66–96; RESP 19–29; TEMP 36.7; O2SAT 88–92
[2021-01-26] MEDS: HYDROcodone-acetaminophen 10-325 mg Tablet 1 TAB PO (05:49)
[2021-01-26 06:16] LABS: Glucose Point of Care 213 mg/dL (70-110)
[2021-01-26 06:25] LABS: Basophils # 0.1 10^3/uL (0.0-0.1); Basophils % 0.2 %; Eosinophils # 0.1 10^3/uL (0.0-0.8); Eosinophils % 0.3 %; Hematocrit 39.3 % (42.0-52.0); Hemoglobin 13.1 g/dL (11.7-16.6); Mean Corpuscular HGB Conc 33.3 g/dL (30.0-36.0); Mean Corpuscular Hemoglobin 28.7 pg (28.0-34.0); Mean Platelet Volume 9.2 fL (7.4-10.4); Monocytes % 8.1 %; Neutrophils % 81.1 %; Nucleated Red Blood Cells % 0 %; Platelet Count 421 10^3/cmm (130-400); Red Blood Count 4.57 10^6/uL (4.1-5.3); Red Cell Distribution Width 14.6 % (12.1-15.1)
[2021-01-26] MEDS: insulin lispro 100 unit/1 mL SUBCUT (06:28)
[2021-01-26 06:50] LABS: Anion Gap 15.1 (5-19); Blood Urea Nitrogen 23 mg/dL (6-20); Calcium 8.1 mg/dL (8.5-10.5); Carbon Dioxide 21 mmol/L (22-29); Chloride 93 mmol/L (98-107); Glomerular Filtration Rate 170.2 mL/min (90-130); Glucose 220 mg/dL (65-115); Osmolality Calculated 268 mOsm/kg (285-295); Potassium 5.1 mmol/L (3.5-5.1); Sodium 124 mmol/L (136-145)
--- NOTE | 2021-01-26 07:40 | PC.NURSE ---
0715 EMS here to transport pt to LTAC in [place]. Pt placed on NRB. Transferred to stretcher. All belongings sent with pt. PT left ICU at 1725.
--- NOTE | 2021-01-26 15:49 | PC.SOCIAL ---
spoke with Edwige at [facility]. She reports she just received patient, she is was unable to give a lot of detailed info due to just getting the patient but reports he is settled and good. no needs voiced.
[2021-01-27 01:11] LABS: Plasma Renin Activity LC/MS/MS 44.52 ng/mL/h (0.25-5.82)
== END 2021-01-26 07:25 | DRG 193 ==
LOC: ER 08:21 → MEDSURG 09:02 → ICU 01-17 11:47
PROVIDERS: Internal Medicine; Internal Medicine Pulmonary Disease; Student in an Organized Health Care Education/Training Program; Admitting Provider Internal Medicine; Emergency Provider Family Medicine; PCP Family Medicine; Visit Provider Internal Medicine
PROC: 0BJ08ZZ Inspection of Tracheobronchial Tree, Via Natural or Artificial Opening Endoscopic (ICD-10-PCS; CPT 31622; principal; 2021-01-18 12:30)
DX: J18.9 Pneumonia, unspecified organism (principal); J96.01 Acute respiratory failure with hypoxia; B37.1 Pulmonary candidiasis; J44.0 Chronic obstructive pulmonary disease with (acute) lower respiratory infection; J44.1 Chronic obstructive pulmonary disease with (acute) exacerbation; I50.30 Unspecified diastolic (congestive) heart failure; N17.9 Acute kidney failure, unspecified; E87.1 Hypo-osmolality and hyponatremia; U09.9 Post COVID-19 condition, unspecified; E11.9 Type 2 diabetes mellitus without complications; K21.9 Gastro-esophageal reflux disease without esophagitis; I11.0 Hypertensive heart disease with heart failure; E78.5 Hyperlipidemia, unspecified; G47.33 Obstructive sleep apnea (adult) (pediatric); Z87.891 Personal history of nicotine dependence; I27.20 Pulmonary hypertension, unspecified; J84.112 Idiopathic pulmonary fibrosis; E66.9 Obesity, unspecified; Z68.36 Body mass index [BMI] 36.0-36.9, adult; Z79.84 Long term (current) use of oral hypoglycemic drugs; Z79.4 Long term (current) use of insulin; Z79.891 Long term (current) use of opiate analgesic; Z79.82 Long term (current) use of aspirin; T36.8X5A Adverse effect of other systemic antibiotics, initial encounter; E87.5 Hyperkalemia
CPT/HCPCS: 31624; 36415; 36416; 36600; 71045; 71275; 80048; 80051; 80053; 81001; 82009; 82088; 82330; 82436; 82533; 82803; 82805; 82962; 83605; 83880; 83930; 83935; 84132; 84133; 84145; 84244; 84300; 84443; 84484; 85025; 85378; 85651; 86140; 86403; 87015; 87040; 87070; 87102; 87106; 87116; 87205; 87206; 87210; 87305; 87385; 87426; 87449; 87635; 87641; 87798; 87799; 87801; 87806; 89050; 93005; 93308; 94003; 94640; 94660; 96365; 96372; 96375; 99285; J0330; J0610; J0743; J1650; J1815 ×2; J1940; J1956; J2060; J2405; J2543; J2704; J2920; J2930; J3370; J3490; J7030; J7040; J7512; Q9967